=== PATIENT | female | born 1950 | race Caucasian/White ===

== ENCOUNTER 2017-07-22 12:37 | Emergency (ER) | payer MEDICARE, SELFPAY ==
[2017-07-22 13:42] VITALS: BP 160/74; PULSE 88; RESP 18; TEMP 36.9; O2SAT 97; BMI 21.6
[2017-07-22 13:57] LABS: Apearance,Urine Clear (Clear); Bilirubin,Urine Negative (Negative); Blood, Urine Negative (Negative); Color,Urine Yellow (Yellow); Glucose,Urine (UA) Negative (Negative); Ketones,Urine Negative (Negative); PH,Urine 7.5 (5.0-8.5); Protein,Urine Negative (Negative); Specific Gravity, Urine 1.015 (1.005-1.030); Urobilinogen,Urine 1 EU/dl (0.2)
[2017-07-22 13:58] LABS: UTC Leukocyte Esterase,Urine Negative (Negative); UTC Nitrate,Urine Negative (Negative)
--- NOTE | 2017-07-22 14:21 | HMH.EDUTC ---
[facility] [place] Disposition Clinical Impression: Burning with urination Disposition: Home, Self-Care Condition on Discharge: Good Instructions: Urine Culture Additional Instructions: Drink plenty of fluids FOllow up with family doctor for Urine Culture results Return if needed Referrals: Khai Cates MD [Primary Care Provider] - Time of Disposition: 14:46 Medical Decision Making Vital Signs: 07/22/17 13:42 Temperature 98.5 F Temperature Source Temporal Artery Scan Pulse Rate [Right] 88 Respiratory Rate 18 Blood Pressure [Right Arm] 160/74 Blood Pressure Mean [Right Arm] 102 Blood Pressure Source [Right Arm] Automatic Cuff Blood Pressure Position [Right Arm] Sitting 02 Sat by Pulse Oximetry 97 Oxygen Delivery Method Room Air - Lab Data Lab Results 07/22/17 13:56: Urine Color Yellow, Urine Appearance Clear, Urine pH 7.5, Ur Specific [place] 1.015, Urine Protein Negative, Urine Glucose (UA) Negative, Urine Ketones Negative, Urine Blood Negative, Urine Nitrate Negative, Urine Bilirubin Negative, Urine Urobilinogen 1, Ur Leukocyte Esterase Negative - Arya Inquiry Pt receiving controlled substance: No Arya was queried for this patient: No [facility] [place] HPI - General Stated complaint: POSS UTI Mode of Arrival: Ambulatory Source of Information: Patient Limitations: No Limitations Description of Symptoms (Recalled from Triage Doc. by RN): DYSURIA HEENT Symptoms (Recalled from RN notes): No Resp Symptoms (Recalled from RN notes): No Skin Symptoms (Recalled from RN notes): No MS Symptoms (Recalled from RN notes): No Functional Status (Recalled from RN notes): N - History of Present Illness Provider Complaint: Patient state that she has been having burning with urination, and she has been taken AZO and still having some burning with urination Severity scale (1-10): 3 Quality: burning Consistency: intermittent Relieving factors: none Exacerbating factors: none Treatments prior to arrival: none - Related Data Allergies Allergy/AdvReac Type Severity Reaction Status Date / Time No Known Drug Allergies Allergy Unknown Unverified 07/07/17 14:55 [NKDA] - Worker's Comp Is this a Worker's Comp case?: No [facility] History - *Social History Alcohol Intake: never - Psychiatric History Expresses thoughts of harming self/others: None Suicide Plan Description: No Plan - Genitourinary Reports painful urination Physical Exam - General General appearance: alert, in no apparent distress - ENT ENT exam: Present: normal exam, normal oropharynx, mucous membranes moist, TM's normal bilaterally, normal external ear exam - Respiratory Respiratory exam: Present: normal lung sounds bilaterally. Absent: respiratory distress - Cardiovascular Cardiovascular exam: Present: regular rate, normal rhythm. Absent: JVD - Abdominal Exam Abdominal exam: Present: soft, normal bowel sounds. Absent: distention, tenderness, guarding Comment: Patient still complaining of burning with urination even though she had taken AZO last week - Neurological Exam Neurological exam: Present: alert, oriented X3 - Psychiatric Psychiatric exam: Present: agitated - Other Other exam information: Patient highly agitated upon given her the results of her UA test advised patient that her urine was going to be sent for culture and she could follow up with family doctor for results and patient became more upset and left Dr MADDY office called and informed of finding and testing results and that urine was sent for culture
--- NOTE | 2017-07-22 14:28 | ED_ITS ---
[facility] [place] Disposition Clinical Impression: Burning with urination Disposition: Home, Self-Care Condition on Discharge: Good Instructions: Urine Culture Additional Instructions: Drink plenty of fluids FOllow up with family doctor for Urine Culture results Return if needed Referrals: Khai Cates MD [Primary Care Provider] - Time of Disposition: 14:46 Medical Decision Making Vital Signs: 07/22/17 13:42 Temperature 98.5 F Temperature Source Temporal Artery Scan Pulse Rate [Right] 88 Respiratory Rate 18 Blood Pressure [Right Arm] 160/74 Blood Pressure Mean [Right Arm] 102 Blood Pressure Source [Right Arm] Automatic Cuff Blood Pressure Position [Right Arm] Sitting 02 Sat by Pulse Oximetry 97 Oxygen Delivery Method Room Air - Lab Data Lab Results 07/22/17 13:56: Urine Color Yellow, Urine Appearance Clear, Urine pH 7.5, Ur Specific [place] 1.015, Urine Protein Negative, Urine Glucose (UA) Negative, Urine Ketones Negative, Urine Blood Negative, Urine Nitrate Negative, Urine Bilirubin Negative, Urine Urobilinogen 1, Ur Leukocyte Esterase Negative - Arya Inquiry Pt receiving controlled substance: No Arya was queried for this patient: No [facility] [place] HPI - General Stated complaint: POSS UTI Mode of Arrival: Ambulatory Source of Information: Patient Limitations: No Limitations Description of Symptoms (Recalled from Triage Doc. by RN): DYSURIA HEENT Symptoms (Recalled from RN notes): No Resp Symptoms (Recalled from RN notes): No Skin Symptoms (Recalled from RN notes): No MS Symptoms (Recalled from RN notes): No Functional Status (Recalled from RN notes): N - History of Present Illness Provider Complaint: Patient state that she has been having burning with urination, and she has been taken AZO and still having some burning with urination Severity scale (1-10): 3 Quality: burning Consistency: intermittent Relieving factors: none Exacerbating factors: none Treatments prior to arrival: none - Related Data Allergies Allergy/AdvReac Type Severity Reaction Status Date / Time No Known Drug Allergies Allergy Unknown Unverified 07/07/17 14:55 [NKDA] - Worker's Comp Is this a Worker's Comp case?: No [facility] History - *Social History Alcohol Intake: never - Psychiatric History Expresses thoughts of harming self/others: None Suicide Plan Description: No Plan - Genitourinary Reports painful urination Physical Exam - General General appearance: alert, in no apparent distress - ENT ENT exam: Present: normal exam, normal oropharynx, mucous membranes moist, TM's normal bilaterally, normal external ear exam - Respiratory Respiratory exam: Present: normal lung sounds bilaterally. Absent: respiratory distress - Cardiovascular Cardiovascular exam: Present: regular rate, normal rhythm. Absent: JVD - Abdominal Exam Abdominal exam: Present: soft, normal bowel sounds. Absent: distention, tenderness, guarding Comment: Patient still complaining of burning with urination even though she had taken AZO last week - Neurological Exam Neurological exam: Present: alert, oriented X3 - Psychiatric Psychiatric exam: Present: agitated - Other Other exam information: Patient highly agitated upon given her the results of her UA test advised pat
== END 2017-07-22 14:50 | disposition home or self-care (01) ==
LOC: UTC 12:44
PROVIDERS: Emergency Provider Nurse Practitioner; PCP Family Medicine
DX: R31.9 Hematuria, unspecified (principal)
CPT/HCPCS: 81003; 99202

== ENCOUNTER → 2018-01-29 09:59 | Outpatient (CLI) | payer MEDICARE, SELFPAY ==
--- NOTE | 2018-01-29 | MM_ITS ---
MM Dig screening mamm BI w/CAD CAD Screening COMPARISON: Digital mammograms with CAD 12/09/2016 and additional prominence on views left breast 12/19/2016 INDICATION: There is a history of breast cancer in patient's mother diagnosed in her 60s and maternal great-grandmother. TECHNIQUE: Standard CC and MLO images were obtained. R2 CAD reviewed. FINDINGS: Mild to moderate fibroglandular densities are seen in the subareolar regions of both breasts. There is a faint asymmetric density inner quadrant left breast and this was noted to press out on the spot compression additional views 12/19/2016 there are couple benign-appearing calcifications left breast. There is no suspicious lesion and no suspicious microcalcifications. IMPRESSION: Fibrofatty parenchyma with no suspicious lesion seen BI-RADS Category: 2 Benign Finding(s) RECOMMENDED FOLLOW-UP: 1YR - 1 YEAR FOLLOW-UP (A letter has been sent to the patient regarding results of the study.)
== END ==
PROVIDERS: PCP Family Medicine; Visit Provider Family Medicine
DX: Z12.31 Encounter for screening mammogram for malignant neoplasm of breast (principal)
CPT/HCPCS: 77067

== ENCOUNTER 2018-05-04 16:09 | Inpatient (IN) ==
[2018-05-04 16:28] LABS: Basophils % 0.4 % (0.1-2.0); Eosinophils # 0.3 K/mm3 (0.0-0.4); Eosinophils % 2.5 % (0.1-12.0); Hematocrit 44.4 % (37.0-47.0); Hemoglobin 14.8 g/dL (12.2-16.2); Lymphocytes # 4.2 K/mm3 (0.7-4.5); Lymphocytes % 35.8 K/mm3 (10-50); Mean Corpuscular HGB Conc 33.4 g/dL (31.8-35.4); Mean Corpuscular Volume 95.7 fl (81-99); Mean Platelet Volume 7.3 fl (7.4-10.4); Monocytes # 0.6 K/mm3 (0.1-1.0); Monocytes % 4.9 % (1.7-9.3); Neutrophils # 6.6 K/mm3 (1.8-7.8); Neutrophils % 56.5 % (37.0-80.0); Platelet Count 269 K/mm3 (142-424); Red Blood Count 4.65 M/mm3 (4.20-5.40); Red Cell Distribution Width 13.5 % (11.5-17.5); White Blood Count 11.6 K/mm3 (4.8-10.8)
--- NOTE | 2018-05-04 16:28 | Emergency Department Note ---
ED Disposition Clinical Impression: STEMI (ST elevation myocardial infarction) Disposition: Still a Patient Condition on Discharge: Fair - Critical Care Critical Care Time: No Attestation: On , the high probability of a clinically significant, sudden or life threatening deterioration of the following system(s) required my full and direct attention, intervention and personal management. The time I documented below is in addition to time spent performing reported procedures but includes the following listed in this critical care notation. Medical Decision Making - Arya Inquiry Pt receiving controlled substance: No Arya was queried for this patient: No Vital Signs: 05/04/18 16:10 Temperature 98.1 F Temperature Source Oral Pulse Rate [Right Radial] 74 Respiratory Rate 18 Blood Pressure [Right Arm] 97/58 L Blood Pressure Mean [Right Arm] 71 Blood Pressure Source [Right Arm] Automatic Cuff Blood Pressure Position [Right Arm] Supine 02 Sat by Pulse Oximetry 96 Oxygen Delivery Method Room Air Orders (Tests/Meds): ED MEDICATIONS Generic Name Dose Route Start Last Admin Trade Name Freq PRN Reason Stop Dose Admin Sodium Chloride 1,000 mls @ 999 mls/hr 05/04/18 16:30 Sod Chlor 0.9% 1000ml Bag IV 05/04/18 17:30 .Q1H1M DEMETRIS Ticagrelor 180 mg 05/04/18 16:24 Brilinta 90mg Tablet PO 05/04/18 16:25 ONCE ONE Discontinued Medications Generic Name Dose Route Start Last Admin Trade Name Freq PRN Reason Stop Dose Admin Heparin Sodium (Porcine) 6,100 unit 05/04/18 16:23 Heparin Sodium 5,000 Units/Ml Vial 100 unit/kg (6100 unit) 05/04/18 16:24 IV ONCE ONE - ECG Data Tracing #1 Normal sinus rhythm 66/min first-degree AV block with ST elevation MS and inferior leads and reciprocal changes in the anterior leads. ECG initial impression date: 05/04/18 ECG initial impression time: 16:15 Medical Decision Narrative: As described in the HPI I contacted Dr. Robins who recommended heparin bolus , berlnta and transport to lab[facility]. Chest Pain HPI - General Chief Complaint: Chest Pain Stated Complaint: Chest pain Time Seen by Provider: 05/04/18 16:10 Mode of Arrival: Wheelchair Limitations: No Limitations Description of Symptoms (Recalled from ER Triage Doc. 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 On arrival to the ED obtain 12-lead EKG that showed ST elevation MS in inferior leads with reciprocal changes in anterior leads. I contacted Dr. Robins economic analyst and activated the Clutch Mechanic. He recommended heparin 6000 units, Brilinta on 180 mg p.o. and transport to the Clutch Mechanic. MD complaint: chest pain indicative of cardiac Onset (ago): minute(s) (45 minutes prior to arrival) Time: 15:45 Duration: constant Activity at onset: during rest Pain location: substernal Severity: severe Pain radiation: none Relieving factors: nothing Exacerbating factors: nothing Associated symptoms: nausea, vomiting Treatments prior to or on arrival for Cardiac Chest Pain: none - Related Data Allergies Allergy/AdvReac Type Severity Reaction Status Date / Time No Known Drug Allergies Allergy Unknown Verified 05/04/18 16:18 [NKDA] [facility] History I have reviewed the patient's past medical history: Yes - Social History Educational Level: Completed High School Smoking Status: Current every day smoker Tobacco Type: cigarettes Alcohol Intake: never - Psychiatric History Expresses thoughts of harming self/others: None Suicide Plan Description: No Plan ROS Obtained: Yes All systems reviewed & no additional complaints Physical Exam - General General appearance: alert, in no apparent distress - Head Head exam: atraumatic, normocephalic, normal inspection - Eye Eye exam: Present: normal appearance, PERRL, EOMI. Absent: scleral icterus, nystagmus - ENT ENT exam: Present: normal exam, normal oropharynx, mucous membranes moist, TM's normal bilaterally, normal external ear exam - Neck Neck exam: Present: normal inspection, full ROM, trachea midline. Absent: tenderness, meningismus, lymphadenopathy - Chest Chest inspection: Present: normal inspection, symmetric chest wall rise. Absent: tenderness - Respiratory Respiratory exam: Present: normal lung sounds bilaterally. Absent: respiratory distress - Cardiovascular Cardiovascular exam: Present: regular rate, normal rhythm, normal heart sounds. Absent: JVD - Abdominal Exam Abdominal exam: Present: soft, normal bowel sounds. Absent: distention, tenderness, guarding - Extremities Exam Extremities exam: Present: normal inspection, full ROM, normal capillary refill. Absent: tenderness, calf tenderness - Back Exam Back exam: Present: normal inspection. Absent: tenderness, CVA tenderness (R), CVA tenderness (L) - Neurological Exam Neurological exam: Present: alert, oriented X3, CN II-XII intact, motor sensory deficit - Psychiatric Psychiatric exam: Present: normal affect, normal mood - Skin Skin exam: Present: warm, dry, intact, normal color - Lymphatic Lymphatic Findings: no adenopathy
[2018-05-04 16:37] LABS: Activated Partial Thrombo Time 24.5 seconds (23.6-34.0); INR 1.06 (0.9-1.1); Prothrombin Time 10.9 seconds (9.4-11.8)
[2018-05-04 16:53] LABS: Anion Gap 12.4 mEq/L (5-15); Potassium 3.4 mmoL/L (3.5-5.1)
--- NOTE | 2018-05-04 18:24 | History & Physical Report ---
*Admission Date: 05/04/18 <Milagro Alexander - 05/04/18 18:27> *Chief complaint: chest pain; STEMI <Milagro Alexander - 05/04/18 18:27> *History of present illness: Ms. gonzalez is a 67-year-old female with a history of hypertension anxiety depression, and some alcohol abuse and tobacco abuse who presented to [facility] emergency room with severe sharp left anterior chest pain associated with nausea and vomiting. Patient was seen in the office of [facility] early in the afternoon and was felt to have a bronchitis. At that time she denied any chest pain and shortness of breath. She noted that she had not felt well for the past 3 weeks; she had a flu shot 2 weeks ago and felt that she was worse after this. She had a nonproductive dry cough; was short of breath with exertion; she had some wheezing, chest congestion, headache, body aches, and dizziness. She did have some chest discomfort with deep inspiration. After leaving the office of [facility] which time she did some grocery shopping and obtained her medicine. While waiting for her medicine she became nauseated. When traveling home her had to stop at which time she vomited. She is did start to have some chest pain at some point in time. It became excruciating by the time she got to the emergency room at [facility] Patient was evaluated in the emergency room with noted EKG changes. Dr. Robins was notified and she was transferred to the cardiac [facility] for immediate cardiac cath. Troponin I was initially mildly elevated. Cardiac cath impression and plan are as follows: IMPRESSION: 1. Acute myocardial infarction involving a proximal massively large dominant right coronary artery which functions as both the dominant right coronary artery and the nondominant circumflex artery 2. Successful thrombectomy followed by drug-eluting stenting to the proximal mid and distal dominant right coronary artery 3. Mastic ejection fraction with mild regional wall motion abnormality 4. Mildly elevated LVEDP although probably normal for the circumstances 5. Moderate disease in the mid LAD PLAN: 1. Brilinta and aspirin for one year 2. Absolute tobacco cessation and avoidance 3. LDL less than 55 4. Supportive care for the next 48 hours 5. Carvedilol plus lisinopril once patient is stable with plans to uptitrate At the time of this exam patient is sitting up in bed eating a sandwich. She still has some left anterior chest pain but nothing like it was prior to the cath. Has shortness of breath and nausea. <Milagro Alexander 05/04/18 18:41> [facility] History Medical History: Reports:: Anxiety, Atherosclerotic Heart Disease, Chronic Obstructive Pulmonary Disease (COPD), Coronary Artery Disease, Depression, Gastroesophageal Reflux Disease(GERD), Hyperlipidemia Denies:: Diabetes Mellitus Type 1, Diabetes Mellitus Type 2 <AlexanderMilagro Yovani 05/04/18 18:41> Laterality Cases: Bilateral: Cataract <BenjaminMilagro Yovani 05/04/18 18:41> Other Surgeries: Yes: Appendectomy <Milagro Alexander Yovani 05/04/18 18:27> - *Social History Educational Level: Completed High School <Alexander,Milagro Yovani 05/04/18 18:27> Smoking Status: Current every day smoker <Alexander,Milagro Yovani 05/04/18 18:27> Tobacco Type: cigarettes <Milagro Alexander 05/04/18 18:27> # Packs/Day (cigarettes): 15 <Milagro Alexander 05/04/18 18:27> Alcohol Intake: never <Milagro Alexander Yovani 05/04/18 18:27> Occupational Status: retired <BenjaminMilagro Yovani 05/04/18 18:27> Household Members: spouse <Milagro Alexander 05/04/18 18:27> - Psychiatric History Expresses thoughts of harming self/others: None <Milagro Alexander 05/04/18 18:27> Suicide Plan Description: No Plan <Alexander,Milagro - 05/04/18 18:27> *Family Hx:: Cancer, Coronary Artery Disease, Diabetes, Heart Attack, Hyperlipidemia, Hypertension, Kidney Disease, Stroke, Thyroid Disorder <Milagro Alexander 05/04/18 18:27> Review of Systems - Constitutional Reports body ache(s), Reports headache(s), Reports weakness <Milagro Alexander 05/04/18 18:41> - ENT Denies ear pain, Denies sore throat <Milagro Alexander 05/04/18 18:41> - *Cardiovascular Reports chest pain, Reports shortness of breath with activity, Denies irregular heart rhythm, Denies leg swelling <Milagro Alexander - 05/04/18 18:41> - *Respiratory Reports cough (Dry) <Milagro Alexander - 05/04/18 18:41> - *Gastrointestinal Reports nausea, Reports vomiting, Denies abdominal pain <Milagro Alexander - 05/04/18 18:41> - *Genitourinary Denies difficulty urinating <Milagro Alexander - 05/04/18 18:41> - *Musculoskeletal Reports body aches <Milagro Alexander - 05/04/18 18:41> - *Neurologic Reports headache(s) <Milagro Alexander 05/04/18 18:41> Meds Allergies Allergy/AdvReac Type Severity Reaction Status Date / Time No Known Drug Allergies Allergy Unknown Verified 05/04/18 16:18 [NKDA] <Larry Baez - 05/05/18 08:56> Exam Vital signs and Labs for Last 24 Hours: Temp Pulse Resp BP Pulse Ox 97.6 F 77 16 138/75 100 05/05/18 00:00 05/05/18 06:45 05/05/18 06:45 05/05/18 06:45 05/05/18 06:45 Laboratory Results - last 24 hr 05/04/18 16:26: WBC 11.6 H, RBC 4.65, Hgb 14.8, Hct 44.4, MCV 95.7, MCH 32.0 H, MCHC 33.4, RDW 13.5, Plt Count 269, MPV 7.3 L, Neut % (Auto) 56.5, Lymph % (Auto) 35.8, [place] % (Auto) 4.9, Eos % (Auto) 2.5, Baso % (Auto) 0.4, Neut # (Auto) 6.6, Lymph # (Auto) 4.2, [place] # (Auto) 0.6, Eos # (Auto) 0.3, Baso # (A uto) 0.0 05/04/18 16:26: Sodium 139, Potassium 3.4 L, Chloride 102, Carbon Dioxide 28, Anion Gap 12.4, BUN 11, Creatinine 0.91, Estimated Creat Clear 51, Estimated GFR 61, Est GFR ( Amer) 74, Glucose 175 H, Calcium 9.0, Total Creatine Kinase 44, CK-MB (CK-2) 1.0, CK-MB (CK-2) Rel Index 2.3, Troponin I 0.08 H 05/04/18 16:26: PT 10.9, INR 1.06, APTT 24.5 05/04/18 16:34: Activated Clotting Time 267 H* 05/04/18 16:53: Activated Clotting Time 323 H* D 05/05/18 05:28: WBC 11.3 H, RBC 4.24, Hgb 13.5, Hct 39.9, MCV 94.0, MCH 31.9 H, MCHC 33.9, RDW 13.6, Plt Count 244, MPV 8.0, Neut % (Auto) 81.4 H, Lymph % (Auto) 14.3, [place] % (Auto) 4.1, Eos % (Auto) 0.1, Baso % (Auto) 0.1, Neut # (Auto) 9.2 H, Lymph # (Auto) 1.6, [place] # (Auto) 0.5, Eos # (Auto) 0.0, Baso # (Auto) 0.0 05/05/18 05:28: Sodium 131 L, Potassium 3.1 L, Chloride 98, Carbon Dioxide 28, Anion Gap 8.1, BUN 12, Creatinine 0.75, Estimated Creat Clear 54, Estimated GFR 77, Est GFR ( Amer) 93 D, Glucose 174 H, Calcium 8.8 <Larry Baez - 05/05/18 08:56> Temp Pulse Resp BP Pulse Ox 98.2 F 72 20 115/64 95 05/04/18 16:51 05/04/18 17:18 05/04/18 17:18 05/04/18 17:18 05/04/18 17:18 Laboratory Results - last 24 hr 05/04/18 16:26: WBC 11.6 H, RBC 4.65, Hgb 14.8, Hct 44.4, MCV 95.7, MCH 32.0 H, MCHC 33.4, RDW 13.5, Plt Count 269, MPV 7.3 L, Neut % (Auto) 56.5, Lymph % (Auto) 35.8, [place] % (Auto) 4.9, Eos % (Auto) 2.5, Baso % (Auto) 0.4, Neut # (Auto) 6.6, Lymph # (Auto) 4.2, [place] # (Auto) 0.6, Eos # (Auto) 0.3, Baso # (Auto) 0.0 05/04/18 16:26: Sodium 139, Potassium 3.4 L, Chloride 102, Carbon Dioxide 28, Anion Gap 12.4, BUN 11, Creatinine 0.91, Estimated Creat Clear 51, Estimated GFR 61, Est GFR ( Amer) 74, Glucose 175 H, Calcium 9.0, Total Creatine Kinase 44, CK-MB (CK-2) 1.0, CK-MB (CK-2) Rel Index 2.3, Troponin I 0.08 H 05/04/18 16:26: PT 10.9, INR 1.06, APTT 24.5 05/04/18 16:34: Activated Clotting Time 267 H* 05/04/18 16:53: Activated Clotting Time 323 H* D <Milagro Alexander - 05/04/18 18:27> I & O for Last 24 hours: Intake & Output 05/02/18 05/03/18 05/04/18 05/05/18 11:59 11:59 11:59 11:59 Intake Total 600 / 600 Balance 600 / 600 Weight 142 lb 9 oz <Larry Baez - 05/05/18 08:56> Intake & Output 05/02/18 05/03/18 05/04/18 05/05/18 11:59 11:59 11:59 11:59 Weight 135 lb <Milagro Alexander - 05/04/18 18:27> - Constitutional no acute distress <Milagro Alexander - 05/04/18 18:41> - *Routine HEENT Exam Head: Present: normocephalic, atraumatic <Milagro Alexander - 05/04/18 18:41> Eye: Present: PERRL. Absent: conjunctival icterus, scleral injection <Milagro Alexander - 05/04/18 18:41> ENT: Present: mucous membranes moist, oropharynx clear <Milagro Alexander - 05/04/18 18:41> - *Routine Respiratory Exam Present: wheezes <Milagro Alexander - 05/04/18 18:41> - *Routine Cardiovascular Exam Present: RRR <Milagro Alexander - 05/04/18 18:41> Comments: Monitor showing sinus rhythm with ST elevation <Milagro Alexander - 05/04/18 18:41> - *Routine Abdominal Exam Present: soft, normoactive bowel sounds. Absent: tenderness <Milagro Alexander - 05/04/18 18:41> - *Routine Extremities Exam Absent: edema, tenderness <Milagro Alexander - 05/04/18 18:41> - *Routine Neurological Exam Present: alert, oriented X3 <Milagro Alexander - 05/04/18 18:41> Assessment and Plan (1) STEMI (ST elevation myocardial infarction) Current visit: Yes Status: Acute Category: Medical Code(s): I21.3 - ST elevation (STEMI) myocardial infarction of unspecified site (2) HTN (hypertension) Current visit: Yes Status: Chronic Category: Medical Code(s): I10 - Essential (primary) hypertension (3) URI (upper respiratory infection) Current visit: Yes Status: Acute Category: Medical Code(s): J06.9 - Acute upper respiratory infection, unspecified (4) Anxiety Current visit: Yes Status: Chronic Category: Medical Code(s): F41.9 - Anxiety disorder, unspecified (5) Nausea Current visit: Yes Status: Acute Category: Medical Code(s): R11.0 - Nausea (6) GERD (gastroesophageal reflux disease) Current visit: Yes Status: Acute Category: Medical Code(s): K21.9 - Gastro-esophageal reflux disease without esophagitis (7) Hypokalemia Current visit: Yes Status: Acute Category: Medical Code(s): E87.6 - Hypokalemia <Larry Baez - 05/05/18 08:56> (1) STEMI (ST elevation myocardial infarction) Current visit: Yes Status: Acute Category: Medical Code(s): I21.3 - ST elevation (STEMI) myocardial infarction of unspecified site (2) HTN (hypertension) Current visit: Yes Status: Acute Category: Medical Code(s): I10 - Essential (primary) hypertension (3) URI (upper respiratory infection) Current visit: Yes Status: Acute Category: Medical Code(s): J06.9 - Acute upper respiratory infection, unspecified (4) Anxiety Current visit: Yes Status: Acute Category: Medical Code(s): F41.9 - Anxiety disorder, unspecified (5) Nausea (6) GERD (gastroesophageal reflux disease) (7) Hypokalemia <Milagro Alexander - 05/04/18 18:28> - Assessment and plan all Dx Assessment and Plan for all problems:: Patient seen and examined. Concur with above assesment and plan. She is comfortable at present. <Larry Baez - 05/05/18 08:56> continue care and meds as per cardiology; will reassess need for meds for bronchitis in AM <Milagro Alexander - 05/04/18 18:41>
[2018-05-05 06:23] LABS: Anion Gap 8.1 mEq/L (5-15); Calcium 8.8 mg/dL (8.5-10.1); Potassium 3.1 mmoL/L (3.5-5.1)
[2018-05-05 07:58] LABS: Basophils % 0.1 % (0.1-2.0); Eosinophils % 0.1 % (0.1-12.0); Hematocrit 39.9 % (37.0-47.0); Hemoglobin 13.5 g/dL (12.2-16.2); Lymphocytes # 1.6 K/mm3 (0.7-4.5); Lymphocytes % 14.3 K/mm3 (10-50); Mean Corpuscular HGB Conc 33.9 g/dL (31.8-35.4); Mean Corpuscular Hemoglobin 31.9 pg (27.0-31.2); Monocytes # 0.5 K/mm3 (0.1-1.0); Monocytes % 4.1 % (1.7-9.3); Neutrophils # 9.2 K/mm3 (1.8-7.8); Neutrophils % 81.4 % (37.0-80.0); Platelet Count 244 K/mm3 (142-424); Red Blood Count 4.24 M/mm3 (4.20-5.40); Red Cell Distribution Width 13.6 % (11.5-17.5); White Blood Count 11.3 K/mm3 (4.8-10.8)
--- NOTE | 2018-05-05 08:27 | Progress Note ---
<Milagro Alexander - Last Filed: 05/05/18 09:43> Internal Medicine - PN: Subj Interval history: Patient's slept very little last night. She had some midsternalepigastric discomfort. Mylanta really did not help much. She is somewhat nauseated this morning and does not feel like eating breakfast. Monitor is showing sinus rhythm with ST depression and frequent ectopy. Reviewed nurse's notes. Due to anesthetia DNR not discussed last night with patient. I did discuss with patient this morning and explained to her what this meant specifically. She does not have a living will and would like to initiate this process. We will consult care management for this. At this time she does not want to be a DNR. Patient is alert and oriented x3 this a.m. Exam Vital signs and Labs for Last 24 Hours: Temp Pulse Resp BP Pulse Ox 97.6 F 77 16 138/75 100 05/05/18 00:00 05/05/18 06:45 05/05/18 06:45 05/05/18 06:45 05/05/18 06:45 Laboratory Results - last 24 hr 05/04/18 16:26: WBC 11.6 H, RBC 4.65, Hgb 14.8, Hct 44.4, MCV 95.7, MCH 32.0 H, MCHC 33.4, RDW 13.5, Plt Count 269, MPV 7.3 L, Neut % (Auto) 56.5, Lymph % (Auto) 35.8, Fergus % (Auto) 4.9, Eos % (Auto) 2.5, Baso % (Auto) 0.4, Neut # (Auto) 6.6, Lymph # (Auto) 4.2, Fergus # (Auto) 0.6, Eos # (Auto) 0.3, Baso # (Auto) 0.0 05/04/18 16:26: Sodium 139, Potassium 3.4 L, Chloride 102, Carbon Dioxide 28, Anion Gap 12.4, BUN 11, Creatinine 0.91, Estimated Creat Clear 51, Estimated GFR 61, Est GFR ( Amer) 74, Glucose 175 H, Calcium 9.0, Total Creatine Kinase 44, CK-MB (CK-2) 1.0, CK-MB (CK-2) Rel Index 2.3, Troponin I 0.08 H 05/04/18 16:26: PT 10.9, INR 1.06, APTT 24.5 05/04/18 16:34: Activated Clotting Time 267 H* 05/04/18 16:53: Activated Clotting Time 323 H* D 05/05/18 05:28: WBC 11.3 H, RBC 4.24, Hgb 13.5, Hct 39.9, MCV 94.0, MCH 31.9 H, MCHC 33.9, RDW 13.6, Plt Count 244, MPV 8.0, Neut % (Auto) 81.4 H, Lymph % (Auto) 14.3, Fergus % (Auto) 4.1, Eos % (Auto) 0.1, Baso % (Auto) 0.1, Neut # (Auto) 9.2 H, Lymph # (Auto) 1.6, Fergus # (Auto) 0.5, Eos # (Auto) 0.0, Baso # (Auto) 0.0 05/05/18 05:28: Sodium 131 L, Potassium 3.1 L, Chloride 98, Carbon Dioxide 28, Anion Gap 8.1, BUN 12, Creatinine 0.75, Estimated Creat Clear 54, Estimated GFR 77, Est GFR ( Amer) 93 D, Glucose 174 H, Calcium 8.8 I & O for Last 24 hours: Intake & Output 05/02/18 05/03/18 05/04/18 05/05/18 11:59 11:59 11:59 11:59 Intake Total 480 / 480 Balance 480 / 480 Weight 142 lb 9 oz - Constitutional no acute distress Comments: Sitting up in the bed. - *Routine Respiratory Exam Comments: Scattered wheezing bilaterally with coarse rhonchi - *Routine Cardiovascular Exam Present: RRR (Monitor showing sinus rhythm with ST elevation and frequent ectopy) - *Routine Abdominal Exam Present: soft, normoactive bowel sounds. Absent: tenderness - *Routine Extremities Exam Absent: edema, calf tenderness - *Routine Neurological Exam Present: alert, oriented X3 Assessment and Plan (1) STEMI (ST elevation myocardial infarction) Current visit: Yes Status: Acute Category: Medical Code(s): I21.3 - ST elevation (STEMI) myocardial infarction of unspecified site (2) HTN (hypertension) Current visit: Yes Status: Chronic Category: Medical Code(s): I10 - Essential (primary) hypertension (3) URI (upper respiratory infection) Current visit: Yes Status: Acute Category: Medical Code(s): J06.9 - Acute upper respiratory infection, unspecified (4) Anxiety Current visit: Yes Status: Chronic Category: Medical Code(s): F41.9 - Anxiety disorder, unspecified (5) Nausea Current visit: Yes Status: Acute Category: Medical Code(s): R11.0 - Nausea (6) GERD (gastroesophageal reflux disease) Current visit: Yes Status: Acute Category: Medical Code(s): K21.9 - Gastro-esophageal reflux disease without esophagitis (7) Hypokalemia Current visit: Yes Status: Acute Category: Medical Code(s): E87.6 - Hypokalemia - Assessment and plan all Dx Assessment and Plan for all problems:: Patient will be started on albuterol inhaler for her wheezing, Protonix for her GERD and epigastric pain, potassium for her hypokalemia, Zofran for her nausea, and we will do the chest x-ray portable. Discussed with [facility]. Cardiac meds jessica managed by cardiology. <Larry Baez - Last Filed: 05/05/18 10:03> Exam Vital signs and Labs for Last 24 Hours: Temp Pulse Resp BP Pulse Ox 97.6 F 77 16 138/75 100 05/05/18 00:00 05/05/18 06:45 05/05/18 06:45 05/05/18 06:45 05/05/18 06:45 Laboratory Results - last 24 hr 05/04/18 16:26: WBC 11.6 H, RBC 4.65, Hgb 14.8, Hct 44.4, MCV 95.7, MCH 32.0 H, MCHC 33.4, RDW 13.5, Plt Count 269, MPV 7.3 L, Neut % (Auto) 56.5, Lymph % (Auto) 35.8, Fergus % (Auto) 4.9, Eos % (Auto) 2.5, Baso % (Auto) 0.4, Neut # (Auto) 6.6, Lymph # (Auto) 4.2, Fergus # (Auto) 0.6, Eos # (Auto) 0.3, Baso # (Auto) 0.0 05/04/18 16:26: Sodium 139, Potassium 3.4 L, Chloride 102, Carbon Dioxide 28, Anion Gap 12.4, BUN 11, Creatinine 0.91, Estimated Creat Clear 51, Estimated GFR 61, Est GFR ( Amer) 74, Glucose 175 H, Calcium 9.0, Total Creatine Kinase 44, CK-MB (CK-2) 1.0, CK-MB (CK-2) Rel Index 2.3, Troponin I 0.08 H 05/04/18 16:26: PT 10.9, INR 1.06, APTT 24.5 05/04/18 16:34: Activated Clotting Time 267 H* 05/04/18 16:53: Activated Clotting Time 323 H* D 05/05/18 05:28: WBC 11.3 H, RBC 4.24, Hgb 13.5, Hct 39.9, MCV 94.0, MCH 31.9 H, MCHC 33.9, RDW 13.6, Plt Count 244, MPV 8.0, Neut % (Auto) 81.4 H, Lymph % (Auto) 14.3, Fergus % (Auto) 4.1, Eos % (Auto) 0.1, Baso % (Auto) 0.1, Neut # (Auto) 9.2 H, Lymph # (Auto) 1.6, Fergus # (Auto) 0.5, Eos # (Auto) 0.0, Baso # (Auto) 0.0 05/05/18 05:28: Sodium 131 L, Potassium 3.1 L, Chloride 98, Carbon Dioxide 28, Anion Gap 8.1, BUN 12, Creatinine 0.75, Estimated Creat Clear 54, Estimated GFR 77, Est GFR ( Amer) 93 D, Glucose 174 H, Calcium 8.8 I & O for Last 24 hours: Intake & Output 05/02/18 05/03/18 05/04/18 05/05/18 11:59 11:59 11:59 11:59 Intake Total 600 / 600 Balance 600 / 600 Weight 142 lb 9 oz Assessment and Plan (1) STEMI (ST elevation myocardial infarction) Current visit: Yes Status: Acute Category: Medical Code(s): I21.3 - ST elevation (STEMI) myocardial infarction of unspecified site (2) HTN (hypertension) Current visit: Yes Status: Chronic Category: Medical Code(s): I10 - Essential (primary) hypertension (3) URI (upper respiratory infection) Current visit: Yes Status: Acute Category: Medical Code(s): J06.9 - Acute upper respiratory infection, unspecified (4) Anxiety Current visit: Yes Status: Chronic Category: Medical Code(s): F41.9 - Anxiety disorder, unspecified (5) Nausea Current visit: Yes Status: Acute Category: Medical Code(s): R11.0 - Nausea (6) GERD (gastroesophageal reflux disease) Current visit: Yes Status: Acute Category: Medical Code(s): K21.9 - Gastro-esophageal reflux disease without esophagitis (7) Hypokalemia Current visit: Yes Status: Acute Category: Medical Code(s): E87.6 - Hypokalemia - Assessment and plan all Dx Assessment and Plan for all problems:: Patient seen and examined. Nursing notes reviewed from last night and, to clarify, I did not refuse to sign the DNR but simply did not feel it was a legitimate document as Ms. Pickard signed it while under influence of sedative medications administered during her recent heart cath. Indeed, this morning, s he is more clear about her wishes and has rescinded the form she signed last night and this has been removed from her chart. SHe will provided additional information about advanced directives.
--- NOTE | 2018-05-05 08:40 | Pharmacy Consult Notes ---
[facility] Pharmacy VTE Monitoring - Patient Demographics Admission date: 05/04/18 Report Date: 05/05/18 Time: 08:40 Allergies/Adverse Reactions: Patient Allergies No Known Drug Allergies [NKDA] Allergy (Unknown, Verified 05/04/18 16:18) Height: 1.65 m Weight: 64.665 kg Patient Problems: Current Active Problems STEMI (ST elevation myocardial infarction) (Acute) HTN (hypertension) (Chronic) URI (upper respiratory infection) (Acute) Anxiety (Chronic) Nausea (Acute) GERD (gastroesophageal reflux disease) (Acute) Hypokalemia (Acute) - VTE Risk Labs: VTE Related Lab Results Hgb 13.5 g/dL (12.2-16.2) 05/05/18 05:28 Hct 39.9 % (37.0-47.0) 05/05/18 05:28 Plt Count 244 K/mm3 (142-424) 05/05/18 05:28 PT 10.9 seconds (9.4-11.8) 05/04/18 16:26 INR 1.06 (0.9-1.1) 05/04/18 16:26 APTT 24.5 seconds (23.6-34.0) 05/04/18 16:26 BUN 12 mg/dL (7-18) 05/05/18 05:28 Creatinine 0.75 mg/dL (0.55-1.02) 05/05/18 05:28 Estimated Creat Clear 54 mL/min (0-300) 05/05/18 05:28 Was VTE Risk Assessment Performed: Yes VTE Score: 2 VTE Risk Level: Low Risk - Prophylaxis VTE Prophylaxis Ordered?: Yes Types of VTE Prophylaxis: TEDS Knee High Location of Applied Device: Bilateral Lower Extremeties
--- NOTE | 2018-05-05 09:04 | Consult Report ---
History of Present Illness Consult date: 05/05/18 Consult reason: chest pain Chief complaint: Chest pain Additional Medical History:: 1. Tobacco use 2. History of ETOH use 3. HTN 4. Anxiety/Depression 5. CAD A. Inferior STEMI, 05/04/2018 B. VICTORINO to Dominant RCA, 05/04/2018 6. Hyperlipidemia History of present illness: Ms. gonzalez is a 67-year-old female with a history of hypertension, anxiety/depression, and some alcohol abuse and tobacco abuse who presented to [facility] emergency room with severe sharp left anterior chest pain associated with nausea and vomiting. Patient was seen in the office of [facility] early in the afternoon and was felt to have a bronchitis. At that time she denied any chest pain and shortness of breath. She noted that she had not felt well for the past 3 weeks; she had a flu shot 2 weeks ago and felt that she was worse after this. She had a nonproductive dry cough; was short of breath with exertion; she had some wheezing, chest congestion, headache, body aches, and dizziness. She did have some chest discomfort with deep inspiration. After leaving the office of [facility] patient states [facility] at which time she did some grocery shopping and obtained her medicine. While waiting for her medicine she became nauseated. When traveling home her had to stop at which time she vomited. She did start to have some chest pain at some point in time. It became excruciating by the time she got to the emergency room at [facility] Patient was evaluated in the emergency room with noted EKG changes. Dr. Robins was notified and she was transferred to the cardiac [facility]ment for immediate cardiac cath. Troponin I was initially mildly elevated. The above per Milagro Alexander APRN. Pt denies any previous cardiac problems but states her family is riddled with that and cancer. EKG in ER showed inferior STEMI. [facility] History Medical History: Reports:: Anxiety, Atherosclerotic Heart Disease, Chronic Obstructive Pulmonary Disease (COPD), Coronary Artery Disease, Depression, Gastroesophageal Reflux Disease(GERD), Hyperlipidemia Denies:: Diabetes Mellitus Type 1, Diabetes Mellitus Type 2 Laterality Cases: Bilateral: Cataract Other Surgeries: Yes: Appendectomy - *Social History Educational Level: Completed High School Smoking Status: Current every day smoker Tobacco Type: cigarettes # Packs/Day (cigarettes): 15 Alcohol Intake: never Occupational Status: retired Household Members: spouse - Psychiatric History Expresses thoughts of harming self/others: None Suicide Plan Description: No Plan Pschychiatric History:: Reports:: Anxiety, Depression *Family Hx:: Cancer, Coronary Artery Disease, Diabetes, Heart Attack, Hyperlipidemia, Hypertension, Kidney Disease, Stroke, Thyroid Disorder Meds Home Medications Medication Instructions Recorded Confirmed Type Alendronate Sodium 70 mg PO WEEKLY 05/04/18 05/05/18 History Atorvastatin Calcium [Atorvastatin 40 mg PO HS 05/04/18 05/04/18 History 40mg Tab] Losartan/Hydrochlorothiazide 1 tab PO DAILY 05/04/18 05/04/18 History [Losartan-Hctz 100-25 mg Tab] Omeprazole [Omeprazole 40mg 40 mg PO DAILY 05/04/18 05/04/18 History Capsule] Potassium Chloride [Klor-Con 10mEq 10 meq PO DAILY 05/04/18 05/04/18 History tab] Allergies Allergy/AdvReac Type Severity Reaction Status Date / Time No Known Drug Allergies Allergy Unknown Verified 05/04/18 16:18 [NKDA] Review of Systems - *Cardiovascular Reports chest pain, Reports shortness of breath with activity - *Respiratory Reports shortness of breath - *Gastrointestinal Reports abdominal pain, Reports nausea, Reports vomiting - *Genitourinary Denies blood in urine - *Neurologic Reports headache(s), Reports weakness Exam Vital signs and Labs for Last 24 Hours: Temp Pulse Resp BP Pulse Ox 97.6 F 77 16 138/75 100 05/05/18 00:00 05/05/18 06:45 05/05/18 06:45 05/05/18 06:45 05/05/18 06:45 Laboratory Results - last 24 hr 05/04/18 16:26: WBC 11.6 H, RBC 4.65, Hgb 14.8, Hct 44.4, MCV 95.7, MCH 32.0 H, MCHC 33.4, RDW 13.5, Plt Count 269, MPV 7.3 L, Neut % (Auto) 56.5, Lymph % (Auto) 35.8, [place] % (Auto) 4.9, Eos % (Auto) 2.5, Baso % (Auto) 0.4, Neut # (Auto) 6.6, Lymph # (Auto) 4.2, [place] # (Auto) 0.6, Eos # (Auto) 0.3, Baso # (Auto) 0.0 05/04/18 16:26: Sodium 139, Potassium 3.4 L, Chloride 102, Carbon Dioxide 28, Anion Gap 12.4, BUN 11, Creatinine 0.91, Estimated Creat Clear 51, Estimated GFR 61, Est GFR ( Amer) 74, Glucose 175 H, Calcium 9.0, Total Creatine Kinase 44, CK-MB (CK-2) 1.0, CK-MB (CK-2) Rel Index 2.3, Troponin I 0.08 H 05/04/18 16:26: PT 10.9, INR 1.06, APTT 24.5 05/04/18 16:34: Activated Clotting Time 267 H* 05/04/18 16:53: Activated Clotting Time 323 H* D 05/05/18 05:28: WBC 11.3 H, RBC 4.24, Hgb 13.5, Hct 39.9, MCV 94.0, MCH 31.9 H, MCHC 33.9, RDW 13.6, Plt Count 244, MPV 8.0, Neut % (Auto) 81.4 H, Lymph % (Auto) 14.3, [place] % (Auto) 4.1, Eos % (Auto) 0.1, Baso % (Auto) 0.1, Neut # (Auto) 9.2 H, Lymph # (Auto) 1.6, [place] # (Auto) 0.5, Eos # (Auto) 0.0, Baso # (Auto) 0.0 05/05/18 05:28: Sodium 131 L, Potassium 3.1 L, Chloride 98, Carbon Dioxide 28, Anion Gap 8.1, BUN 12, Creatinine 0.75, Estimated Creat Clear 54, Estimated GFR 77, Est GFR ( Amer) 93 D, Glucose 174 H, Calcium 8.8 I & O for Last 24 hours: Intake & Output 05/02/18 05/03/18 05/04/18 05/05/18 11:59 11:59 11:59 11:59 Intake Total 600 / 600 Balance 600 / 600 Weight 142 lb 9 oz - *Routine HEENT Exam Head: Present: normocephalic Eye: Present: EOMI, PERRL ENT: Present: mucous membranes moist - *Routine Neck Exam Present: supple. Absent: JVD, carotid bruit - *Routine Respiratory Exam Present: rhonchi, wheezes. Absent: accessory muscle use, rales - *Routine Cardiovascular Exam Present: RRR. Absent: murmur, gallop, rubs - *Routine Abdominal Exam Present: soft. Absent: tenderness, distended, guarding - *Routine Extremities Exam Absent: edema, calf tenderness - *Routine Neurological Exam Present: alert, oriented X3, moving all extremities Assessment and Plan (1) STEMI (ST elevation myocardial infarction) Current visit: Yes Status: Acute Category: Medical Code(s): I21.3 - ST elevation (STEMI) myocardial infarction of unspecified site (2) HTN (hypertension) Current visit: Yes Status: Chronic Category: Medical Code(s): I10 - Essential (primary) hypertension (3) URI (upper respiratory infection) Current visit: Yes Status: Acute Category: Medical Code(s): J06.9 - Acute upper respiratory infection, unspecified (4) Anxiety Current visit: Yes Status: Chronic Category: Medical Code(s): F41.9 - Anxiety disorder, unspecified (5) Nausea Current visit: Yes Status: Acute Category: Medical Code(s): R11.0 - Nausea (6) GERD (gastroesophageal reflux disease) Current visit: Yes Status: Acute Category: Medical Code(s): K21.9 - Gastro-esophageal reflux disease without esophagitis (7) Hypokalemia Current visit: Yes Status: Acute Category: Medical Code(s): E87.6 - Hypokalemia - Assessment and plan all Dx Assessment and Plan for all problems:: 1. Continue DAPT with ASA and brilinta 2. Will start low dose beta tesha and ABEL or ARB due to STEMI. 3. Check Echo due to STEMI 4. Encouraged smoking cessation. 5. Continue to monitor for at least 48 hrs after cath/stenting.
[2018-05-06 07:45] LABS: Chol/HDL Ratio 6.4 (1-3.5)
--- NOTE | 2018-05-06 08:14 | Progress Note ---
<Ama Recinos - Last Filed: 05/06/18 08:12> Internal Medicine - PN: Subj *Date: 05/06/18 *Time: 08:12 Interval history: Patient is feeling much better today. She states she had some pain in the back of her neck when she first woke up but this is resolved. She denies any other pain today. She states she slept well, ate some this morning, and was able to bathe herself. Exam Vital signs and Labs for Last 24 Hours: Temp Pulse Resp BP Pulse Ox 97.9 F 78 16 117/64 95 05/06/18 06:00 05/06/18 06:00 05/06/18 06:00 05/06/18 06:00 05/06/18 06:30 Laboratory Results - last 24 hr 05/06/18 05:15: Triglycerides 238 H, Cholesterol 205 H, LDL Cholesterol 125, VLDL Cholesterol 48 H, HDL Cholesterol 32, Cholesterol/HDL Ratio 6.4 H I & O for Last 24 hours: Intake & Output 05/03/18 05/04/18 05/05/18 05/06/18 11:59 11:59 11:59 11:59 Intake Total 840 / 840 840 / 840 Output Total 350 / 350 2100 / 2100 Balance 490 / 490 -1260 / -1260 Weight 142 lb 9 oz 140 lb 5 oz - Constitutional no acute distress - *Routine Respiratory Exam Present: CTA bilaterally - *Routine Cardiovascular Exam Present: RRR - *Routine Abdominal Exam Present: soft, normoactive bowel sounds. Absent: tenderness - *Routine Extremities Exam Absent: cyanosis, clubbing, edema Assessment and Plan (1) STEMI (ST elevation myocardial infarction) Current visit: Yes Status: Acute Category: Medical Code(s): I21.3 - ST elevation (STEMI) myocardial infarction of unspecified site (2) HTN (hypertension) Current visit: Yes Status: Chronic Category: Medical Code(s): I10 - Essential (primary) hypertension (3) URI (upper respiratory infection) Current visit: Yes Status: Acute Category: Medical Code(s): J06.9 - Acute upper respiratory infection, unspecified (4) Anxiety Current visit: Yes Status: Chronic Category: Medical Code(s): F41.9 - Anxiety disorder, unspecified (5) Nausea Current visit: Yes Status: Acute Category: Medical Code(s): R11.0 - Nausea (6) GERD (gastroesophageal reflux disease) Current visit: Yes Status: Acute Category: Medical Code(s): K21.9 - Gastro-esophageal reflux disease without esophagitis (7) Hypokalemia Current visit: Yes Status: Acute Category: Medical Code(s): E87.6 - Hypokalemia - Assessment and plan all Dx Assessment and Plan for all problems:: Chest x-ray from yesterday shows nothing acute. Cardiology has seen the patient today and would like to keep her overnight and possibly discharge tomorrow morning. We are still waiting on the echo report. <SashaLarry Alvarenga - Last Filed: 05/06/18 17:12> Exam Vital signs and Labs for Last 24 Hours: Temp Pulse Resp BP Pulse Ox 97.9 F 80 18 103/70 L 96 05/06/18 06:00 05/06/18 16:00 05/06/18 10:00 05/06/18 10:00 05/06/18 10:00 Laboratory Results - last 24 hr 05/06/18 05:15: Triglycerides 238 H, Cholesterol 205 H, LDL Cholesterol 125, VLDL Cholesterol 48 H, HDL Cholesterol 32, Cholesterol/HDL Ratio 6.4 H I & O for Last 24 hours: Intake & Output 05/04/18 05/05/18 05/06/18 05/07/18 11:59 11:59 11:59 11:59 Intake Total 840 / 840 1320 / 1320 Output Total 350 / 350 2100 / 2100 Balance 490 / 490 -780 / -780 Weight 142 lb 9 oz 140 lb 5 oz Assessment and Plan (1) STEMI (ST elevation myocardial infarction) Current visit: Yes Status: Acute Category: Medical Code(s): I21.3 - ST elevation (STEMI) myocardial infarction of unspecified site (2) HTN (hypertension) Current visit: Yes Status: Chronic Category: Medical Code(s): I10 - Essential (primary) hypertension (3) URI (upper respiratory infection) Current visit: Yes Status: Acute Category: Medical Code(s): J06.9 - Acute upper respiratory infection, unspecified (4) Anxiety Current visit: Yes Status: Chronic Category: Medical Code(s): F41.9 - Anxiety disorder, unspecified (5) Nausea Current visit: Yes Status: Acute Category: Medical Code(s): R11.0 - Nausea (6) GERD (gastroesophageal reflux disease) Current visit: Yes Status: Acute Category: Medical Code(s): K21.9 - Gastro-esophageal reflux disease without esophagitis (7) Hypokalemia Current visit: Yes Status: Acute Category: Medical Code(s): E87.6 - Hypokalemia - Assessment and plan all Dx Assessment and Plan for all problems:: Patient seen and examined this AM. Doing well. Awaiting further recommendations from cardiology regarding need for LifeVest.
--- NOTE | 2018-05-06 09:03 | Progress Note ---
Subjective Date: 05/06/18 Time: 09:00 Principal diagnosis: STEMI Interval history: 67 yo WF in bed in NAD. Breathing and feeling better today. Telemetry shows sinus with improved frequency of PVC's. CXR showed no acute changes. Echo pending. Exam Vital signs and Labs for Last 24 Hours: Temp Pulse Resp BP Pulse Ox 97.9 F 78 16 117/64 95 05/06/18 06:00 05/06/18 06:00 05/06/18 06:00 05/06/18 06:00 05/06/18 06:30 Laboratory Results - last 24 hr 05/06/18 05:15: Triglycerides 238 H, Cholesterol 205 H, LDL Cholesterol 125, VLDL Cholesterol 48 H, HDL Cholesterol 32, Cholesterol/HDL Ratio 6.4 H I & O for Last 24 hours: Intake & Output 05/03/18 05/04/18 05/05/18 05/06/18 11:59 11:59 11:59 11:59 Intake Total 840 / 840 1320 / 1320 Output Total 350 / 350 2100 / 2100 Balance 490 / 490 -780 / -780 Weight 142 lb 9 oz 140 lb 5 oz - *Routine Respiratory Exam Present: CTA bilaterally. Absent: accessory muscle use, rales, rhonchi, wheezes - *Routine Cardiovascular Exam Present: RRR. Absent: murmur, gallop, rubs - *Routine Extremities Exam Absent: edema, calf tenderness - *Routine Neurological Exam Present: alert, oriented X3, moving all extremities Progress Note: A&P (1) STEMI (ST elevation myocardial infarction) Status: Acute Current Visit: Yes (2) HTN (hypertension) Status: Chronic Current Visit: Yes (3) URI (upper respiratory infection) Status: Acute Current Visit: Yes (4) Anxiety Status: Chronic Current Visit: Yes (5) Nausea Status: Acute Current Visit: Yes (6) GERD (gastroesophageal reflux disease) Status: Acute Current Visit: Yes (7) Hypokalemia Status: Acute Current Visit: Yes Assessment and Plan for All Diagnoses:: Continue current treatment including ABEL and beta tesha for cardiomyopathy. Inferior STEMI s/p VICTORINO to RCA, on DAPT. Continue to monitor on telemetry. Await echo to decide if LifeVest needed.
--- NOTE | 2018-05-06 11:22 | Cardiology Report ---
PROCEDURE: 2-D M-mode and color Doppler study INDICATIONS FOR THE TEST: Chest pain+ COPD+ Heart Murmur Tobacco Smoking+ Palpitations Fatigue Syncope Edema Hypertension+Diabetes Mellitus Rheumatic Fever SOB+DENNISON Obesity Hyperlipidemia+ Family History HD Additional History + ALCOHOL USE, STENTS 05/04/18 PATIENT INFORMATION HEIGHT:65 WEIGHT:143 GENDER: Female B/P:138/75 2-D/M-MODE INTERPRETATION: 2-D MEASUREMENTS OBSERVED VALUES IN CMS Right Ventricular Dimension (RVDd) 1.8 Interventricular Septum (Thickness)(IVsd) 1.7 Left Ventricular Internal Dimensions(LVIDd) 3.9 Left Ventricular Posterior Wall (Thickness)(LVPWd) 1.0 Aortic Root 3.3 Aortic Cusp Separation 2.0 Left Atrial Dimensions (LAD) 4.4 2D 1. Left atrium is mildly enlarged, left ventricle is normal size, mild concentric left ventricular hypertrophy, reduced left ventricular systolic function, visually estimated ejection fraction 30%, there is marked hypokinesis involving the inferior, posterobasal and inferobasal wall. 2. The right atrium and right ventricle are normal size and contractility. 3. The aortic valve is minimally thickened and fibrosed. 4. The mitral and tricuspid valve leaflets are minimally thickened. 5. The pulmonic valve is poorly visualized. 6. No significant pericardial effusion noted. DOPPLER INTERROGATION: Doppler interrogation of the aortic, mitral and tricuspid valvular presence of mild mitral and tricuspid regurgitation, tricuspid regurgitation jet velocity is inadequate for calculation of the right ventricular systolic pressure, diastolic parameters are inconclusive. CONCLUSION: 1. Mildly enlarged left atrium, normal left ventricular size, mild concentric left ventricular hypertrophy, reduced left ventricular systolic function, visually estimated ejection fraction 30% with multiple segmental wall motion abnormality described above, diastolic parameters are inconclusive. 2. Mild mitral and tricuspid regurgitation 3. No significant pericardial effusion noted.
--- NOTE | 2018-05-07 08:06 | Progress Note ---
<Ama Recinos - Last Filed: 05/07/18 08:03> Internal Medicine - PN: Subj *Date: 05/07/18 *Time: 08:04 Interval history: The patient states she feels great this morning. Has been up and moving around the room. Denies any pain or shortness of breath. Slept well last night and ate well this morning. Anxious to go home today. Exam Vital signs and Labs for Last 24 Hours: Temp Pulse Resp BP Pulse Ox 98.0 F 72 20 98/56 L 96 05/07/18 07:42 05/07/18 06:00 05/07/18 06:00 05/07/18 06:00 05/07/18 06:50 I & O for Last 24 hours: Intake & Output 05/04/18 05/05/18 05/06/18 05/07/18 11:59 11:59 11:59 11:59 Intake Total 840 / 840 1320 / 1320 745 / 745 Output Total 350 / 350 2100 / 2100 1450 / 1450 Balance 490 / 490 -780 / -780 -705 / -705 Weight 142 lb 9 oz 140 lb 5 oz 140 lb 2 oz Radiology Reports for the Last 24 Hours: Echo 1. Mildly enlarged left atrium, normal left ventricular size, mild concentric left ventricular hypertrophy, reduced left ventricular systolic function, visually estimated ejection fraction 30% with multiple segmental wall motion abnormality described above, diastolic parameters are inconclusive. 2. Mild mitral and tricuspid regurgitation 3. No significant pericardial effusion noted. - Constitutional no acute distress - *Routine Respiratory Exam Present: CTA bilaterally - *Routine Cardiovascular Exam Present: RRR - *Routine Abdominal Exam Present: soft, normoactive bowel sounds. Absent: tenderness - *Routine Extremities Exam Absent: cyanosis, clubbing, edema Assessment and Plan (1) STEMI (ST elevation myocardial infarction) Status: Acute Category: Medical Code(s): I21.3 - ST elevation (STEMI) myocardial infarction of unspecified site (2) HTN (hypertension) Status: Chronic Category: Medical Code(s): I10 - Essential (primary) hypertension (3) URI (upper respiratory infection) Status: Acute Category: Medical Code(s): J06.9 - Acute upper respiratory infection, unspecified (4) Anxiety Status: Chronic Category: Medical Code(s): F41.9 - Anxiety disorder, unspecified (5) Nausea Status: Acute Category: Medical Code(s): R11.0 - Nausea (6) GERD (gastroesophageal reflux disease) Status: Acute Category: Medical Code(s): K21.9 - Gastro-esophageal reflux disease without esophagitis (7) Hypokalemia Status: Acute Category: Medical Code(s): E87.6 - Hypokalemia - Assessment and plan all Dx Assessment and Plan for all problems:: Cardiology to see patient today. Discharge as per cardiology. <Larry Baez - Last Filed: 05/10/18 08:28> Exam Vital signs and Labs for Last 24 Hours: Temp Pulse Resp BP Pulse Ox 98.0 F 77 15 97/51 L 94 L 05/07/18 07:42 05/07/18 08:00 05/07/18 08:00 05/07/18 08:00 05/07/18 08:00 I & O for Last 24 hours: Intake & Output 05/07/18 05/08/18 05/09/18 05/10/18 11:59 11:59 11:59 11:59 Intake Total 745 / 745 Output Total 1450 / 1450 Balance -705 / -705 Weight 140 lb 2 oz Assessment and Plan (1) STEMI (ST elevation myocardial infarction) Status: Acute Category: Medical Code(s): I21.3 - ST elevation (STEMI) myocardial infarction of unspecified site (2) HTN (hypertension) Status: Chronic Category: Medical Code(s): I10 - Essential (primary) hypertension (3) URI (upper respiratory infection) Status: Acute Category: Medical Code(s): J06.9 - Acute upper respiratory infection, unspecified (4) Anxiety Status: Chronic Category: Medical Code(s): F41.9 - Anxiety disorder, unspecified (5) Nausea Status: Acute Category: Medical Code(s): R11.0 - Nausea (6) GERD (gastroesophageal reflux disease) Status: Acute Category: Medical Code(s): K21.9 - Gastro-esophageal reflux disease without esophagitis (7) Hypokalemia Status: Acute Category: Medical Code(s): E87.6 - Hypokalemia - Assessment and plan all Dx Assessment and Plan for all problems:: Patient seen and examined. SHe is ready for discharge pending repeat Echo per cardiology to determine need for LifeVest. She will f/u with Dr. Cates and Dr. Robins as outpt.
--- NOTE | 2018-05-07 09:40 | Progress Note ---
Subjective Date: 05/07/18 Time: 09:37 Principal diagnosis: STEMI Interval history: 67-year-old white female in bed in no acute distress. Denies any chest pain. States she is feeling much better and wants to go home. Telemetry reveals occasional PVCs continuing but it is steadily improving. Discussed limited echo today to reassess left ventricular ejection fraction and possible need for LifeVest therapy. Exam Vital signs and Labs for Last 24 Hours: Temp Pulse Resp BP Pulse Ox 98.0 F 77 15 97/51 L 94 L 05/07/18 07:42 05/07/18 08:00 05/07/18 08:00 05/07/18 08:00 05/07/18 08:00 I & O for Last 24 hours: Intake & Output 05/04/18 05/05/18 05/06/18 05/07/18 11:59 11:59 11:59 11:59 Intake Total 840 / 840 1320 / 1320 745 / 745 Output Total 350 / 350 2100 / 2100 1450 / 1450 Balance 490 / 490 -780 / -780 -705 / -705 Weight 142 lb 9 oz 140 lb 5 oz 140 lb 2 oz - *Routine Respiratory Exam Present: CTA bilaterally. Absent: accessory muscle use, rales, rhonchi, wheezes - *Routine Cardiovascular Exam Present: RRR. Absent: murmur, gallop, rubs Progress Note: A&P (1) STEMI (ST elevation myocardial infarction) Status: Acute Current Visit: Yes (2) HTN (hypertension) Status: Chronic Current Visit: Yes (3) URI (upper respiratory infection) Status: Acute Current Visit: Yes (4) Anxiety Status: Chronic Current Visit: Yes (5) Nausea Status: Acute Current Visit: Yes (6) GERD (gastroesophageal reflux disease) Status: Acute Current Visit: Yes (7) Hypokalemia Status: Acute Current Visit: Yes Assessment and Plan for All Diagnoses:: Limited echo this a.m. to reassess left ventricular ejection fraction. Recommendation for a life vest pending echo results today. If ejection fraction greater than 35-40% then okay for discharge from cardiology standpoint without need for LifeVest. Inferior ST elevation [place] status post coronary artery stenting and cardioversion of ventricular fibrillation during procedure. Continue dual antiplatelet therapy in the form of aspirin and Brilinta. Cardiomyopathy, continue metoprolol 12.5 mg twice daily and either lisinopril 2.5 mg BID or equivalent losartan dose of 25 or 50 mg daily as blood pressure tolerates. Hyperlipidemia, continue statin therapy. Follow-up with cardiology in 1 week.
--- NOTE | 2018-05-07 13:10 | Cardiology Report ---
PROCEDURE: INDICATIONS FOR THE TEST: Chest pain COPD Heart Murmur Tobacco Smoking Palpitations Fatigue Syncope Edema Hypertension Diabetes Mellitus Rheumatic Fever SOB DENNISON Obesity Hyperlipidemia Family History HD Additional History RE CHECK EF LIMITED EXAM PATIENT INFORMATION HEIGHT: 65 WEIGHT:140 GENDER: Female B/P: 2-D/M-MODE INTERPRETATION: 2-D MEASUREMENTS OBSERVED VALUES IN CMS Right Ventricular Dimension (RVDd) Interventricular Septum (Thickness)(IVsd) Left Ventricular Internal Dimensions(LVIDd) Left Ventricular Posterior Wall (Thickness)(LVPWd) Aortic Root Aortic Cusp Separation Left Atrial Dimensions (LAD) 2D 1. Left atrium is mildly enlarged, left ventricle is normal size, mild concentric left ventricular hypertrophy, visually estimated ejection fraction approximately 25-30%, there is marked hypo to akinesis involving the inferior, inferobasal, posterobasal and inferolateral wall. 2. The right atrium and right ventricle are relatively normal size and function. 3. The aortic valve is minimally thickened and fibrosed. 4. The mitral and tricuspid valve are minimally thickened. There is mild mitral calcification. 5. The pulmonic valve is poorly visualized. 6. No significant pericardial effusion noted. DOPPLER INTERROGATION: Doppler interrogation of the aortic, mitral and tricuspid valvular presence of mild mitral and tricuspid regurgitation, calculated right ventricular systolic pressure is 36 mmHg consistent with the mild pulmonary hypertension, grade 1 diastolic dysfunction seen with tissue Doppler evidence of raised left atrial pressure. CONCLUSION: 1. Mildly enlarged left atrium, normal left ventricular size, visually estimated ejection fraction approximately 25-30% with segmental wall motion abnormality described above, grade 1 diastolic dysfunction seen with tissue Doppler evidence of raised left atrial pressure. 2. Mild mitral and tricuspid regurgitation, calculated right ventricular systolic pressure is 36 mmHg consistent with mild pulmonary hypertension. 3. No significant pericardial effusion noted.
--- NOTE | 2018-05-07 14:52 | Discharge Summary ---
General - General Admission date:: 05/04/18 <Larry Baez - 05/10/18 08:18> 05/04/18 <Ama Recinos - 05/07/18 14:52> Discharge date: 05/07/18 <Ama Recinos - 05/07/18 14:52> HPI HPI: Ms. Pickard is a 67-year-old female with a history of hypertension anxiety depression, and some alcohol abuse and tobacco abuse who presented to [facility] emergency room with severe sharp left anterior chest pain associated with nausea and vomiting. Patient was seen in the office of [facility] early in the afternoon and was felt to have a bronchitis. At at time she denied any chest pain and shortness of breath. She noted that she had not felt well for the past 3 weeks; she had a flu shot 2 weeks ago and felt that she was worse after this. She had a nonproductive dry cough; was short of breath with exertion; she had some wheezing, chest congestion, headache, body aches, and dizziness. She did have some chest discomfort with deep inspiration. After leaving the office of [facility] patient states she went to [facility] at which time she did some grocery shopping and obtained her medicine. While waiting for her medicine she became nauseated. When traveling home her had to stop at which time she vomited. She is did start to have some chest pain at some point in time. It became excruciating by the time she got to the emergency room at [facility]. Patient was evaluated in the emergency room with noted EKG changes. Dr. Robins was notified and she was transferred to the cardiac Customer Service [facility] for immediate cardiac cath. Troponin I was initially mildly elevated. Cardiac cath impression and plan are as follows: IMPRESSION: 1. Acute myocardial infarction involving a proximal massively large dominant right coronary artery which functions as both the dominant right coronary artery and the nondominant circumflex artery 2. Successful thrombectomy followed by drug-eluting stenting to the proximal mid and distal dominant right coronary artery 3. [place] ejection fraction with mild regional wall motion abnormality 4. Mildly elevated LVEDP although probably normal for the circumstances 5. Moderate disease in the mid LAD PLAN: 1. Brilinta and aspirin for one year 2. Absolute tobacco cessation and avoidance 3. LDL less than 55 4. Supportive care for the next 48 hours 5. Carvedilol plus lisinopril once patient is stable with plans to uptitrate At the time of this exam patient is sitting up in bed eating a sandwich. She still has some left anterior chest pain but nothing like it was prior to the cath. Has shortness of breath and nausea. <Ama Recinos - 05/07/18 14:52> Hospital Course Hospital Course: The patient had an inferior ST elevation [place] and coronary artery stenting as well as cardioversion of ventricular fibrillation during the procedure. The patient did have some midsternalepigastric discomfort after the procedure. Mylanta really did not help and she became nauseated. She had some wheezing and was started on an albuterol inhaler for her wheezing, Protonix for her GERD and epigastric pain, potassium for hypokalemia, Zofran for nausea, and a CXR was ordered. It showed nothing acute. The patient was started on DAPT with ASA and brilinta, a low dose beta tesha and an ABEL by cardiology due to the STEMI. An echo was ordered and smoking cessation was encouraged. The patient's echo showed an EF of 30%. She was kept for monitoring for 48 hrs after cath/stenting. Her telemetry showed sinus rhythm with improved frequency of PVC's. A limited echo was ordered on the day of discharge to reassess left ventricular ejection fraction and the possible need for LifeVest therapy. It also showed an EF of 30%. She was stable to discharged home on metoprolol 12.5 mg twice daily and lisinopril 2.5 mg BID. She will need to continue statin therapy. She will f/u with cardiology in 1 week and they will contact her about possible lifevest placement. <Ama Recinos - 05/07/18 14:52> Objective Vital signs: Temp Pulse Resp BP Pulse Ox 98.0 F 77 15 97/51 L 94 L 05/07/18 07:42 05/07/18 08:00 05/07/18 08:00 05/07/18 08:00 05/07/18 08:00 <Larry Baez - 05/10/18 08:18> Temp Pulse Resp BP Pulse Ox 98.0 F 77 15 97/51 L 94 L 05/07/18 07:42 05/07/18 08:00 05/07/18 08:00 05/07/18 08:00 05/07/18 08:00 <Ama Recinos - 05/07/18 14:52> Narrative: - Constitutional no acute distress - *Routine HEENT Exam Head: Present: normocephalic, atraumatic Eye: Present: PERRL. Absent: conjunctival icterus, scleral injection ENT: Present: mucous membranes moist, oropharynx clear - *Routine Respiratory Exam Present: wheezes - *Routine Cardiovascular Exam Present: RRR Comments: Monitor showing sinus rhythm with ST elevation - *Routine Abdominal Exam Present: soft, normoactive bowel sounds. Absent: tenderness - *Routine Extremities Exam Absent: edema, tenderness - *Routine Neurological Exam Present: alert, oriented X3 <Ama Recinos - 05/07/18 14:52> DS: Diagnosis - Discharge Diagnosis (1) STEMI (ST elevation myocardial infarction) Status: Acute (2) HTN (hypertension) Status: Chronic (3) URI (upper respiratory infection) Status: Acute (4) Anxiety Status: Chronic (5) Nausea Status: Acute (6) GERD (gastroesophageal reflux disease) Status: Acute (7) Hypokalemia Status: Acute <Ama Recinos - 05/07/18 14:38> (1) STEMI (ST elevation myocardial infarction) Status: Acute (2) HTN (hypertension) Status: Chronic (3) URI (upper respiratory infection) Status: Acute (4) Anxiety Status: Chronic (5) Nausea Status: Acute (6) GERD (gastroesophageal reflux disease) Status: Acute (7) Hypokalemia Status: Acute <Larry Baez - 05/10/18 08:18> Discharge Plan - Patient Discharge Instructions ACTIVITY: Limited activity <Ama Recinos - 05/07/18 14:52> DIET: low fat, low cholesterol <Ama Recinos - 05/07/18 14:52> Patient Instructions: Heart-Healthy Diet, DI for Cardiac Catheterization, DI for Surgical Site Infection <Larry Baez - 05/10/18 08:18> Forms: <Larry Baez - 05/10/18 08:18> - Follow up Plan Follow up with: Stephon Cates MD [Primary Care Provider] - 1 week Estuardo Robins MD [Staff Physician] - 05/13/18 <Larry Baez Lyle - 05/10/18 08:18> Disposition: Home, Self-Care <SashaLarry mendoza - 05/10/18 08:18> Home Medications: Home Medications Medication Instructions Recorded Confirmed Type RX: Alendronate Sodium 70 mg PO WEEKLY 05/04/18 05/05/18 History RX: Atorvastatin Calcium 40 mg PO HS 05/04/18 05/04/18 History [Atorvastatin 40mg Tab] RX: Omeprazole [Omeprazole 40mg 40 mg PO DAILY 05/04/18 05/04/18 History Capsule] RX: Potassium Chloride [Klor-Con 10 meq PO DAILY 05/04/18 05/04/18 History 10mEq tab] <SashaLarry mendoza - 05/10/18 08:18> Prescriptions/Medication Reconciliation: New RX: Atorvastatin Calcium [Lipitor 40mg Tablet] 40 mg PO HS tablet RX: Lisinopril [Zestril 2.5mg Tablet] 2.5 mg PO BID #60 tab RX: Metoprolol Tartrate [Lopressor 25mg tablet] 12.5 mg PO BID #60 tab RX: Nitroglycerin [Nitrostat 0.4mg SL Tablet] 0.4 mg SL Q5MINP PRN #25 tab.subl PRN Reason: Chest Pain RX: Ticagrelor [Brilinta 90mg Tablet] 90 mg PO BID #60 tab RX: Aspirin [Aspirin 81mg EC Tab] 81 mg PO DAILY tablet.dr Drummond RX: Potassium Chloride [Klor-Con 10mEq tab] 10 meq PO DAILY RX: Atorvastatin Calcium [Atorvastatin 40mg Tab] 40 mg PO HS RX: Alendronate Sodium 70 mg PO WEEKLY RX: Omeprazole [Omeprazole 40mg Capsule] 40 mg PO DAILY Discontinued Losartan/Hydrochlorothiazide [Losartan-Hctz 100-25 mg Tab] 1 tab PO DAILY <Larry Baez - 05/10/18 08:18> - Additional Information Additional Information: Concur with above assessment and plan for discharge <Larry Baez - 05/10/18 08:18>
== END 2018-05-07 11:40 | disposition home or self-care (01) ==
LOC: ER 16:09 → CATHLAB 16:33 → 2ND 17:43
PROVIDERS: ADMIT Family Medicine; ATTEND Family Medicine

== ENCOUNTER 2018-05-17 12:53 | Outpatient (RCR) | payer MEDICARE, SELFPAY | END 2018-07-29 16:40 | disposition home or self-care (01) | LOC: PT 12:53 | PROVIDERS: Visit Provider Internal Medicine | DX: Z95.5 Presence of coronary angioplasty implant and graft (principal) | CPT/HCPCS: 93798 ==

== ENCOUNTER → 2018-05-25 10:26 | Outpatient (CLI) | payer MEDICARE, SELFPAY ==
--- NOTE | 2018-05-25 10:29 | CA_ITS ---
PROCEDURE: Limited echocardiogram INDICATIONS FOR THE TEST: Chest pain COPD+ Heart Murmur Tobacco Smoking+ Palpitations Fatigue Syncope Edema Hypertension+Diabetes Mellitus Rheumatic Fever SOB DENNISON+Obesity Hyperlipidemia Family History HD Additional History cad, cm, recheck ef, ef 25-30% on 05/04/18 PATIENT INFORMATION HEIGHT: 65 WEIGHT:143 GENDER: Female B/P:138/75 2-D/M-MODE INTERPRETATION: 2-D MEASUREMENTS OBSERVED VALUES IN CMS Right Ventricular Dimension (RVDd) 1.3 Interventricular Septum (Thickness)(IVsd) 0.9 Left Ventricular Internal Dimensions(LVIDd) 6.5 Left Ventricular Posterior Wall (Thickness)(LVPWd) 0.8 Aortic Root Aortic Cusp Separation Left Atrial Dimensions (LAD) 2D 1. Left atrium is mildly enlarged, left ventricle is normal size, mild concentric left ventricular hypertrophy, visually estimated ejection fraction 40%, there is moderate hypokinesis involving the inferior inferobasal and posterobasal wall. 2. The right atrium and right ventricle are normal size and contractility. 3. The aortic valve is minimally thickened and fibrosed. 4. The mitral and tricuspid valve leaflets are minimally thickened 5. The pulmonic valve is poorly visualized. 6. No significant pericardial effusion noted. DOPPLER INTERROGATION: No Doppler performed CONCLUSION: 1. Limited study 2. Mildly enlarged left atrium, normal left ventricular size, visually estimated ejection would percent with segmental wall motion abnormality described above. 3. No significant pericardial effusion.
== END ==
PROVIDERS: PCP Family Medicine; Visit Provider Internal Medicine
DX: F41.9 Anxiety disorder, unspecified (principal); I10 Essential (primary) hypertension; I21.3 ST elevation (STEMI) myocardial infarction of unspecified site; I25.10 Atherosclerotic heart disease of native coronary artery without angina pectoris; I25.5 Ischemic cardiomyopathy; K21.9 Gastro-esophageal reflux disease without esophagitis; R11.0 Nausea
CPT/HCPCS: 93308

== ENCOUNTER → 2018-06-29 13:20 | Outpatient (CLI) | payer MEDICARE, SELFPAY ==
[2018-06-29 14:42] LABS: Blood Urea Nitrogen 10 mg/dL (7-18); Calcium 9.4 mg/dL (8.5-10.1); Carbon Dioxide 29 mmol/L (21.0-32.0); Chloride 103 mmol/L (98-107); Creatinine,Serum 0.83 mg/dL (0.55-1.02); Estimated Glomerular Filt Rate 68 ml/min (>60); GFR (African American) 82 ML/MIN (>60); Glucose 105 mg/dL (74-106); Magnesium 1.8 mg/dL (1.4-2.2); Sodium 141 mmol/L (136-145)
== END ==
PROVIDERS: Visit Provider Physician Assistant
DX: F17.200 Nicotine dependence, unspecified, uncomplicated (principal); F41.9 Anxiety disorder, unspecified; I10 Essential (primary) hypertension; I21.3 ST elevation (STEMI) myocardial infarction of unspecified site; I25.10 Atherosclerotic heart disease of native coronary artery without angina pectoris; I25.5 Ischemic cardiomyopathy; K21.9 Gastro-esophageal reflux disease without esophagitis; R06.09 Other forms of dyspnea
CPT/HCPCS: 36415; 80048; 83735

== ENCOUNTER → 2018-12-17 13:57 | Outpatient (CLI) | payer MEDICARE, SELFPAY ==
--- NOTE | 2018-12-17 14:02 | XR_ITS ---
XR DEXA axial skeleton HISTORY: ITS.REASON: OSTEOPOROSIS ORDERING PHYSICIAN: Stephon Cates MD PATIENT AGE: 68 years COMPARISON: 12/09/2016 FINDINGS: The BMD measured at the Total Left femoral neck is 0.571 g/cm squared with a T score of -3.5. This is considered Osteoporotic according to the World Health Organization criteria. Fracture risk is High. Treatment is advised. The density has decreased by 2.5%. L1 L4 density has a T score of -2.5 is not significant change. IMPRESSION: Osteoporosis with high fracture risk. Treatment is advised. Suggest follow-up exam December 2019
== END ==
PROVIDERS: PCP Family Medicine; Visit Provider Family Medicine
DX: M81.0 Age-related osteoporosis without current pathological fracture (principal); Z87.891 Personal history of nicotine dependence
CPT/HCPCS: 77080

== ENCOUNTER → 2018-12-23 08:11 | Outpatient (CLI) | payer MEDICARE, SELFPAY ==
--- NOTE | 2018-12-23 08:12 | CT_ITS ---
CT lung screening EXAM: CT LUNG LOW DOSE WO CONTRAST HISTORY: 40 pack-year smoking history, asymptomatic for lung cancer ITS.REASON: HX TOBACCO USE ORDERING PHYSICIAN: Stephon Cates MD PATIENT AGE: 68 years COMPARISON: 12/12/2016 TECHNIQUE: The exam was performed on a GE Light Speed [address] scanner using 2.90 mGy CTDI. A low dose helical CT CHEST was performed on a multi-detector scanner. All CT scans at the facility use one or more dose reduction, viz: automated exposure control, ma/kV adjustment per patient size (including targeted exams where dose is matched to indication, i.e. head), or iterative reconstruction technique. The LDCT was performed in a facility that meets the criteria for the screening program. Data regarding this exam was submitted to ACR which is an approved registry. The order for this exam indicates that it came as a result of a lung cancer screening counseling shard decision-making visit that included all the elements required of such a visit including smoking cessation. The radiologist interpreting this exam meets the CMS criteria for the LDCT lung cancer screening program. The exam is reported using the Lung-RADS classification scale and reported to the ACR registry. NOTE: This study was performed for the specific purposes of lung cancer screening and is not an alternative to diagnostic chest CT. RADIATION DOSE: CTDI vol(CT dose Index-volume) = 2.90mG DLP (Dose Length Product) = 97.68 mGcm FINDINGS: COPD with centrilobular emphysema. Coronary artery calcifications. Scattered small nodes in the mediastinum which are stable. There are scattered parenchymal opacities in the apices which are felt to be stable considering slight difference in positioning. No suspicious pulmonary nodules. Left adrenal adenoma once again noted at 2 cm IMPRESSION: 1. Lung RADS Category: 2, benign 2. Other findings: COPD/intralobular emphysema with coronary artery calcifications RECOMMENDATIONS: 12 month LDCT follow-up
== END ==
PROVIDERS: PCP Family Medicine; Visit Provider Family Medicine
DX: Z12.2 Encounter for screening for malignant neoplasm of respiratory organs (principal); Z87.891 Personal history of nicotine dependence

== ENCOUNTER → 2020-01-11 12:42 | Outpatient (CLI) | payer MEDICARE, SELFPAY ==
--- NOTE | 2020-01-11 12:45 | MM_ITS ---
PROCEDURE: MM DIG SCREENING MAMM BI W/CAD Digital Breast Tomosynthesis Included CLINICAL INDICATION: SCREENING There is a history of breast cancer patient's mother and maternal great grandmother. COMPARISON: DMSB DIG MAMM-SCREEN DOMINIK W/CAD from 12/09/2016 [id number] DIG MAMM-DX UNI A/VWS-LT W/CAD from 12/19/2016 [facility] MM Dig screening mamm BI w/CAD from 01/29/2018 TECHNIQUE: Standard CC and MLO images and 3D Tomosynthesis was obtained. R2 CAD reviewed. FINDINGS: Scattered fibroglandular densities are seen throughout both breasts. There are couple of benign-appearing microcalcifications left breast. There is a mole marker near the axillary tail left breast. There is a stable small oval nodular density outer quadrant right breast near the nipple. There is no suspicious lesion in either breast and no suspicious microcalcifications. IMPRESSION: Fibrofatty parenchyma with no suspicious lesions seen BI-RAD Category: 2 Benign Finding(s) FOLLOW-UP: 1YR 1 Year Follow-up (A letter has been sent to the patient regarding results of the study.) Dictated by: Dr. Ld Burch MD 01/13/2020 11:[address] Ld Burch MD in [place] 01/13/2020 11:16
--- NOTE | 2020-01-11 12:58 | XR_ITS ---
PROCEDURE: XR LUMBAR SPINE MIN 4V CLINICAL INDICATION: LOW BACK PAIN COMPARISON: LS5 LUMBAR SPINE 5 VIEWS from 11/26/2015 FINDINGS: Lumbar scoliosis concave to the right is noted. There is no spondylolysis or spondylolisthesis, fracture or dislocation. Joint spaces are intact. There are dense vascular calcifications. SI joints are intact IMPRESSION: No acute findings. Mild lumbar scoliosis, no change 11/26/2015 Dictated by: Sage Zaragoza 01/11/2020 13:28 Electronically signed by Sage Zaragoza in [place] 01/11/2020 13:28
== END ==
PROVIDERS: PCP Family Medicine; Visit Provider Family Medicine
DX: Z12.31 Encounter for screening mammogram for malignant neoplasm of breast (principal); N60.19 Diffuse cystic mastopathy of unspecified breast; M54.5 Low back pain
CPT/HCPCS: 72110; 77063; 77067

== ENCOUNTER → 2020-10-12 14:02 | Outpatient (CLI) | payer MEDICARE, SELFPAY ==
--- NOTE | 2020-10-12 14:07 | CT_ITS ---
PROCEDURE: CT LUNG SCREENING CLINICAL INDICATION: HX OF TOBACCO USE Current smoker Smoking 2-3 cigarettes per day 40 pack year smoking history COMPARISON: CT LDCTLCAS LDCT FOR LUNG CA SCREEN from 12/12/[address] lung screening from 12/23/2018 TECHNIQUE: The exam was performed on a [employer] Speed [address] scanner using 2.90 mGy CTDI. A low dose helical CT CHEST was performed on a multi-detector scanner. All CT scans at the facility use one or more dose reduction, viz: automated exposure control, ma/kV adjustment per patient size (including targeted exams where dose is matched to indication, i.e. head), or iterative reconstruction technique. The LDCT was performed in a facility that meets the criteria for the screening program. Data regarding this exam was submitted to ACR which is an approved registry. The order for this exam indicates that it came as a result of a lung cancer screening counseling shard decision-making visit that included all the elements required of such a visit including smoking cessation. The radiologist interpreting this exam meets the CMS criteria for the LDCT lung cancer screening program. The exam is reported using the Lung-RADS classification scale and reported to the ACR registry. NOTE: This study was performed for the specific purposes of lung cancer screening and is not an alternative to diagnostic chest CT. RADIATION DOSE: CTDI vol(CT dose Index-volume) = 2.90mG DLP (Dose Length Product) = 101.34 mGcm FINDINGS: COPD changes with scattered areas of scarring. Fibronodular changes are present in the right apex not significantly changed. Stable parenchymal nodular opacity in the right lower lobe laterally. Nodular opacity noted in the azygo esophageal recess in the right lower lobe measuring 9 mm possibly due to an area of parenchymal scarring but has developed in the interval. OTHER FINDINGS: Coronary artery calcification noted. 2.5 cm left adrenal nodule measuring near water density similar to the previous exam consistent with an adenoma IMPRESSION: Lung-RADS Category 4A Suspicious New nodular opacity in the right lower lobe. Possibly due to an area of scarring. Follow-up: [address] Chest without and with contrast. Dictated by: Evin Cole MD 10/14/2020 16:23 Evin Cole MD in [place] 10/14/2020 16:23
--- NOTE | 2020-10-12 14:08 | XR_ITS ---
PROCEDURE: XR DEXA AXIAL SKELETON CLINICAL HISTORY: OSTEOPOROSIS COMPARISON: CR BONE3 BONE DENSITOMETRY(HIP:LT SPINE from 12/09/2016 FINDINGS: The right hip BMD is 0.486 with a T-score of -3.3. The left hip BMD is 0.569 with a T-score of -3.1. The lumbar spine BMD is 0.747 with a T-score of -2.7. Previously the lowest bone density was in the left femoral neck with a T-score -3.4 IMPRESSION: This patient is considered osteoporotic according to the World Health Organization criteria. Fracture risk is high. Treatment is advised. Based on these results a follow-up exam is recommended in 1 year. Dictated by: Evin Cole MD 10/13/2020 03:45 Evin Cole MD in [place] 10/13/2020 03:45
== END ==
PROVIDERS: PCP Family Medicine; Visit Provider Family Medicine
DX: Z87.891 Personal history of nicotine dependence (principal); Z12.2 Encounter for screening for malignant neoplasm of respiratory organs; M81.0 Age-related osteoporosis without current pathological fracture
CPT/HCPCS: 71271; 77080

== ENCOUNTER → 2021-01-14 12:39 | Outpatient (CLI) | payer MEDICARE, SELFPAY ==
--- NOTE | 2021-01-14 | CA_ITS ---
APPROVED REPORT Taxicab Coordinator: TEE Laterality: Bilateral Study Quality: Excellent Risk Factors Hypertension: Hyperlipidemia CAD, Smoking Cardiac Arrythmia noted Doppler Spectral Velocity Analysis ECA (R) 131.90/13.70 cm/s ECA (L) 105.50/10.50 cm/s dICA (R) 96.00/26.60 cm/s dICA (L) 107.00/32.90 cm/s Kishan (R) 93.40/26.60 cm/s Kishan (L) 103.30/28.40 cm/s pICA (R) 105.40/28.30 cm/s pICA (L) 90.50/32.90 cm/s dCCA (R) 69.60/16.50 cm/s dCCA (L) 62.30/16.10 cm/s pCCA (R) 90.50/17.20 cm/s pCCA (L) 75.60/17.20 cm/s Vert (R) 64.30/17.10 cm/s Vert (L) 79.30/18.00 cm/s ICA/CCA 1.50 ICA/CCA 1.70 Findings Duplex evaluation demonstrates stenosis of the right proximal internal carotid artery <20%. Duplex evaluation demonstrates stenosis of the left proximal internal carotid artery <20%. Duplex evaluation demonstrates antegrade flow of the bilateral Vertebral Arteries. Conclusion Duplex evaluation demonstrates stenosis of the right proximal internal carotid artery <20%. Duplex evaluation demonstrates stenosis of the left proximal internal carotid artery <20%. Duplex evaluation demonstrates antegrade flow of the bilateral Vertebral Arteries. Electronically signed by : Evin Cole MD 01/14/2021 17:09:41
--- NOTE | 2021-01-14 12:43 | MM_ITS ---
PROCEDURE INFORMATION: Exam: MG Screening 3D Mammography Exam date and time: 01/14/2021 12:43 PM Age: 70 years old Clinical indication: Encounter for screening mammogram for malignant neoplasm of breast TECHNIQUE: Imaging protocol: Screening tomosynthesis and 2D mammography including computer-aided detection (CAD) when performed. COMPARISON: 1. MG MM DIG SCREENING MAMM BI W/CAD 01/11/2020 1:07 PM 2. MG SCBI MM Dig screening mamm BI w/CAD 01/29/2018 10:39 AM FINDINGS: MAMMOGRAPHY: Breast composition: The breast tissue is composed of scattered areas of fibroglandular density. Mass: None. Architectural distortion: None. Calcifications: No suspicious calcifications. Asymmetric density: None. Skin thickening: None. Axillary adenopathy: None. IMPRESSION: No mammographic evidence of malignancy. Annual screening is recommended unless otherwise clinically indicated. ASSESSMENT: BI-RADS Category 1: Negative
== END ==
PROVIDERS: PCP Family Medicine; Visit Provider Family Medicine
DX: Z12.31 Encounter for screening mammogram for malignant neoplasm of breast (principal); I65.23 Occlusion and stenosis of bilateral carotid arteries
CPT/HCPCS: 77063; 77067; 93880

== ENCOUNTER 2022-04-09 07:44 | Outpatient (CLI) | payer MEDICARE, SELFPAY ==
[2022-04-09 08:19] LABS: Blood Urea Nitrogen 12 mg/dl (7-17); Estimated Glomerular Filt Rate 54 ml/min (>60); GFR (African American) 66 ML/MIN (>60)
--- NOTE | 2022-04-09 08:30 | CT_ITS ---
FINAL REPORT CLINICAL HISTORY: ABN CT CHEST, F/U COMPARISON: October 12, 2020 FINDINGS: Before and after the administration of intravenous contrast, axial images through the chest were performed by computed tomography. This study was performed with techniques to keep radiation doses as low as reasonably achievable, (ALARA). Individualized dose reduction techniques using automated exposure control or adjustment of mA and/or kV according to the patient's size were employed. There is no axillary adenopathy. There is no hilar or mediastinal adenopathy. There is dense calcification in the aortic arch and coronary arteries. The heart size is normal. There is no pericardial or pleural effusion. Limited images of the upper abdomen demonstrate a stable 2.2 cm nodule in the left adrenal gland that demonstrates 5 Hounsfield units consistent with an adenoma. There is mild biapical pleural and parenchymal scarring. The previous density in the azyagoesophageal recess has resolved. However there is a new density or superior to this in the azyagoesophageal recess measuring 9 mm as seen on image 75 of series 4. This is favored to be inflammatory. There is a small, 7 mm, irregular noncalcified density in the periphery of the right lower lobe that is also stable. IMPRESSION: Stable left adrenal adenoma. Stable density in the right lung base. Interval resolution of previous azyagoesophageal nodule. New density in the azyagoesophageal more superiorly is favored to be inflammatory. Per Fleischner criteria recommend follow-up in 3 months. Reviewed, Interpreted and Dictated by Jace Menezes MD Transcribed by Norris Clemente Authenticated and [facility]
[2022-04-09 10:15] VITALS: BP 158/68; PULSE 55; RESP 18; TEMP 36.1; O2SAT 98
== END 2022-04-09 10:15 | disposition home or self-care (01) ==
LOC: INF 07:46
PROVIDERS: PCP Family Medicine; Visit Provider Family Medicine
DX: R93.89 Abnormal findings on diagnostic imaging of other specified body structures (principal); J43.2 Centrilobular emphysema
CPT/HCPCS: 36415; 71270; 82565; 84520; 96372; J0897; Q9967

== ENCOUNTER → 2022-04-15 08:53 | Outpatient (CLI) | payer MEDICARE, SELFPAY ==
--- NOTE | 2022-04-15 09:02 | XR_ITS ---
FINAL REPORT TECHNIQUE: Bone densitometry calculations of the lumbar spine and left hip were obtained. CLINICAL HISTORY: post menopausal COMPARISON: October 12, 2020 FINDINGS: DEXA BONE DENSITY AXIAL SKELETON Using L1-4, the bone mineral density of the spine is 0.748 g/cm2, corresponding to T-score of -2.7. Previously measured 0.747 g/cm2, corresponding to T-score of -2.7. Using the right hip, the bone mineral density of the femoral neck is 0.485 g/cm2, corresponding to a T-score of -3.3. Previously measured 0.486 g/cm2, corresponding to T-score of -3.3. NOTE: T-score: Standard deviation compared with peak bone mass of young adult mean. *Following the recommendations of the International Society of Bone Densitometry, classification of hip BMD is based on the lower of two T-scores; total hip or femoral neck. IMPRESSION: Osteoporosis: Lowest T-score is at or below -2.5. This patient's T-score meets the World Health Organization criteria for osteoporosis. Reviewed, Interpreted and Dictated by Stephon Allen MD Transcribed by Suki Ragland Authenticated and [facility]
== END ==
PROVIDERS: PCP Family Medicine; Visit Provider Family Medicine
DX: Z78.0 Asymptomatic menopausal state (principal); M81.0 Age-related osteoporosis without current pathological fracture
CPT/HCPCS: 77080

== ENCOUNTER → 2022-09-23 12:38 | Outpatient (CLI) | payer MEDICARE, SELFPAY ==
--- NOTE | 2022-09-23 12:44 | CT_ITS ---
FINAL REPORT TECHNIQUE: Axial images through the chest were performed by computed tomography before and after the administration of IV contrast. This study was performed with techniques to keep radiation doses as low as reasonably achievable, (ALARA). Individualized dose reduction techniques using automated exposure control or adjustment of mA and/or kV according to the patient's size were employed. CLINICAL HISTORY: CENTRILOBULAR EMPHYSEMA COMPARISON: 04/09/2022 FINDINGS: CT CHEST W & W/O CONTRAST There are multiple borderline mediastinal and hilar lymph nodes, stable. There is no axillary adenopathy. The heart size is normal. There is no pericardial or pleural effusion. Limited images of the upper abdomen demonstrates a left adrenal mass measuring 35 mm which is stable, favor an adenoma. On the lung window images there are mild changes of emphysema with mild pulmonary scarring. There has been partial improvement of the small opacity in the azyagoesophageal recess, favor inflammatory. Several other small nodular opacities are stable. No new mass or nodule is identified. IMPRESSION: Partial improvement of the small opacity in the azyagoesophageal esophageal recess. Several other small nodular opacities, stable. Stable left adrenal mass, favor an adenoma. Reviewed, Interpreted and Dictated by Rinku Munoz III, MD Transcribed by Suki Ragland Authenticated and [facility]
== END ==
PROVIDERS: PCP Family Medicine; Visit Provider Family Medicine
DX: J43.2 Centrilobular emphysema (principal)
CPT/HCPCS: 71270; Q9967

== ENCOUNTER 2022-10-08 09:41 | Outpatient (CLI) | payer MEDICARE, SELFPAY ==
[2022-10-08 09:55] VITALS: BP 155/74; PULSE 61; RESP 16; O2SAT 100
== END 2022-10-08 10:10 | disposition home or self-care (01) ==
LOC: INF 09:41
PROVIDERS: PCP Family Medicine; Visit Provider Family Medicine
DX: J43.2 Centrilobular emphysema (principal)
CPT/HCPCS: 96372; J0897

== ENCOUNTER 2023-04-29 10:06 | Outpatient (CLI) | payer MEDICARE, SELFPAY ==
[2023-04-29 10:17] VITALS: BP 150/60; PULSE 57; RESP 18; O2SAT 97
== END 2023-04-29 10:28 | disposition home or self-care (01) ==
LOC: INF 10:07
PROVIDERS: PCP Family Medicine; Visit Provider Family Medicine
DX: J43.2 Centrilobular emphysema (principal); M81.0 Age-related osteoporosis without current pathological fracture
CPT/HCPCS: 96372; J0897

== ENCOUNTER → 2023-05-18 13:30 | Outpatient (CLI) | payer MEDICARE, SELFPAY ==
--- NOTE | 2023-05-18 13:50 | ECG_ITS ---
APPROVED REPORT Exam: Resting ECG HR:70 bpm ECG Measurements Heart Rate 70 AXES [place] 243 P 84 QRSd 83 QRS 56 QT 403 T 75 QTc 423 Conclusion SINUS RHYTHM WITH FIRST DEGREE AV BLOCK NONSPECIFIC T-WAVE ABNORMALITY ABNORMAL ECG UNCONFIRMED REPORT Electronically signed by : Gonzalo Laughlin MD 05/18/2023 20:17:53
--- NOTE | 2023-05-18 13:53 | XR_ITS ---
FINAL REPORT CLINICAL HISTORY: Precordial chest pain COMPARISON: 05/05/2018 FINDINGS: Two views of the chest were obtained. The heart size and pulmonary vascularity are within normal limits. The mediastinum is normal. The lungs are hyperinflated consistent with COPD. No acute pulmonary abnormality is identified. There is no pneumothorax. The bony thorax is intact. IMPRESSION: No active cardiopulmonary disease. Reviewed, Interpreted and Dictated by Rinku Munoz III, MD Transcribed by Annemarie Ocampo Authenticated and [facility]
== END ==
PROVIDERS: PCP Family Medicine; Visit Provider Nurse Practitioner Family
DX: R07.9 Chest pain, unspecified (principal); Z87.891 Personal history of nicotine dependence
CPT/HCPCS: 71046; 93005

== ENCOUNTER → 2023-06-03 10:53 | Outpatient (CLI) | payer MEDICARE, SELFPAY ==
--- NOTE | 2023-06-03 10:58 | XR_ITS ---
FINAL REPORT CLINICAL HISTORY: SWELLING in left 2nd digit COMPARISON: None FINDINGS: 3 views of the left second digit were obtained. There is no acute fracture or dislocation. The joint spaces are intact. The soft tissues are unremarkable. IMPRESSION: No acute process. Reviewed, Interpreted and Dictated by Jace Menezes MD Transcribed by Annemarie Ocampo Authenticated and [facility]
== END ==
LOC: RAD 10:54
PROVIDERS: PCP Physician Assistant; Visit Provider Physician Assistant
DX: M25.442 Effusion, left hand (principal); M79.645 Pain in left finger(s)
CPT/HCPCS: 73140

== ENCOUNTER 2023-08-10 10:12 | Emergency (ER) | payer MEDICARE, SELFPAY ==
[2023-08-10 10:20] VITALS: BP 161/74; PULSE 66; RESP 18; TEMP 36.6; O2SAT 95; BMI 20.9
--- NOTE | 2023-08-10 10:39 | ED_ITS ---
Discharge Plan Disposition Patient Disposition: Home, Self-Care Condition: Good Prescriptions Prescriptions: New phenazopyridine [Pyridium] 200 mg tablet 200 mg PO Q8H 2 Days Qty: 6 0RF ondansetron 4 mg Tablet,Disintegrating 4 mg PO Q8H PRN (Reason: Nausea) Qty: 12 0RF nitrofurantoin monohyd/m-cryst [Macrobid] 100 mg Capsule 100 mg PO BID Qty: 10 0RF Rx Instructions: must administer with a meal/food No Action vitamin A 8,000 unit capsule 8,000 unit PO DAILY cholecalciferol (vitamin D3) 1,000 unit capsule 1,000 unit PO DAILY furosemide [Lasix] 20 mg tablet 20 mg PO DAILY rosuvastatin [Crestor] 40 mg tablet 40 mg PO DAILY coenzyme Q10 [Co Q-10] 200 mg capsule 200 mg PO DAILY potassium chloride 10 MEQ tablet extended release 10 meq PO DAILY nitroglycerin 0.4 MG tablet, sublingual 0.4 mg sublingual Q5MINP PRN (Reason: Chest Pain) Qty: 25 0RF omeprazole 40 mg capsule,delayed release(DR/EC) 20 mg PO DAILY losartan 50 MG tablet 50 mg PO DAILY aspirin 81 MG tablet,delayed release (DR/EC) 81 mg PO DAILY metoprolol tartrate 25 MG tablet 25 mg PO BID albuterol sulfate 90 mcg/actuation HFA aerosol inhaler See Rx Instructions .ROUTE .COMPLEX Patient Comments: INHALE 2 PUFFS BY MOUTH 4 TIMES DAILY Rx Instructions: INHALE 2 PUFFS BY MOUTH 4 TIMES DAILY Referrals Follow up/Referrals: Gonzalo Laughlin MD [Primary Care Provider] - See instructions Activity Restrictions/Add. Instructions Additional Instructions/Restrictions: Drink plenty of fluids. Take tylenol or ibuprofen for pain or fever. Take the medications as directed. Follow up with your regular doctor. GO TO THE ER FOR ANY WORSENING SYMPTOMS The pyridium will make your urine turn orange, this is an expected side effect. It will stain your clothes if it comes into contact with them. We will culture the urine. That will tell what bacteria is causing your infection and which antibiotics will treat it best. Sometimes the first antib iotic we prescribe turns out to not work against different bacteria. So, make sure you follow up within 3 days if you are not getting better. Clinical Impressions Clinical Impression: UTI (urinary tract infection) Instructions Patient Instructions: Urinary Tract Infection, Urine Culture, DI for Urinary Tract Infection (UTI), Phenazopyridine Discharge ED Provider: [place] [facility] General Stated complaint: poss uti Mode of Arrival: Ambulatory Source of Information: Patient Limitations: No Limitations Time Seen by Provider: 08/10/23 10:39 Description of Symptoms (Recalled from Triage Doc. by RN): Pts symptoms are burning, pressure, and flank pain. HEENT Symptoms (Recalled from RN notes): No Resp Symptoms (Recalled from RN notes): No Skin Symptoms (Recalled from RN notes): No MS Symptoms (Recalled from RN notes): No Functional Status (Recalled from RN notes): N/A History of Present Illness Provider Complaint: She states that for the past 4 days she has had dysuria, low back pain, and urinary frequency. Related Data Home Medications Medication Instructions Recorded Confirmed potassium chloride 10 mEq 10 meq PO DAILY Supplement 05/04/18 08/10/23 tablet,extended release cholecalciferol (vitamin D3) 25 1,000 unit PO DAILY Supplement 05/18/18 08/10/23 mcg (1,000 unit) capsule vitamin A 2,400 mcg capsule 8,000 unit PO DAILY Supplement 05/18/18 08/10/23 coenzyme Q10 200 mg capsule (Co 200 mg PO DAILY Supplement 02/01/19 08/10/23 Q-10) rosuvastatin 40 mg tablet (Crestor) 40 mg PO DAILY cholestrol 02/01/19 08/10/23 furosemide 20 mg tablet (Lasix) 20 mg PO DAILY Edema 04/13/19 08/10/23 omeprazole 40 mg capsule,delayed 20 mg PO DAILY GERD 04/13/19 08/10/23 release aspirin 81 mg tablet,delayed 81 mg PO DAILY heart health 05/19/19 08/10/23 release losartan 50 mg tablet 50 mg PO DAILY blood pressure 05/19/19 08/10/23 metoprolol tartrate 25 mg tablet 25 mg PO BID blood pressure 05/19/19 08/10/23 albuterol sulfate 90 mcg/actuation See Rx Instructions .Route .COMPLEX 08/10/23 08/10/23 aerosol inhaler Previous Rx's Medication Instructions Recorded nitroglycerin 0.4 mg sublingual 0.4 mg sublingual Q5MINP PRN Chest 10/19/18 tablet Pain ##25 nitrofurantoin 100 mg PO BID #10 caps 08/10/23 monohydrate/macrocrystals 100 mg capsule (Macrobid) ondansetron 4 mg disintegrating 4 mg PO Q8H PRN Nausea #12 tabs 08/10/23 tablet phenazopyridine 200 mg tablet 200 mg PO Q8H 2 days #6 tabs 08/10/23 (Pyridium) Allergies Allergy/AdvReac Type Severity Reaction Status Date / Time No Known Drug Allergies Allergy Unknown Verified 08/10/23 10:38 [NKDA] Worker's Comp Is this a Worker's Comp case?: No [facility] Disclaimer: The information contained in this section may have been updated after the patient was seen, as this information can be updated by other users. Medical History Allergies CAD (coronary artery disease) Dizziness Family history of cancer Family history of hyperlipidemia Family history of hypertension Heart attack HLD (hyperlipidemia) Hypotension Pacemaker Surgical History History of appendectomy History of gastric bypass Stented coronary artery Family History Other Family history of cancer Family history of hyperlipidemia Family history of hypertension Social History Smoking Status: Current every day smoker tobacco type: cigarettes packs per day: 2 second hand exposure: No alcohol intake: never substance use type: denies use current occupational status: retired Travel in the last 8 weeks: None household members: spouse housing: house caffeine: Yes ROS Obtained: Yes All systems reviewed & no additional complaints except as documented Constitutional Constitutional: Reports system reviewed and no additional complaints, except as documented, Denies chills and Denies fever(s) Eyes Eyes: Denies eye discharge ENT Ears, Nose, Mouth, and Throat: Denies dysphagia, Denies sore throat and Denies throat swelling Cardiovascular Cardiovascular: Denies chest pain and Denies dyspnea Respiratory Respiratory: Denies chest congestion, Denies cough and Denies dyspnea Gastrointestinal Gastrointestingal: Denies abdominal pain, constipation, diarrhea, dysphagia, nausea or vomiting Genitourinary Female Genitourinary: Reports as per HPI, Reports dysuria, Reports urinary frequency, Denies urinary incontinence, Reports urinary hesitancy and Reports urinary urgency Musculoskeletal Musculoskeletal: Denies arthralgias and Reports back pain Integumentary/Breasts Skin/Breast: Denies rash Neurologic Neurologic: Denies paresthesias Allergic/Immunologic Allergic/Immunologic: Denies throat swelling Physical Exam General General appearance: alert and in no apparent distress Head Head exam: atraumatic and normocephalic Eye Eye exam: Present normal appearance, PERRL and EOMI ENT ENT exam: Present normal exam, mucous membranes moist, TM's normal bilaterally and normal external ear exam Neck Neck exam: Present normal inspection, full ROM and trachea midline; Absent tenderness, meningismus or lymphadenopathy Chest Chest inspection: Present normal inspection and symmetric chest wall rise; A bsent tenderness Respiratory Respiratory exam: Present normal lung sounds bilaterally; Absent respiratory distress, wheezes or stridor Cardiovascular Cardiovascular exam: Present regular rate, normal rhythm and normal heart sounds Abdominal Exam Abdominal exam: Present soft and normal bowel sounds; Absent distention, tenderness, guarding, rebound, rigidity, incision, psoas sign, obturator sign, heel tap sign, Jones's sign, Rovsing's sign or tenderness at McBurney's Point Extremities Exam Extremities exam: Present normal inspection, full ROM and normal capillary refill; Absent tenderness, edema, joint swelling, calf tenderness or cyanosis Back Exam Back exam: Present normal inspection and full ROM; Absent tenderness, CVA tenderness (R) or CVA tenderness (L) Neurological Exam Neurological exam: Present alert, oriented X3 and normal gait Psychiatric Psychiatric exam: Present normal affect and normal mood Skin Skin exam: Present warm, dry, intact and normal color Lymphatic Lymphatic Findings: no adenopathy Medical Decision Making Medical Records Medical records reviewed: No I reviewed the patient's medical records. Arya Inquiry Pt receiving controlled substance: No Vital Signs: 08/10/23 10:20 Temperature 97.9 F Temperature Source Oral Pulse Rate [Right Radial] 66 Respiratory Rate 18 Blood Pressure [Right Arm] 161/74 H Blood Pressure Mean [Right Arm] 103 Blood Pressure Source [Right Arm] Automatic Cuff Blood Pressure Position [Right Arm] Sitting 02 Sat by Pulse Oximetry 95 Oxygen Delivery Method Room Air Lab Data Lab results reviewed: Yes I reviewed the patient's lab results. Orders (Tests/Meds): ORDERS Category Date Time Status Urine Culture Stat Micro 08/10/23 10:20 Received
--- NOTE | 2023-08-10 10:45 | PC.NURSE ---
Pt stated that she is allergic to some abx she took for a bronchitis infection about 5 years ago and doesn't remember. I called her pharmacy they have no record of it either.
[2023-08-10 10:56] LABS: Apearance,Urine Clear (Clear); Color,Urine Yellow (Yellow); Glucose,Urine (UA) Negative (Negative); Protein,Urine 3+ (Negative)
[2023-08-10 10:57] LABS: Bilirubin,Urine Negative (Negative); Blood, Urine Negative (Negative); Ketones,Urine Negative (Negative); UTC Leukocyte Esterase,Urine Trace (Negative); UTC Nitrate,Urine Negative (Negative); Urobilinogen,Urine 0.2 EU/dl (0.2)
[2023-08-10 11:07] VITALS: BP 161/74; PULSE 66; RESP 18; TEMP 36.6; O2SAT 95
== END 2023-08-10 11:07 | disposition home or self-care (01) ==
PROVIDERS: Emergency Provider Nurse Practitioner Family; PCP Internal Medicine Adolescent Medicine
DX: N39.0 Urinary tract infection, site not specified (principal); M54.59 Other low back pain; F17.210 Nicotine dependence, cigarettes, uncomplicated; E78.5 Hyperlipidemia, unspecified; I11.9 Hypertensive heart disease without heart failure; I25.10 Atherosclerotic heart disease of native coronary artery without angina pectoris; Z95.0 Presence of cardiac pacemaker; Z95.5 Presence of coronary angioplasty implant and graft
CPT/HCPCS: 81003; 87086; 99204; 99212; G0463

== ENCOUNTER 2023-08-12 14:56 | Emergency (ER) | payer MEDICARE, SELFPAY ==
[2023-08-12 15:45] VITALS: BP 152/73; PULSE 79; RESP 18; TEMP 36.9; O2SAT 95; BMI 20.7
--- NOTE | 2023-08-12 16:05 | PC.NURSE ---
DR MILIAN AT BEDSIDE
[2023-08-12 16:07] LABS: Microscopic, Urine URINE MICROSCOPIC (MICROSCOPIC)
--- NOTE | 2023-08-12 16:08 | CT_ITS ---
PROCEDURE INFORMATION: Exam: CT Abdomen And Pelvis With Contrast Exam date and time: 08/12/2023 4:49 PM Age: 72 years old Clinical indication: Abdominal pain; Generalized; Additional info: B/l low abd pain, UTI TECHNIQUE: Imaging protocol: Computed tomography of the abdomen and pelvis with contrast. Radiation optimization: All CT scans at this facility use at least one of these dose optimization techniques: automated exposure control; mA and/or kV adjustment per patient size (includes targeted exams where dose is matched to clinical indication); or iterative reconstruction. Contrast material: ISOVUE; Contrast volume: 75 ml; Contrast route: IV; COMPARISON: 1. ABDPELW/WO CT ABD PELVIS W/WO CONTRAST 02/09/2017 9:[address] CHEST WO/W CON 09/23/2022 12:[address] CHEST WO/W CON 04/09/2022 9:23 AM FINDINGS: Lungs: Calcified granuloma at the peripheral right lung base. 4 mm nodule of the right lung base (image six series 2). For patients at low risk (minimal or absent history of smoking and of other known risk factors), no routine follow-up is indicated. For patients at high risk (history of smoking or of other known risk factors), consider optional CT Chest at 12 months. (Reference: Dorothy). Scattered areas of bronchial wall thickening which are likely chronic inflammatory. A few areas of subpleural reticulation are noted, nonspecific. Liver: There is a low-density lesion in the liver which statistically reflects either a cyst or hemangioma. Otherwise, unremarkable liver parenchyma. Gallbladder and bile ducts: Normal. Pancreas: Normal. Spleen: Single calcification in the spleen, likely a calcified granuloma. Adrenal glands: No change in the 2.4 cm left adrenal nodule which has been previously characterized as an adenoma. Kidneys and ureters: There are no soft tissue renal masses or hydronephrosis. Stomach and bowel: The stomach, small bowel, and colon are well-distended and show no evidence of wall thickening, masses, or obstruction. Appendix: No evidence of appendicitis. Intraperitoneal space: Unremarkable. Vasculature: There is atherosclerotic disease of the visualized aorta and its major branch vessels. Lymph nodes: No lymphadenopathy. Urinary bladder: Slight interval increase in size of a 2.5 cm fluid collection adjacent to the urethra (image 104 series 2). Reproductive: 1 cm right adnexal cyst. Bones/joints: There is diffuse degenerative disease of the visualized osseous structures. Soft tissues: Unremarkable. IMPRESSION: 1. 2.5 cm fluid collection adjacent to the urethra which could reflect a urethral diverticulum or a Blade's duct cyst. This was present on the 2017 comparison study when it measured 1.6 cm. 2. Calcified granuloma at the peripheral right lung base. 4 mm nodule of the right lung base (image six series 2). For patients at low risk (minimal or absent history of smoking and of other known risk factors), no routine follow-up is indicated. For patients at high risk (history of smoking or of other known risk factors), consider optional CT Chest at 12 months. (Reference: Dorothy). 3. Otherwise, incidental findings as above. REFERENCES: Dorothy Alcaraz, et al. Guidelines for Management of Incidental Pulmonary Nodules Detected on CT Images: From the Fleischner Society 2017. Radiology. 2017;284(1):228-243.
--- NOTE | 2023-08-12 16:10 | ED_ITS ---
Discharge Plan Disposition Patient Disposition: Home, Self-Care Condition: Good Prescriptions Prescriptions: No Action vitamin A 8,000 unit capsule 8,000 unit PO DAILY cholecalciferol (vitamin D3) 1,000 unit capsule 1,000 unit PO DAILY furosemide [Lasix] 20 mg tablet 20 mg PO DAILY rosuvastatin [Crestor] 40 mg tablet 40 mg PO DAILY coenzyme Q10 [Co Q-10] 200 mg capsule 200 mg PO DAILY potassium chloride 10 MEQ tablet extended release 10 meq PO DAILY nitroglycerin 0.4 MG tablet, sublingual 0.4 mg sublingual Q5MINP PRN (Reason: Chest Pain) Qty: 25 0RF omeprazole 40 mg capsule,delayed release(DR/EC) 20 mg PO DAILY losartan 50 MG tablet 50 mg PO DAILY aspirin 81 MG tablet,delayed release (DR/EC) 81 mg PO DAILY metoprolol tartrate 25 MG tablet 25 mg PO BID albuterol sulfate 90 mcg/actuation HFA aerosol inhaler See Rx Instructions .ROUTE .COMPLEX Patient Comments: INHALE 2 PUFFS BY MOUTH 4 TIMES DAILY Rx Instructions: INHALE 2 PUFFS BY MOUTH 4 TIMES DAILY phenazopyridine [Pyridium] 200 mg tablet 200 mg PO Q8H 2 Days Qty: 6 0RF ondansetron 4 mg Tablet,Disintegrating 4 mg PO Q8H PRN (Reason: Nausea) Qty: 12 0RF nitrofurantoin monohyd/m-cryst [Macrobid] 100 mg Capsule 100 mg PO BID Qty: 10 0RF Rx Instructions: must administer with a meal/food Referrals Follow up/Referrals: Stephon Cates MD [Primary Care Provider] - See instructions Activity Restrictions/Add. Instructions Additional Instructions/Restrictions: At this time it was felt you are safe to be discharged home. If new or worsening symptoms please do not hesitate to return the emergency department. There is a spot in your lung that is calcified that is likely benign, most people in [place] have these, however please follow-up with your family doctor for continued surveillance long-term. Please follow-up with Dr. Cates in the next week should your symptoms persist. Clinical Impressions Clinical Impression: Abdominal pain, Back pain, Blade duct, cyst, Lesion of lung Instructions Patient Instructions: DI for Acute Abdominal Pain Discharge ED Provider: Paris Man General Adult HPI General Chief complaint: Abdominal Pain Stated complaint: back pain abd pain Time Seen by Provider: 08/12/23 15:01 Mode of Arrival: Ambulatory Source of Information: Patient Limitations: No Limitations Description of Symptoms (Recalled from ER Triage Doc. by RN): PT C/O MID LOW BACK PAIN AND LOWER ABDOMINAL PAIN THAT STARTED OVER THE WEEKEND. SEEN [facility] ON THURSDAY. TREATED FOR UTI, HAS HAD NO IMPROVEMENT. NO N/V, DENIES FEVER. REPORTS SMALL BM THIS AM History of Present Illness HPI narrative: Patient is a 72-year-old female with past medical history of ACS status post stenting, hypertension, hyperlipidemia, recently diagnosed urinary tract infection who presents emergency department for evaluation of abdominal pain. Patient was reportedly seen on Thursday for similar symptoms and was diagnosed urinary tract infection and discharged home Macrobid. Due to continued symptoms she presents here for for continued evaluation. She also has associated bilateral lower quadrant abdominal pain that radiates around into her back. No rashes. No vomiting or diarrhea. Related Data Home Medications Medication Instructions Recorded Confirmed potassium chloride 10 mEq 10 meq PO DAILY Supplement 05/04/18 08/10/23 tablet,extended release cholecalciferol (vitamin D3) 25 1,000 unit PO DAILY Supplement 05/18/18 08/10/23 mcg (1,000 unit) capsule vitamin A 2,400 mcg capsule 8,000 unit PO DAILY Supplement 05/18/18 08/10/23 coenzyme Q10 200 mg capsule (Co 200 mg PO DAILY Supplement 02/01/19 08/10/23 Q-10) rosuvastatin 40 mg tablet (Crestor) 40 mg PO DAILY cholestrol 02/01/19 08/10/23 furosemide 20 mg tablet (Lasix) 20 mg PO DAILY Edema 04/13/19 08/10/23 omeprazole 40 mg capsule,delayed 20 mg PO DAILY GERD 04/13/19 08/10/23 release aspirin 81 mg tablet,delayed 81 mg PO DAILY heart health 05/19/19 08/10/23 release losartan 50 mg tablet 50 mg PO DAILY blood pressure 05/19/19 08/10/23 metoprolol tartrate 25 mg tablet 25 mg PO BID blood pressure 05/19/19 08/10/23 albuterol sulfate 90 mcg/actuation See Rx Instructions .Route .COMPLEX 08/10/23 08/10/23 aerosol inhaler Previous Rx's Medication Instructions Recorded nitroglycerin 0.4 mg sublingual 0.4 mg sublingual Q5MINP PRN Chest 05/07/18 tablet Pain ##25 nitrofurantoin 100 mg PO BID #10 caps 08/10/23 monohydrate/macrocrystals 100 mg capsule (Macrobid) ondansetron 4 mg disintegrating 4 mg PO Q8H PRN Nausea #12 tabs 08/10/23 tablet phenazopyridine 200 mg tablet 200 mg PO Q8H 2 days #6 tabs 08/10/23 (Pyridium) Allergies Allergy/AdvReac Type Severity Reaction Status Date / Time No Known Drug Allergies Allergy Unknown Verified 08/10/23 10:38 [NKDA] [facility] Disclaimer: The information contained in this section may have been updated after the patient was seen, as this information can be updated by other users. Medical History Allergies CAD (coronary artery disease) Dizziness Family history of cancer Family history of hyperlipidemia Family history of hypertension Heart attack HLD (hyperlipidemia) Hypotension Pacemaker Surgical History History of appendectomy History of gastric bypass Stented coronary artery Family History Other Family history of cancer Family history of hyperlipidemia Family history of hypertension Social History Smoking Status: Current every day smoker tobacco type: cigarettes packs per day: 2 second hand exposure: No alcohol intake: never substance use type: denies use current occupational status: retired Travel in the last 8 weeks: None household members: spouse housing: house caffeine: Yes ROS Obtained: Yes Systems reviewed as appropriate & no additional complaints ex cept as documented Physical Exam General General appearance: alert and in no apparent distress Head Head exam: atraumatic and normocephalic Eye Eye exam: Present PERRL and EOMI ENT ENT exam: Present mucous membranes moist Neck Neck exam: Present normal inspection Chest Chest inspection: Present normal inspection and symmetric chest wall rise Respiratory Respiratory exam: Present normal lung sounds bilaterally; Absent respiratory distress Cardiovascular Cardiovascular exam: Present regular rate and normal rhythm Abdominal Exam Abdominal exam: Present soft; Absent tenderness Extremities Exam Extremities exam: Present normal inspection Neurological Exam Neurological exam: Present alert Psychiatric Psychiatric exam: Present normal affect Skin Skin exam: Present warm and dry Medical Decision Making Arya Inquiry Pt receiving controlled substance: No Vital Signs: 08/12/23 15:45 08/12/23 18:29 Temperature 98.5 F 98.1 F Temperature Source Oral Oral Pulse Rate 67 Pulse Rate [Radial] 79 Respiratory Rate 18 18 Blood Pressure 182/67 H Blood Pressure [Left Arm] 152/73 H Blood Pressure Mean [Left Arm] 99 Blood Pressure Source Automatic Cuff Blood Pressure Source [Left Arm] Automatic Cuff Blood Pressure Position Sitting Blood Pressure Position [Left Arm] Sitting 02 Sat by Pulse Oximetry 95 Oxygen Delivery Method Room Air Room Air Lab Data Lab Results 08/12/23 15:45: Urine Color Yellow, Urine Appearance Clear, Urine pH 7.0, Ur Specific [place] 1.010, Urine Protein Trace, Urine Glucose (UA) Negative, Urine Ketones Negative, Urine Blood 1+, Urine Nitrate Negative, Urine Bilirubin Negative, Urine Urobilinogen 2.0, Ur Leukocyte Esterase Negative, Urine RBC Occasional, Urine WBC Occasional, Ur Squamous Epith Cells Occasional, Urine Bacteria None 08/12/23 15:50: WBC 10.6, RBC 4.67, Hgb 15.1, Hct 44.5, MCV 95.2, MCH 32.4 H, MCHC 34.0, RDW 13.6, Plt Count 247, MPV 8.4, Neut % (Auto) 75.5, Lymph % (Auto) 15.8, [place] % (Auto) 6.2, Eos % (Auto) 2.0, Baso % (Auto) 0.5, Neut # (Auto) 8.0 H, Lymph # (Auto) 1.7, [place] # (Auto) 0.7, Eos # (Auto) 0.2, Baso # (Auto) 0.1, Sodium 137, Potassium 3.7, Chloride 98, Carbon Dioxide 34 H, Anion Gap 8.7, BUN 18 H, Creatinine 1.00, Estimated Creat Clear 44, Estimated GFR 54 L, Est GFR ( Amer) 66, Glucose 141 H, Calcium 9.6, Total Bilirubin 0.6, AST 26, ALT 15, Alkaline Phosphatase 120, Total Protein 7.6, Albumin 4.3, Globulin 3.3 H, Albumin/Globulin Ratio 1.3, Lipase 118 08/12/23 15:50 08/12/23 15:50 Orders (Tests/Meds): ED MEDICATIONS Discontinued Medications Generic Name Dose Route Start Last Admin Trade Name Freq PRN Reason Stop Dose Admin Acetaminophen 1,000 mg 08/12/23 16:08 08/12/23 16:21 Acetaminophen 1,000mg/100ml Vial IV 08/12/23 16:09 1,000 mg ONCE ONE Administration Lactated Ringer's 1,000 mls @ 999 mls/hr 08/12/23 16:08 08/12/23 16:38 Lactated Ringer's 1000 Ml Bag IV 08/12/23 17:08 999 mls/hr .Q1H1M ONE Administration Iopamidol 75 ml 08/12/23 17:06 08/12/23 17:07 Iopamidol-370 (76%);100ml Bottle IV 08/12/23 17:07 75 ml ONCE ONE Administration Ketorolac Tromethamine 30 mg 08/12/23 16:08 08/12/23 16:21 Ketorolac 30mg/Ml Vial IV 08/12/23 16:09 30 mg ONCE ONE Administration Sodium Chloride 10 ml 08/12/23 17:06 08/12/23 17:07 Sodium Chloride 0.9% 10ml Syr (Rad Only) IV 09/11/23 17:05 10 ml NEEDED PRN Administration Maintain IV Site ORDERS Category Date Time Status CT abdomen pelvis w con Stat Cat Scan 08/12/23 16:08 Completed CBC w/Auto Diff [Complete Blood Count Auto Diff] Stat Lab 08/12/23 15:50 Completed CMP [Comprehensive Metabolic Panel] Stat Lab 08/12/23 15:50 Completed Lipase Stat Lab 08/12/23 15:50 Completed UA [Urinalysis and Microscopic] Stat Lab 08/12/23 15:45 Completed Medical Decision Narrative: In summary patient is a 72-year-old female with past medical history described above who presents emergency department for evaluation of abdominal pain. Patient is hemodynamically stable nontoxic-appearing upon arrival, afebrile. Differential diagnosis includes urinary tract infection, abscess, mass, among others. Workup will be conducted with hematologic labs, urinalysis, CT abdomen pelvis IV contrast, swab. Initial inventions include crystalloid bolus, IV Tylenol, IV Toradol. Workup reviewed by me, hematologic labs are nonactionable, no leukocytosis or ISIAH. Urinalysis interpreted by me and not consistent with infection or infection that is responding to antibiotics. 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 At this point is felt that patient is appropriate for outpatient management at this time and was given return precautions. Critical Care Critical Care Time Critical Care Time: No
[2023-08-12 16:17] LABS: Basophils # 0.1 K/mm3 (0-0.2); Basophils % 0.5 % (0.1-2.0); Chloride 98 mmol/L (98-107); Eosinophils # 0.2 K/mm3 (0.0-0.4); Hematocrit 44.5 % (37.0-47.0); Hemoglobin 15.1 g/dL (12.2-16.2); Lymphocytes # 1.7 K/mm3 (0.7-4.5); Lymphocytes % 15.8 % (10-50); Mean Corpuscular Hemoglobin 32.4 pg (27.0-31.2); Mean Corpuscular Volume 95.2 fl (81-99); Mean Platelet Volume 8.4 fl (7.4-10.4); Monocytes # 0.7 K/mm3 (0.1-1.0); Monocytes % 6.2 % (1.7-9.3); Neutrophils % 75.5 % (37.0-80.0); Platelet Count 247 K/mm3 (142-424); Red Blood Count 4.67 M/mm3 (4.20-5.40); Red Cell Distribution Width 13.6 % (11.5-17.5); White Blood Count 10.6 K/mm3 (4.8-10.8)
[2023-08-12 16:17] LABS: Appearance,Urine CLEAR (Clear); Bilirubin,Urine Negative (Negative); Blood, Urine 1+ (Negative); Color,Urine YELLOW (Yellow); Glucose,Urine (UA) Negative (Negative); Ketones,Urine Negative (Negative); Leukocyte Esterase,Urine Negative (Negative); Nitrate,Urine Negative (Negative); Protein,Urine TRACE (Negative)
[2023-08-12 16:18] LABS: Potassium 3.7 mmoL/L (3.5-5.1); Sodium 137 mmol/L (136-145)
[2023-08-12 16:20] LABS: Alanine Aminotransferase 15 U/L (12-78); Alkaline Phosphatase 120 U/L (38-126); Anion Gap 8.7 mEq/L (5-15); Aspartate Amino Transferase 26 U/L (14-36); Bilirubin,Total 0.6 mg/dl (0.2-1.3); Blood Urea Nitrogen 18 mg/dl (7-17); Carbon Dioxide 34 mmol/L (22.0-30.0); Creatinine Clearance Estimated 44 mL/min (50-200); Estimated Glomerular Filt Rate 54 ml/min (>60); GFR (African American) 66 ML/MIN (>60)
[2023-08-12 16:21] LABS: Albumin Level 4.3 g/dl (3.5-5.0); Albumin/Globulin Ratio 1.3 (1.1-1.8); Calcium 9.6 mg/dl (8.4-10.2); Globulin 3.3 g/dL (1.3-3.2); Glucose 141 mg/dl (74-100); Lipase 118 U/L (23-300); Total Protein,Serum 7.6 g/dl (6.3-8.2)
[2023-08-12] MEDS: KETOROLAC 30MG/ML VIAL 30 MG IV (16:21)
[2023-08-12] MEDS: ACETAMINOPHEN 1,000MG/100ML VIAL 1000 MG IV (16:21)
[2023-08-12] MEDS: LACTATED RINGERS 1000ML 1,000 ML 999 ML IV (16:38)
[2023-08-12 16:53] LABS: RBC,Urine Occasional #/hpf (0-3); Squamous Epithelial Cell,Urine Occasional #/hpf (0-5); WBC,Urine Occasional #/hpf (0-3)
[2023-08-12] MEDS: SODIUM CHLORIDE 0.9% 10ML SYR (RAD ONLY) 10 ML IV (17:07)
[2023-08-12] MEDS: IOPAMIDOL-370 (76%);100ML BOTTLE 75 ML IV (17:07)
--- NOTE | 2023-08-12 18:13 | PC.NURSE ---
Patient given water to PO challenge.
[2023-08-12 18:29] VITALS: BP 182/67; PULSE 67; RESP 18; TEMP 36.7; O2SAT 95
--- NOTE | 2023-08-12 18:30 | PC.NURSE ---
pt states she hasn't taken her bp meds today. er md aware of bp and stated pt is ok to go home and to take bp meds when she gets home. pt verbalized understanding.
== END 2023-08-12 18:30 | disposition home or self-care (01) ==
PROVIDERS: Emergency Medicine; Emergency Provider Emergency Medicine; PCP Family Medicine
DX: R10.31 Right lower quadrant pain (principal); R10.32 Left lower quadrant pain; M54.50 Low back pain, unspecified; J98.4 Other disorders of lung; Q52.4 Other congenital malformations of vagina; I10 Essential (primary) hypertension; E78.5 Hyperlipidemia, unspecified; I25.10 Atherosclerotic heart disease of native coronary artery without angina pectoris; I25.2 Old myocardial infarction; F17.210 Nicotine dependence, cigarettes, uncomplicated; Z95.0 Presence of cardiac pacemaker
CPT/HCPCS: 74177; 80053; 81001; 83690; 85025; 96361; 96374; 96375; 99285; J0131; Q9967

== ENCOUNTER 2024-01-20 14:43 | Outpatient (CLI) | payer MEDICARE, SELFPAY | END 2024-01-20 23:59 | disposition home or self-care (01) | LOC: RT 14:45 | PROVIDERS: PCP Family Medicine; Visit Provider Nurse Practitioner | DX: R00.2 Palpitations (principal) | CPT/HCPCS: 93225; 93227 ==

== ENCOUNTER 2024-01-25 09:13 | Outpatient (CLI) | payer MEDICARE, SELFPAY | END 2024-01-25 23:59 | disposition home or self-care (01) | LOC: RT 09:14 | PROVIDERS: PCP Family Medicine; Visit Provider Nurse Practitioner | DX: R00.2 Palpitations (principal) | CPT/HCPCS: 93270 ==

== ENCOUNTER 2024-01-28 07:30 | Outpatient (CLI) | payer MEDICARE, SELFPAY ==
--- NOTE | 2024-01-28 07:31 | NM_ITS ---
APPROVED REPORT Exam: Nuclear Stress Test Indication: cp Patient Location: Outpatient Stress Tech: Sadia Chapman [place] Tech:ENEIDA Unger RT(R)(N) Ht: 5 ft 5 in Wt: 150 lbs Bra Size: b HR: 54 bpm BP: 174/66 mmHg BSA: 1.75 m2 TID: 1.04 BMI: 24.9 History: cp Procedure: Patient received 0.4 mg of intravenous Lexiscan, resting heart rate 54 bpm, resting blood pressure 174/66 mmHg, with Lexiscan maximum heart rate achieved was 69 bpm which is 85 % of the maximum predicted heart rate and blood pressure was 168/74 mmHg. With Lexiscan, patient denied any complaint of chest pain. Cardiac Stress and Resting SPECT Images: Cardiac Stress and Resting SPECT images were obtained using technetium 99m Myoview 32.5 mCi stress and 10.98 mCi at rest. Resting and stress imaging in supine and prone positions demonstrate no evidence of fixed or reversible perfusion defects. Gated imaging demonstrates normal global and regional LV systolic function. LVEF is calculated at 57%. Conclusion: No evidence of fixed or reversible perfusion defects. Gated imaging demonstrates normal global and regional LV systolic function. LVEF is calculated at 57%. Electronically signed by : Rachel Russo MD 01/31/2024 12:21:31
[2024-01-28] MEDS: SODIUM CHLORIDE 0.9% 10ML SYR (RAD ONLY) 10 ML IV ×2 (09:36)
[2024-01-28] MEDS: ISOTOPE MYOVIEW (PER STUDY) 1 DOSE IV (09:36)
[2024-01-28] MEDS: REGADENOSON 0.4MG/5ML SYRINGE 0.4 MG IV (09:36)
== END 2024-01-28 23:59 | disposition home or self-care (01) ==
LOC: RAD 07:31
PROVIDERS: PCP Family Medicine; Visit Provider Nurse Practitioner
DX: R07.9 Chest pain, unspecified (principal)
CPT/HCPCS: 78452; 93017; 93018; A9502; J2785

== ENCOUNTER 2024-02-01 07:38 | Outpatient (CLI) | payer MEDICARE, SELFPAY ==
--- NOTE | 2024-02-01 07:39 | CA_ITS ---
FINAL REPORT CLINICAL HISTORY: Hypertension FINDINGS: Right kidney: 10.6 cm. No evidence of hydronephrosis or mass. Right intrarenal RI: 0.5-0.65 Right renal artery velocity: 152 cm/sec. Right RAR (Renal artery-Aortic Ratio): 3.0 Left Kidney: 9.3 cm. No evidence of hydronephrosis or mass. Left intrarenal RI: 0.44-0.68 Left renal artery velocity: 460 cm/sec. Left RAR (Renal Artery-Aortic Ratio): 7.7 IMPRESSION: Greater than 60% stenosis of the left renal artery. CT angiogram or postcontrast MR angiogram would be more sensitive for evaluation of possible renal artery stenosis. Reviewed, Interpreted and Dictated by Francisca Blood MD Transcribed by Vielka Rondon Authenticated and . [facility]
--- NOTE | 2024-02-01 07:39 | CA_ITS ---
APPROVED REPORT EXAM: Comprehensive 2D, Doppler, and color-flow Echocardiogram Credit Control Officer: Areli Schaeffer, RT(R) Ht: 5 ft 5 in Wt: 127lbs BSA: 1.63 BP: 164/64 mmHg Indications: HTN, SOB, pedal edema, CAD 2D Dimensions LVEF (Tracy's) 58.40 % F: 54 - 74 LV Volume 86.00 mL F: 46 - 106 LV Volume Index 52.8 mL/m2 F: 29 - 61 LA Volume 36.00 mL LA Volume Index 22.09 mL/m2 (M/F) 16-34 EF AP4 61.60 % EF AP2 54.0 % EF BP 58.4 % GL Strain -16.6 % M-Mode Dimensions RVDd 2.27 cm (0.9-2.6) LA Diam 2.78 cm (1.9-4.0) LVDd 5.22 cm (3.5-5.7) LVDs 3.78 cm (3.5-5.7) IVSd 0.83 cm (0.6-1.1) PWd 0.87 cm (0.6-1.1) EF (Teich) 53.20% FS 27.60% EDV (Teich) 130.70 mL ESV (Teich) 61.20 mL LV Diastology E Decel Time 207 (160-240 msec) E/A Ratio 0.9 Mitral Valve MV E Max Rivera. 86.0 (40-130 cm/s) MV A Velocity 97.0 (40-130 cm/s) E/A Ratio 0.88 MV PHT 61.0 ms Tricuspid Valve TR P. Velocity 211.00 cm/s RAP Estimate 10.00 mmHg RVSP 27.90 mmHg Left Ventricle The left ventricle is normal size. The left ventricular systolic function is normal. The left ventricular ejection fraction is within the normal range. There is normal left ventricular wall thickness. There is normal LV segmental wall motion. The left ventricular diastolic function is normal. LVEF is 55%. Right Ventricle Right ventricle is mildly dilated. The right ventricular systolic function is normal. Atria The left atrium size is normal. The right atrium size is normal. There is no Doppler evidence of interatrial shunt. Aortic Valve The aortic valve is mildly thickened. There is no aortic valvular stenosis. Trace aortic regurgitation. Mitral Valve The mitral valve is normal in structure. No evidence of mitral valve stenosis. Mild mitral regurgitation. Tricuspid Valve The tricuspid valve leaflets are thin and pliable. Mild tricuspid regurgitation. RVSP is 20-25 mmHg. Pulmonic Valve The pulmonary valve is normal in structure. Trace pulmonic regurgitation. Great Vessels The aortic root is normal in size. The ascending aorta is normal in size. IVC is normal in size and collapses >50% with inspiration. Pericardium There is no pericardial effusion. Other Information Study Quality: Fair Conclusion Normal biventricular systolic function. Mild RV dilation. Mild MR, mild TR. Electronically signed by : Rachel Russo MD 02/03/2024 03:27:52
--- NOTE | 2024-02-01 08:33 | US_ITS ---
FINAL REPORT CLINICAL HISTORY: I10 - Essential (primary) hypertension COMPARISON: None FINDINGS: RENAL ULTRASOUND Ultrasound images of the kidneys were obtained. Limited images of the liver parenchyma demonstrates normal echogenicity. The right kidney measures 11.8 cm in length. There is no hydronephrosis. There is a small cortical cyst in the lower pole of the right kidney. There is mild renal cortical thinning. The left kidney measures 8.7 cm in length. There is a small cortical cyst in the upper pole. There is no hydronephrosis. Mild left renal cortical thinning is noted. IMPRESSION: Bilateral renal cysts and mild bilateral renal cortical thinning. Reviewed, Interpreted and Dictated by Francisca Blood MD Transcribed by Annemarie Ocampo Authenticated and [facility]
== END 2024-02-01 23:59 | disposition home or self-care (01) ==
LOC: RT 07:39
PROVIDERS: PCP Family Medicine; Visit Provider Nurse Practitioner
DX: R06.02 Shortness of breath (principal); R60.0 Localized edema; I10 Essential (primary) hypertension
CPT/HCPCS: 76770; 93306; 93976

== ENCOUNTER 2024-05-04 07:36 | Outpatient (CLI) | payer MEDICARE, SELFPAY ==
--- NOTE | 2024-05-04 07:39 | CT_ITS ---
FINAL REPORT CLINICAL HISTORY: smoker, 1/2 ppd x 30 years COMPARISON: Chest CT dated 09/23/2022, low-dose chest CT dated 10/12/2020 FINDINGS: Axial images were obtained from the lung apex to the mid abdomen by computed tomography. Low-dose protocol was utilized. CTDl vol(mGy): 2.90 DLP (mGy-cm): 105.51 FINDINGS: There is no axillary adenopathy. There is no hilar or mediastinal adenopathy. The heart size is normal. There is no pericardial or pleural effusion. There is mild biapical pleural and parenchymal scarring. There is a minimal nodular density in the anterior right upper lobe seen on image 25 of series 3. This is stable and measures 4 mm in greatest dimension. A nodular density in the periphery of the right lower lobe measures 4 mm and is stable. This is best seen on image 55 of series 3. Limited images of the upper abdomen demonstrate a left adrenal nodule measuring 2.3 cm. This demonstrates a mean attenuation value of 1 Hounsfield unit consistent with an adenoma. IMPRESSION: Stable pulmonary nodules. Lung RADS category 2S. Recommend 12 month follow-up low-dose chest CT. S qualifier: Left adrenal adenoma. Reviewed, Interpreted and Dictated by Jace Menezes MD Transcribed by Char Torrez Authenticated and [facility]
--- NOTE | 2024-05-04 07:40 | MM_ITS ---
PROCEDURE INFORMATION: Exam: MG Bilateral Screening 3D Mammography Exam date and time: 05/04/2024 7:57 AM Age: 73 years old Clinical indication: Screening examination TECHNIQUE: Imaging protocol: Bilateral Screening tomosynthesis and 2D mammography including computer-aided detection (CAD) when performed. COMPARISON: 1. MG MM DIG SCREENING MAMM BI W/CAD 01/14/2021 1:00 PM 2. MG MM DIG SCREENING MAMM BI W/CAD 01/11/2020 1:07 PM FINDINGS: MAMMOGRAPHY: Breast composition: The breasts are heterogeneously dense, which may obscure small masses. Mass: No suspicious masses. Architectural distortion: None. Calcifications: No suspicious calcifications. Asymmetric density: None. Skin thickening: None. Axillary adenopathy: None. IMPRESSION: No mammographic evidence of malignancy. Annual screening is recommended unless otherwise clinically indicated. ASSESSMENT: BI-RADS Category 1: Negative.
== END 2024-05-04 23:59 | disposition home or self-care (01) ==
LOC: RAD 07:37
PROVIDERS: PCP Family Medicine; Visit Provider Physician Assistant
DX: Z87.891 Personal history of nicotine dependence (principal); Z12.31 Encounter for screening mammogram for malignant neoplasm of breast
CPT/HCPCS: 71271; 77063; 77067

== ENCOUNTER 2024-05-09 08:53 | Outpatient (CLI) | payer MEDICARE, SELFPAY ==
--- NOTE | 2024-05-09 08:56 | XR_ITS ---
FINAL REPORT CLINICAL HISTORY: SCREENING FINDINGS: Using L1-4, the bone mineral density of the spine is 0.747 g/cm2, corresponding to T-score of -2.7. Using the left hip, the bone mineral density of the femoral neck is 0.486 g/cm2, corresponding to a T-score of -3.3. IMPRESSION: Osteoporotic bone mineral density of the lumbar spine and left hip. NOTE: T-score: Standard deviation compared with peak bone mass of young adult mean. *Following the recommendations of the International Society of Bone densitometry, classification of hip BMD is based on the lower of two T-scores; total hip or femoral neck. Reviewed, Interpreted and Dictated by Jace Menezes MD Transcribed by Char Torrez Authenticated and [facility]
== END 2024-05-09 23:59 | disposition home or self-care (01) ==
LOC: RAD 08:54
PROVIDERS: PCP Family Medicine; Visit Provider Physician Assistant
DX: M81.0 Age-related osteoporosis without current pathological fracture (principal)
CPT/HCPCS: 77080

== ENCOUNTER 2024-06-09 09:01 | Observation (INO) | payer MEDICARE, SELFPAY ==
[2024-06-09] VITALS (11 sets, daily range): BP systolic 131–168; BP diastolic 62–77; PULSE 55–65; RESP 16–22; TEMP 36.4–36.6; O2SAT 92–96; BMI 19.6; BMI 19.5
--- NOTE | 2024-06-09 09:48 | HMH.EDGENADL ---
Discharge Plan Disposition Patient Disposition: Admitted Chief Complaint: Nausea/Vomiting/Diarrhea Prescriptions Prescriptions: No Action vitamin A 8,000 unit capsule 8,000 unit PO DAILY cholecalciferol (vitamin D3) 1,000 unit capsule 1,000 unit PO DAILY alendronate 70 mg tablet 70 mg PO WEEKLY Patient Comments: TAKE 1 TABLET BY MOUTH ONCE A WEEK. TAKE WITH PLAIN WATER 30 MINUTES BEFORE THE FIRST FOOD, BEVERAGE, OR MEDICINE FOF THE DAY furosemide [Lasix] 20 mg tablet 20 mg PO DAILY rosuvastatin [Crestor] 40 mg tablet 40 mg PO DAILY amlodipine 5 mg tablet 5 mg PO DAILY Qty: 90 3RF potassium chloride 10 MEQ tablet extended release 10 meq PO DAILY nitroglycerin 0.4 MG tablet, sublingual 0.4 mg sublingual Q5MINP PRN (Reason: Chest Pain) Qty: 25 0RF omeprazole 40 mg capsule,delayed release(DR/EC) 20 mg PO DAILY metoprolol tartrate 25 MG tablet 25 mg PO BID losartan 50 mg tablet 50 mg PO BID albuterol sulfate 90 mcg/actuation HFA aerosol inhaler See Rx Instructions .ROUTE .COMPLEX Patient Comments: INHALE 2 PUFFS BY MOUTH 4 TIMES DAILY Rx Instructions: INHALE 2 PUFFS BY MOUTH 4 TIMES DAILY Referrals Follow up/Referrals: Stephon Cates MD [Primary Care Provider] - See instructions Clinical Impressions Clinical Impression: Vomiting, Acute hyponatremia, Acute hypokalemia Instructions Patient Instructions: DI for Diarrhea and Traveler's Diarrhea -- Adult, DI for Diarrhea and Traveler's Diarrhea -- Child, DI for Nausea -- Adult, DI for Nausea -- Child Print Language Print Language: Panamanian Discharge ED Provider: León Sousa General Adult HPI General Chief complaint: Nausea/Vomiting/Diarrhea Stated complaint: vomiting, weakness Time Seen by Provider: 06/09/24 09:10 Mode of Arrival: Wheelchair Source of Information: Patient Limitations: No Limitations Description of Symptoms (Recalled from ER Triage Doc. by RN): Reports not being able to keep anything down for a couple of days. Denies abdomen pain or diarrhea. History of Present Illness HPI narrative: Patient is 73-year-old female with no pertinent past medical history who presents emergency department for evaluation of nausea and vomiting. Onset was acute, over the last 72 hours. No sick contacts at home. She does not have any abdominal pain or chest pain. Last bowel movement yesterday was normal. Vomiting is nonbloody. Due to persistent symptoms she presents here for continued evaluation. Related Data Home Medications ?Medication ?Instructions ?Recorded ?Confirmed potassium chloride 10 mEq 10 meq PO DAILY Supplement 05/04/18 02/03/24 tablet,extended release cholecalciferol (vitamin D3) 25 1,000 unit PO DAILY Supplement 05/18/18 02/03/24 mcg (1,000 unit) capsule vitamin A 2,400 mcg capsule 8,000 unit PO DAILY Supplement 05/18/18 02/03/24 rosuvastatin 40 mg tablet (Crestor) 40 mg PO DAILY cholestrol 02/01/19 02/03/24 furosemide 20 mg tablet (Lasix) 20 mg PO DAILY Edema 04/13/19 02/03/24 omeprazole 40 mg capsule,delayed 20 mg PO DAILY GERD 04/13/19 02/03/24 release metoprolol tartrate 25 mg tablet 25 mg PO BID blood pressure 05/19/19 02/03/24 albuterol sulfate 90 mcg/actuation See Rx Instructions .Route .COMPLEX 08/10/23 02/03/24 aerosol inhaler alendronate 70 mg tablet 70 mg PO WEEKLY 01/20/24 02/03/24 losartan 50 mg tablet 50 mg PO BID blood pressure 01/20/24 02/03/24 Previous Rx's ?Medication ?Instructions ?Recorded nitroglycerin 0.4 mg sublingual 0.4 mg sublingual Q5MINP PRN Chest 05/07/18 tablet Pain ##25 amlodipine 5 mg tablet 5 mg PO DAILY #90 tabs 02/03/24 Allergies Allergy/AdvReac Type Severity Reaction Status Date / Time No Known Drug Allergies Allergy Unknown Verified 02/03/24 09:39 (NKDA) [facility] Disclaimer: The information contained in this section may have been updated after the patient was seen, as this information can be updated by other users. Medical History Allergies Family history of cancer Family history of hyperlipidemia Family history of hypertension Heart attack Dizziness Hypotension HLD (hyperlipidemia) CAD (coronary artery disease) Surgical History History of gastric bypass History of appendectomy Stented coronary artery Family History Other Family history of cancer Family history of hyperlipidemia Family history of hypertension Social History (Updated 02/03/24 @ 10:04 by Elisha Arnold RN) Smoking Status: Unknown if ever smoked second hand exposure: No alcohol intake: never substance use type: denies use current occupational status: retired Travel in the last 8 weeks: None household members: spouse housing: house caffeine: Yes Other Medical History Have you received the Flu Vaccine for this season: Yes Have you received the Pneumonia Vaccine: Yes ROS Obtained: Yes Systems reviewed as appropriate & no additional complaints except as documented Physical Exam General General appearance: alert and in no apparent distress Head Head exam: atraumatic and normocephalic Eye Eye exam: Present PERRL ENT ENT exam: Present mucous membranes moist Neck Neck exam: Present normal inspection Chest Chest inspection: Present normal inspection and symmetric chest wall rise Respiratory Respiratory exam: Present normal lung sounds bilaterally; Absent respiratory distress Cardiovascular Cardiovascular exam: Present regular rate and normal rhythm Abdominal Exam Abdominal exam: Present soft; Absent tenderness or guarding Extremities Exam Extremities exam: Present normal inspection Neurological Exam Neurological exam: Present alert and CN II-XII intact; Absent motor sensory deficit Psychiatric Psychiatric exam: Present normal affect Skin Skin exam: Present warm and dry Medical Decision Making Medical Records Screening: Per USPSTF and CDC recommendations, given the prevalence of disease in our region, it is our hospital?s policy to screen for HIV and viral Hepatitis for all patients aged 18 and over and those with ongoing risk factors. Arya Inquiry Pt receiving controlled substance: No Vital Signs: 06/09/24 09:03 06/09/24 09:30 06/09/24 10:00 Temperature 97.9 F Temperature Source Oral Pulse Rate 59 L 57 L Pulse Rate [Radial] 61 Respiratory Rate 18 Blood Pressure 161/77 H 152/70 H Blood Pressure [Right Arm] 151/65 H Blood Pressure Mean 119 124 Blood Pressure Mean [Right Arm] 93 Blood Pressure Source [Right Arm] Automatic Cuff Blood Pressure Position [Right Arm] Sitting 02 Sat by Pulse Oximetry 95 95 96 Oxygen Delivery Method Room Air 06/09/24 10:30 06/09/24 11:08 06/09/24 11:31 Temperature Temperature Source Pulse Rate 55 L 59 L 56 L Pulse Rate [Radial] Respiratory Rate 22 22 Blood Pressure 137/62 151/64 H 167/69 H Blood Pressure [Right Arm] Blood Pressure Mean 109 101 Blood Pressure Mean [Right Arm] Blood Pressure Source [Right Arm] Blood Pressure Position [Right Arm] 02 Sat by Pulse Oximetry 96 95 96 Oxygen Delivery Method Room Air Lab Data Lab Results 06/09/24 09:25: WBC 6.2, RBC 4.74, Hgb 15.1, Hct 40.4, MCV 85.2, MCH 31.7 H, MCHC 37.3 H, RDW 13.2, Plt Count 228, MPV 7.8, Neut % (Auto) 85.3 H, Lymph % (Auto) 8.7 L, [place] % (Auto) 5.3, Eos % (Auto) 0.2, Baso % (Auto) 0.5, Neut # (Auto) 5.3, Lymph # (Auto) 0.5 L, [place] # (Auto) 0.3, Eos # (Auto) 0.0, Baso # (Auto) 0.0, Total Counted 100, Neutrophils % (Manual) 86 H, Lymphocytes % (Manual) 10, Monocytes % (Manual) 4, Platelet Estimate Normal, RBC Morphology Normal, Sodium 119 L, Potassium 2.7 L*, Chloride 83 L, Carbon Dioxide 27, Anion Gap 11.7, BUN 6 L, Creatinine 0.70, Estimated Creat Clear 41, Estimated GFR 82, Est GFR ( Amer) 99, Glucose 169 H, Calcium 8.9, Total Bilirubin 0.9, AST 33, ALT 18, Alkaline Phosphatase 193 H, Total Protein 7.2, Albumin 4.4, Globulin 2.8, Albumin/Globulin Ratio 1.6, Lipase 223 06/09/24 11:05: Urine Color Yellow, Urine Appearance Sl cloudy, Urine pH 8.0, Ur Specific [place] 1.015, Urine Protein Trace, Urine Glucose (UA) Trace, Urine Ketones Negative, Urine Blood Trace-i, Urine Nitrate Negative, Urine Bilirubin Negative, Urine Urobilinogen 1.0, Ur Leukocyte Esterase Negative, Urine RBC Occasional, Urine WBC None, Ur Squamous Epith Cells Occasional, Amorphous Sediment 2+, Urine Bacteria 2+ 06/09/24 09:25 06/09/24 09:25 Orders (Tests/Meds): ED MEDICATIONS Generic Name Dose Route Start Last Admin Trade Name Freq PRN Reason Stop Dose Admin Potassium Chloride/Water 100 mls @ 50 mls/hr 06/09/24 10:09 06/09/24 10:27 Potassium Chloride 20meq/100ml Ivpb IV 06/09/24 16:08 50 mls/hr Q2H DEMETRIS Administration Discontinued Medications Generic Name Dose Route Start Last Admin Trade Name Alber PRN Reason Stop Dose Admin Ondansetron HCl 4 mg 06/09/24 09:47 06/09/24 09:51 Ondansetron 4mg/2ml Vial IV 06/09/24 09:48 4 mg ONCE ONE Administration Sodium Chloride 500 ml 06/09/24 09:47 06/09/24 09:50 Sodium Chloride 0.9% 500ml Bag IV 06/09/24 09:48 500 ml ONCE ONE Administration ORDERS Category Date Time Status CBC w/Auto Diff [Complete Blood Count Auto Diff] Stat Lab 06/09/24 09:25 Completed CMP [Comprehensive Metabolic Panel] Stat Lab 06/09/24 09:25 Completed HIV (1&2) Antibody Rapid Stat Lab 06/09/24 09:25 Received Hep C Ab with Reflex to RNA Stat Lab 06/09/24 09:25 Received Lipase Stat Lab 06/09/24 09:25 Completed UA [Urinalysis and Microscopic] Stat Lab 06/09/24 11:05 Completed Urine Culture Stat Micro 06/09/24 11:05 Received EKG Request [ECG Request] Stat Y 06/09/24 11:49 Ordered ECG Data Tracing #1: Independently interpreted by me rate is 57, rhythm is regular, axis is normal, no ST elevation in anatomical contiguous leads, QTc 412. Medical Decision Narrative: In summary patient is 73-year-old female past medical history described above who presents emergency department for evaluation of nausea and vomiting. Patient is hemodynamically stable nontoxic-appearing upon arrival, afebrile. I suspect the patient has nonspecific viral syndrome. Differential includes urinary tract infection, pancreatitis, among others. Limited workup we conducted with hematologic labs, urinalysis. Initial inventions include small cluster of bolus that she has not been able to tolerate p.o., Zofran, p.o. challenge. Intra-abdominal imaging was considered however patient has no abdominal pain and nontender exam will be deferred at this time. Initial workup reviewed by me, no significant leukocytosis or acute anemia, severe hypokalemia 2.7 which will be repleted IV. She has hypochloremia and hyponatremia consistent with her vomiting. I suspect her hyponatremia and hypokalemia are all extrarenal GI losses given her history. Urinalysis interpreted by me and not consistent with infection. Patient will require admission for her electrolyte derangements. The case was discussed with Dr. Cates regarding management and he agrees. Patient be admitted to their service for continued evaluation at this time. Critical Care Critical Care Time Critical Care Time: Yes Attestation: On 06/09/24, the high probability of a clinically significant, sudden or life threatening deterioration of the following system(s) required my full and direct attention, intervention and personal management. The time I documented below is in addition to time spent performing reported procedures but includes the following listed in this critical care notation. Total Time Total Critical Care Time: 40
[2024-06-09] MEDS: SODIUM CHLORIDE 0.9% 500ML BAG 500 ML IV (09:50)
[2024-06-09] MEDS: ONDANSETRON 4MG/2ML VIAL 4 MG IV (09:51)
[2024-06-09 09:56] LABS: Basophils % 0.5 % (0.1-2.0); Eosinophils % 0.2 % (0.1-12.0); Hematocrit 40.4 % (37.0-47.0); Hemoglobin 15.1 g/dL (12.2-16.2); Lymphocytes # 0.5 K/mm3 (0.7-4.5); Lymphocytes % 8.7 % (10-50); Mean Corpuscular HGB Conc 37.3 g/dL (31.8-35.4); Mean Corpuscular Hemoglobin 31.7 pg (27.0-31.2); Mean Corpuscular Volume 85.2 fl (81-99); Mean Platelet Volume 7.8 fl (7.4-10.4); Monocytes # 0.3 K/mm3 (0.1-1.0); Monocytes % 5.3 % (1.7-9.3); Neutrophils # 5.3 K/mm3 (1.8-7.8); Neutrophils % 85.3 % (37.0-80.0); Platelet Count 228 K/mm3 (142-424); Red Blood Count 4.74 M/mm3 (4.20-5.40); Red Cell Distribution Width 13.2 % (11.5-17.5); White Blood Count 6.2 K/mm3 (4.8-10.8)
[2024-06-09 10:00] LABS: Albumin Level 4.4 g/dl (3.5-5.0); Chloride 83 mmol/L (98-107); Sodium 119 mmol/L (136-145)
[2024-06-09 10:03] LABS: Alanine Aminotransferase 18 U/L (12-78); Albumin/Globulin Ratio 1.6 (1.1-1.8); Alkaline Phosphatase 193 U/L (38-126); Anion Gap 11.7 mEq/L (5-15); Aspartate Amino Transferase 33 U/L (14-36); Bilirubin,Total 0.9 mg/dl (0.2-1.3); Blood Urea Nitrogen 6 mg/dl (7-17); Calcium 8.9 mg/dl (8.4-10.2); Carbon Dioxide 27 mmol/L (22.0-30.0); Creatinine Clearance Estimated 41 mL/min (50-200); Estimated Glomerular Filt Rate 82 ml/min (>60); GFR (African American) 99 ML/MIN (>60); Globulin 2.8 g/dL (1.3-3.2); Glucose 169 mg/dl (74-100); Lipase 223 U/L (23-300); Total Protein,Serum 7.2 g/dl (6.3-8.2)
[2024-06-09 10:04] LABS: MANUAL DIFFERENTIAL MANUAL DIFFERENTIAL (MANUAL DIFF)
[2024-06-09 10:05] LABS: Potassium 2.7 mmoL/L (3.5-5.1)
--- NOTE | 2024-06-09 10:25 | PC.NURSE ---
Dr. Sousa notified of K+2.7.
[2024-06-09] MEDS: KCl 20mEq/100ml 100 ML 50 MEQ IV ×3 (10:27→16:47)
[2024-06-09 11:00] LABS: Lymphocytes % 10 % (10-50); Monocytes % 4 % (2-9); Neutrophils % 86 % (42-76); Platelet Estimate Normal; RBC Morphology Normal; Total Cells Counted 100
[2024-06-09 11:10] LABS: Microscopic, Urine URINE MICROSCOPIC (MICROSCOPIC)
[2024-06-09 11:21] LABS: Appearance,Urine SL CLOUDY (Clear); Bilirubin,Urine Negative (Negative); Blood, Urine TRACE-I (Negative); Color,Urine YELLOW (Yellow); Glucose,Urine (UA) TRACE (Negative); Ketones,Urine Negative (Negative); Leukocyte Esterase,Urine Negative (Negative); Nitrate,Urine Negative (Negative); Protein,Urine TRACE (Negative); Specific Gravity, Urine 1.015 (1.005-1.030)
[2024-06-09 11:40] LABS: Bacteria,Urine 2+ /lpf; RBC,Urine Occasional #/hpf (0-3)
[2024-06-09 11:41] LABS: Amorphous Sediment,Urine 2+ /lpf; Squamous Epithelial Cell,Urine Occasional #/hpf (0-5)
--- NOTE | 2024-06-09 11:48 | PC.NURSE ---
ice water given to patient at this time.
--- NOTE | 2024-06-09 11:48 | PC.NURSE ---
rosa maria Cates
--- NOTE | 2024-06-09 11:49 | ECG_ITS ---
APPROVED REPORT Exam: Resting ECG HR:57 bpm ECG Measurements Heart Rate 57 AXES PA 283 P 77 QRSd 80 QRS 49 QT 417 T -50 QTc 412 Conclusion SINUS BRADYCARDIA WITH FIRST DEGREE AV BLOCK NONSPECIFIC ST & T-WAVE ABNORMALITY ABNORMAL ECG Electronically signed by : NAYA MILIAN, 06/09/2024 15:13:13
--- NOTE | 2024-06-09 12:10 | PC.NURSE ---
Report given to MICHELE Zimmer on Med Surg.
[2024-06-09 12:11] LABS: HIV (1&2) Antibody Rapid NONREACTIVE (NONREACTIVE)
[2024-06-09] MEDS: 0.9 % SODIUM CHLORIDE 1000ML 1,000 ML 80 ML IV (12:37)
--- NOTE | 2024-06-09 12:58 | EXP.HP ---
History of Present Illness *Admission Date: 06/09/24 *Reason for visit:: nausea, vomiting *History of present illness: Ms. Pickard is a 73yo female who began feeling poorly over the weekend. She states she was fatigued and had nausea and a cough. She began wheezing and continued to feel poorly. Her nausea worsened last night and then she began vomiting this am. She states she vomited 4 times and became very weak. She denies any diarrhea. She presented to the ER and was found to have hypokalemia. She was given potassium and started on IVF's and will be admitte. [facility] Disclaimer: The information contained in this section may have been updated after the patient was seen, as this information can be updated by other users. Medical History (Updated 06/09/24 @ 13:10 by SMILEY Evans) HTN (hypertension) GERD (gastroesophageal reflux disease) Anxiety Allergies Family history of cancer Family history of hyperlipidemia Family history of hypertension Heart attack Dizziness Hypotension HLD (hyperlipidemia) CAD (coronary artery disease) Surgical History (Updated 06/09/24 @ 13:04 by SMILEY Evans) History of cataract surgery History of gastric bypass History of appendectomy Stented coronary artery Family History Other Family history of cancer Family history of hyperlipidemia Family history of hypertension Social History (Updated 06/09/24 @ 12:52 by Serina Pastrana RN) Smoking Status: Current every day smoker tobacco type: cigarettes packs per day: 0 second hand exposure: No alcohol intake: never substance use type: denies use current occupational status: retired Travel in the last 8 weeks: None household members: spouse housing: house caffeine: Yes Other Medical History Have you received the Flu Vaccine for this season: No Have you received the Pneumonia Vaccine: Yes Review of Systems Constitutional Constitutional: Reports body ache(s), Reports fatigue, Denies fever(s), Reports headache(s), Reports poor appetite, Reports lethargy, Reports malaise and Reports weakness Eyes Eyes: Denies blurry vision and Denies diplopia ENT Ears, Nose, Mouth, and Throat: Reports dizziness, Reports headache(s), Reports nasal congestion and Reports sore throat *Cardiovascular Cardiovascular: Denies chest pain and Reports dyspnea *Respiratory Respiratory: Reports cough, Reports dyspnea and Reports wheezing *Gastrointestinal Gastrointestinal: Denies constipation, Denies loose stools, Reports nausea and Reports vomiting *Genitourinary Genitourinary: Denies difficulty voiding and Denies dysuria *Musculoskeletal Musculoskeletal: Denies arthralgias and Reports myalgias *Neurologic Neurologic: Reports dizziness, Reports headache(s) and Reports weakness Endocrine Endocrine: Reports fatigue Allergic/Immunologic Allergic/Immunologic: Reports wheezing Meds Home Medications and Allergies Home Medications ?Medication ?Instructions ?Recorded ?Confirmed ?Type potassium chloride 10 mEq 10 meq PO DAILY 05/04/18 06/09/24 History tablet,extended release nitroglycerin 0.4 mg sublingual 0.4 mg sublingual Q5MINP PRN Chest 05/07/18 06/09/24 Rx tablet Pain ##25 cholecalciferol (vitamin D3) 25 1,000 unit PO DAILY Supplement 05/18/18 06/09/24 History mcg (1,000 unit) capsule vitamin A 2,400 mcg capsule 8,000 unit PO DAILY Supplement 05/18/18 06/09/24 History rosuvastatin 40 mg tablet (Crestor) 40 mg PO HS 02/01/19 06/09/24 History furosemide 20 mg tablet (Lasix) 20 mg PO DAILY 04/13/19 06/09/24 History metoprolol tartrate 25 mg tablet 25 mg PO BID 05/19/19 06/09/24 History albuterol sulfate 90 mcg/actuation 2 puff inhalation QIDP PRN 08/10/23 06/09/24 History aerosol inhaler shortness of air alendronate 70 mg tablet 70 mg PO WEEKLY 01/20/24 06/09/24 History losartan 50 mg tablet 50 mg PO BID 01/20/24 06/09/24 History amlodipine 5 mg tablet 5 mg PO DAILY #90 tabs 02/03/24 06/09/24 Rx omeprazole 20 mg capsule,delayed 20 mg PO DAILYP PRN Acid Reflux 06/09/24 06/09/24 History release New Prescriptions to Start Prescriptions: Allergies Allergy/AdvReac Type Severity Reaction Status Date / Time No Known Drug Allergies Allergy Unknown Verified 02/03/24 09:39 (NKDA) Exam Data for Last 24 hours Vital signs and Labs for Last 24 Hours: Temp Pulse Resp BP Pulse Ox O2 Del Method 97.9 F 56 L 16 167/69 H 96 Room Air 06/09/24 12:11 06/09/24 12:11 06/09/24 12:11 06/09/24 12:11 06/09/24 11:31 06/09/24 12:11 Laboratory Results - last 24 hr 06/09/24 09:25: WBC 6.2, RBC 4.74, Hgb 15.1, Hct 40.4, MCV 85.2, MCH 31.7 H, MCHC 37.3 H, RDW 13.2, Plt Count 228, MPV 7.8, Neut % (Auto) 85.3 H, Lymph % (Auto) 8.7 L, [place] % (Auto) 5.3, Eos % (Auto) 0.2, Baso % (Auto) 0.5, Neut # (Auto) 5.3, Lymph # (Auto) 0.5 L, [place] # (Auto) 0.3, Eos # (Auto) 0.0, Baso # (Auto) 0.0, Total Counted 100, Neutrophils % (Manual) 86 H, Lymphocytes % (Manual) 10, Monocytes % (Manual) 4, Platelet Estimate Normal, RBC Morphology Normal, Sodium 119 L, Potassium 2.7 L*, Chloride 83 L, Carbon Dioxide 27, Anion Gap 11.7, BUN 6 L, Creatinine 0.70, Estimated Creat Clear 41, Estimated GFR 82, Est GFR ( Amer) 99, Glucose 169 H, Calcium 8.9, Total Bilirubin 0.9, AST 33, ALT 18, Alkaline Phosphatase 193 H, Total Protein 7.2, Albumin 4.4, Globulin 2.8, Albumin/Globulin Ratio 1.6, Lipase 223, HIV 1&2 Antibody Rapid Nonreactive 06/09/24 11:05: Urine Color Yellow, Urine Appearance Sl cloudy, Urine pH 8.0, Ur Specific [place] 1.015, Urine Protein Trace, Urine Glucose (UA) Trace, Urine Ketones Negative, Urine Blood Trace-i, Urine Nitrate Negative, Urine Bilirubin Negative, Urine Urobilinogen 1.0, Ur Leukocyte Esterase Negative, Urine RBC Occasional, Urine WBC None, Ur Squamous Epith Cells Occasional, Amorphous Sediment 2+, Urine Bacteria 2+ I & O for Last 24 hours: Intake & Output 06/07/24 06/08/24 06/09/24 06/10/24 11:59 11:59 11:59 11:59 Weight 118 lb Constitutional Constitutional: no acute distress *Routine HEENT Exam Head: Present normocephalic and atraumatic Eye: Present EOMI and PERRL ENT: Present mucous membranes dry *Routine Neck Exam Neck: Present supple and full ROM *Routine Respiratory Exam Respiratory: Present wheezes; Absent crackles *Routine Cardiovascular Exam Cardiovascular: Present RRR *Routine Abdominal Exam Abdominal: Present soft and normoactive bowel sounds; Absent tenderness *Routine Rectal Exam Rectal:: deferred *Routine Genitalia Exam Genitalia:: deferred *Routine Extremities Exam Extremities: Absent cyanosis, clubbing or edema *Routine Skin Exam Skin: Present intact; Absent erythema *Routine Neurological Exam Neurological: Present alert and oriented X3 Assessment and Plan *Assessment and plan (1) Vomiting: Status: Acute Category: Medical Code(s): R11.10 - Vomiting, unspecified (2) Acute hypokalemia: Status: Acute Category: Medical Code(s): E87.6 - Hypokalemia (3) Acute hyponatremia: Status: Acute Category: Medical Code(s): E87.1 - Hypo-osmolality and hyponatremia (4) Bronchitis: Status: Acute Category: Medical Code(s): J40 - Bronchitis, not specified as acute or chronic (5) HTN (hypertension): Status: Chronic Qualifiers: Hypertension type: essential hypertension Qualified Code(s): I10 - Essential (primary) hypertension Category: Medical Code(s): I10 - Essential (primary) hypertension (6) Anxiety: Status: Chronic Category: Medical Code(s): F41.9 - Anxiety disorder, unspecified (7) GERD (gastroesophageal reflux disease): Status: Acute Qualifiers: Esophagitis presence: esophagitis presence not specified Qualified Code(s): K21.9 - Gastro-esophageal reflux disease without esophagitis Category: Medical Code(s): K21.9 - Gastro-esophageal reflux disease without esophagitis (8) HLD (hyperlipidemia): Status: Chronic Qualifiers: Hyperlipidemia type: mixed hyperlipidemia Qualified Code(s): E78.2 - Mixed hyperlipidemia Category: Medical Code(s): E78.5 - Hyperlipidemia, unspecified (9) CAD (coronary artery disease): Status: Chronic Qualifiers: Associated angina: without angina Coronary Disease-Associated Artery/Lesion type: [place] artery [place] vs. transplanted heart: [place] heart Qualified Code(s): I25.10 - Atherosclerotic heart disease of [place] coronary artery without angina pectoris Category: Medical Code(s): I25.10 - Atherosclerotic heart disease of [place] coronary artery without angina pectoris Plan Her potassium is being replaced and she has been started on IVF's and zofran. Will get a CXR and a respiratory panel as well.
--- NOTE | 2024-06-09 13:11 | XR_ITS ---
FINAL REPORT TECHNIQUE: Chest PA & Lateral CLINICAL HISTORY: Wheezing COMPARISON: 05/18/2023 FINDINGS: 2 views of the chest were performed. The heart size is normal. The mediastinum is within normal limits. There is no acute cardiopulmonary process. There are no pleural effusions. There is no pneumothorax. The bony thorax appears intact. IMPRESSION: No acute cardiopulmonary process. Reviewed, Interpreted and Dictated by Jace Menezes MD Transcribed by Marjan Bird Authenticated and . [facility]
--- NOTE | 2024-06-09 13:26 | HMH.ITSTN ---
Pt is getting potassium, nurse to call when finished
[2024-06-09 14:48] LABS: Adenovirus,PCR Not Detected (NotDetected); Bordetella Pertussis Not Detected (NotDetected); Chlamydophila Pneumoniae, PCR Not Detected (NotDetected); Coronavirus 19, PCR Not Detected (NotDetected); Coronavirus 229E Not Detected (NotDetected); Coronavirus NL63 Not Detected (NotDetected); Coronavirus OC43 Not Detected (NotDetected); Coronovirus HKU1,PCR Not Detected (NotDetected); Human Metapneumovirus Not Detected (NotDetected); Influenza A, PCR Not Detected (NotDetected); Influenza AH1, 2009 Not Detected (NotDetected); Influenza AH1, PCR Not Detected (NotDetected); Influenza AH3,PCR Not Detected (NotDetected); Influenza B, PCR Not Detected (NotDetected); Mycoplasma Pneumoniae, PCR Not Detected (NotDetected); Parainfluenza 1, PCR Not Detected (NotDetected); Parainfluenza 2, PCR Not Detected (NotDetected); Parainfluenza 3, PCR Not Detected (NotDetected); Parainfluenza 4, PCR Not Detected (NotDetected); Respiratory Syncytial Virus Not Detected (NotDetected); Rhinovirus/Enterovirus Not Detected (NotDetected)
[2024-06-09 18:19] LABS: Chloride 88 mmol/L (98-107); Potassium 3.1 mmoL/L (3.5-5.1); Sodium 122 mmol/L (136-145)
[2024-06-09 18:22] LABS: Blood Urea Nitrogen 4 mg/dl (7-17); Creatinine Clearance Estimated 41 mL/min (50-200); Estimated Glomerular Filt Rate 97 ml/min (>60); GFR (African American) 118 ML/MIN (>60)
[2024-06-09 18:23] LABS: Anion Gap 10.1 mEq/L (5-15); Calcium 8.6 mg/dl (8.4-10.2); Carbon Dioxide 27 mmol/L (22.0-30.0); Glucose 150 mg/dl (74-100)
[2024-06-09 19:15] LABS: Hemoglobin A1C 6.9 % (4.0-6.0)
[2024-06-09] MEDS: METOPROLOL TARTRATE 25MG TABLET 25 MG PO (20:21)
[2024-06-09] MEDS: POTASSIUM CHLORIDE 20MEQ TAB 20 MEQ PO (20:21)
[2024-06-10] VITALS (12 sets, daily range): BP systolic 140–176; BP diastolic 63–106; PULSE 53–78; RESP 16–18; TEMP 36.2–37.1; O2SAT 91–97; BMI 19.8
[2024-06-10] MEDS: 0.9 % SODIUM CHLORIDE 1000ML 1,000 ML 80 ML IV (04:39)
--- NOTE | 2024-06-10 05:03 | PC.NURSE ---
73 yo female pt is A/O X 3. She has not had any N/V/D this shift. She has denied pain, SOA or any discomfort. Pt up to BR with standby assist. VS have been WNL for pt and she has slept on and off during the night. Pt does report some [employer] cough and noted to have expiratory wheezing throughout.
[2024-06-10 05:24] LABS: HCV Ab Non Reactive (Non Reactive)
[2024-06-10 08:05] LABS: Albumin Level 3.7 g/dl (3.5-5.0); Chloride 90 mmol/L (98-107); Sodium 122 mmol/L (136-145)
[2024-06-10 08:08] LABS: Alanine Aminotransferase 16 U/L (12-78); Albumin/Globulin Ratio 1.5 (1.1-1.8); Alkaline Phosphatase 156 U/L (38-126); Aspartate Amino Transferase 29 U/L (14-36); Bilirubin,Total 0.8 mg/dl (0.2-1.3); Blood Urea Nitrogen 3 mg/dl (7-17); Carbon Dioxide 26 mmol/L (22.0-30.0); Creatinine Clearance Estimated 41 mL/min (50-200); Estimated Glomerular Filt Rate 97 ml/min (>60); GFR (African American) 118 ML/MIN (>60); Globulin 2.4 g/dL (1.3-3.2); Total Protein,Serum 6.1 g/dl (6.3-8.2)
[2024-06-10 08:09] LABS: Calcium 8.5 mg/dl (8.4-10.2); Glucose 133 mg/dl (74-100)
--- NOTE | 2024-06-10 08:12 | P.PN_ITS ---
Subjective *Date: 06/10/24 *Time: 09:30 Interval history: Patient is feeling better this am. She was able to tolerate dinner and breakfast this am. She has not had any further vomiting and did have a normal BM this am. Medical Exam Vital signs and Labs for Last 24 Hours: Vital Signs Temp Pulse Pulse Resp BP BP Pulse Ox 06/10/24 06:57 06/10/24 05:00 06/10/24 04:00 55 L 06/10/24 04:00 98.3 F 60 18 144/63 H 91 L 06/10/24 03:00 06/10/24 01:00 06/10/24 00:00 97.7 F 59 L 16 142/69 H 93 L 06/10/24 00:00 53 L 06/09/24 23:00 06/09/24 21:00 06/09/24 20:00 92 L 06/09/24 20:00 62 06/09/24 19:45 97.6 F 65 18 131/62 92 L 06/09/24 18:37 06/09/24 17:00 06/09/24 16:00 98 F 60 20 149/72 H 96 06/09/24 16:00 60 06/09/24 15:00 06/09/24 14:00 97.8 F 60 19 168/76 H 96 06/09/24 13:00 06/09/24 12:11 97.9 F 56 L 16 167/69 H 06/09/24 11:31 56 L 22 167/69 H 96 06/09/24 11:08 59 L 22 151/64 H 95 06/09/24 10:30 55 L 137/62 96 06/09/24 10:00 57 L 152/70 H 96 06/09/24 09:30 59 L 161/77 H 95 06/09/24 09:03 97.9 F 61 18 151/65 H 95 O2 Del Method 06/10/24 06:57 Room Air 06/10/24 05:00 Room Air 06/10/24 04:00 06/10/24 04:00 Room Air 06/10/24 03:00 Room Air 06/10/24 01:00 Room Air 06/10/24 00:00 Room Air 06/10/24 00:00 06/09/24 23:00 Room Air 06/09/24 21:00 Room Air 06/09/24 20:00 Room Air 06/09/24 20:00 06/09/24 19:45 Room Air 06/09/24 18:37 Room Air 06/09/24 17:00 Room Air 06/09/24 16:00 Room Air 06/09/24 16:00 06/09/24 15:00 Room Air 06/09/24 14:00 Room Air 06/09/24 13:00 Room Air 06/09/24 12:11 Room Air 06/09/24 11:31 Room Air 06/09/24 11:08 06/09/24 10:30 06/09/24 10:00 06/09/24 09:30 06/09/24 09:03 Room Air Intake and Output 06/09/24 06/10/24 06/10/24 19:59 03:59 11:59 Intake Total 540 / 1040 500 / 1040 Output Total 0 / 0 0 / 0 Balance 540 / 1040 500 / 1040 Intake: Intake, Oral Amount 540 / 540 Intake, Total IV Amount 500 / 500 0.9 % Sodium Chloride 1000ML 1, 400 / 400 000 ml @ 80 mls/hr IV .[id number] [facility] Rx#:[id number] KCl 20mEq/100ml 100 ml @ 50 mls 100 / 100 /hr IV Q2H [facility] Rx#:[id number] Output: Output, Urine Amount 0 / 0 0 / 0 Other: Number of Voids 1 Number of Unmeasured Voids 1 1 Weight 117 lb 6 oz 118 lb 14.4 oz Patient Weight 06/10/24 11:59 Weight 118 lb 14.4 oz Laboratory Results - last 24 hr 06/09/24 09:25: WBC 6.2, RBC 4.74, Hgb 15.1, Hct 40.4, MCV 85.2, MCH 31.7 H, MCHC 37.3 H, RDW 13.2, Plt Count 228, MPV 7.8, Neut % (Auto) 85.3 H, Lymph % (Auto) 8.7 L, [place] % (Auto) 5.3, Eos % (Auto) 0.2, Baso % (Auto) 0.5, Neut # (Auto) 5.3, Lymph # (Auto) 0.5 L, [place] # (Auto) 0.3, Eos # (Auto) 0.0, Baso # (Auto) 0.0, Total Counted 100, Neutrophils % (Manual) 86 H, Lymphocytes % (Manual) 10, Monocytes % (Manual) 4, Platelet Estimate Normal, RBC Morphology Normal, Sodium 119 L, Potassium 2.7 L*, Chloride 83 L, Carbon Dioxide 27, Anion Gap 11.7, BUN 6 L, Creatinine 0.70, Estimated Creat Clear 41, Estimated GFR 82, Est GFR ( Amer) 99, Glucose 169 H, Calcium 8.9, Total Bilirubin 0.9, AST 33, ALT 18, Alkaline Phosphatase 193 H, Total Protein 7.2, Albumin 4.4, Globulin 2.8, Albumin/Globulin Ratio 1.6, Lipase 223, Hepatitis C Antibody Non reactive, HIV 1&2 Antibody Rapid Nonreactive 06/09/24 11:05: Urine Color Yellow, Urine Appearance Sl cloudy, Urine pH 8.0, Ur Specific [place] 1.015, Urine Protein Trace, Urine Glucose (UA) Trace, Urine Ketones Negative, Urine Blood Trace-i, Urine Nitrate Negative, Urine Bilirubin Negative, Urine Urobilinogen 1.0, Ur Leukocyte Esterase Negative, Urine RBC Occasional, Urine WBC None, Ur Squamous Epith Cells Occasional, Amorphous Sediment 2+, Urine Bacteria 2+ 06/09/24 14:48: Chlamy pneumoniae PCR Not detected, Adenovirus (PCR) Not detected, B. pertussis DNA (PCR) Not detected, Coronavirus OC43 (PCR) Not detected, Coronavirus HKU1 (PCR) Not detected, Coronavirus 229E (PCR) Not detected, SARS-CoV-2 (PCR) Not detected, Coronavirus NL63 (PCR) Not detected, Human Metapneumovir PCR Not detected, Influenza A (H1) PCR Not detected, Influ A (H1N1/09) PCR Not detected, Influenza A (H3) PCR Not detected, Influenza Type A (PCR) Not detected, Influenza Type B (PCR) Not detected, M. pneumoniae (PCR) Not detected, Parainfluenza 1 (PCR) Not detected, Parainfluenza 2 (PCR) Not detected, Parainfluenza 3 (PCR) Not detected, Parainfluenza 4 (PCR) Not detected, RSV (PCR) Not detected, Entero/Rhino (PCR) Not detected 06/09/24 17:49: Sodium 122 L, Potassium 3.1 L, Chloride 88 L, Carbon Dioxide 27, Anion Gap 10.1, BUN 4 L D, Creatinine 0.60, Estimated Creat Clear 41, Estimated GFR 97, Est GFR ( Amer) 118, Glucose 150 H, Hemoglobin A1c 6.9 H, Calcium 8.6 06/10/24 07:45: Chloride 90 L I & O for Labs for Last 24 Hours: Intake & Output 06/07/24 06/08/24 06/09/24 06/10/24 11:59 11:59 11:59 11:59 Intake Total 1040 / 1040 Output Total 0 / 0 Balance 1040 / 1040 Weight 118 lb 118 lb 14.4 oz Constitutional: Present no acute distress Respiratory: Present CTA bilaterally Cardiac: Present Reg Rate and Rhythm GI: Present soft; Absent distention or tenderness Extremities: Absent edema Skin: Present intact Neuro: Present alert, awake and oriented x 3 Assessment and Plan *Assessment and plan (1) Vomiting: Status: Acute Category: Medical Code(s): R11.10 - Vomiting, unspecified (2) Acute hypokalemia: Status: Acute Category: Medical Code(s): E87.6 - Hypokalemia (3) Acute hyponatremia: Status: Acute Category: Medical Code(s): E87.1 - Hypo-osmolality and hyponatremia (4) Bronchitis: Status: Acute Category: Medical Code(s): J40 - Bronchitis, not specified as acute or chronic (5) HTN (hypertension): Status: Chronic Qualifiers: Hypertension type: essential hypertension Qualified Code(s): I10 - Essential (primary) hypertension Category: Medical Code(s): I10 - Essential (primary) hypertension (6) Anxiety: Status: Chronic Category: Medical Code(s): F41.9 - Anxiety disorder, unspecified (7) GERD (gastroesophageal reflux disease): Status: Acute Qualifiers: Esophagitis presence: esophagitis presence not specified Qualified Code(s): K21.9 - Gastro-esophageal reflux disease without esophagitis Category: Medical Code(s): K21.9 - Gastro-esophageal reflux disease without esophagitis (8) HLD (hyperlipidemia): Status: Chronic Qualifiers: Hyperlipidemia type: mixed hyperlipidemia Qualified Code(s): E78.2 - Mixed hyperlipidemia Category: Medical Code(s): E78.5 - Hyperlipidemia, unspecified (9) CAD (coronary artery disease): Status: Chronic Qualifiers: Associated angina: without angina Coronary Disease-Associated Artery/Lesion type: [place] artery [place] vs. transplanted heart: [place] heart Qualified Code(s): I25.10 - Atherosclerotic heart disease of [place] coronary artery without angina pectoris Category: Medical Code(s): I25.10 - Atherosclerotic heart disease of [place] coronary artery without angina pectoris Plan Still awaiting labs this am. She may be able to discharge today. She is wheezing so will give a neb today. Her CXR was normal. If nebs help, she may need them at home.
[2024-06-10] MEDS: ALBUTEROL 0.083% 2.5 MG/3 ML NEB IH (09:09)
[2024-06-10] MEDS: METOPROLOL TARTRATE 25 MG PO ×2 (09:13→20:12)
[2024-06-10] MEDS: LOSARTAN 50 MG 1 EACH PO ×2 (09:13→23:52)
[2024-06-10] MEDS: AMLODIPINE 5 MG PO (09:13)
[2024-06-10] MEDS: POTASSIUM CHLORIDE 20MEQ TAB 20 MEQ PO ×3 (09:18→20:12)
[2024-06-10] MEDS: KCl 20mEq/100ml 100 ML 50 MEQ IV (09:54)
[2024-06-10] MEDS: METFORMIN 500MG TABLET 500 MG PO (10:18)
[2024-06-10] MEDS: IPRATROPIUM/ALBUTEROL 3 ML NEB IH ×2 (13:58→19:11)
--- NOTE | 2024-06-10 16:35 | PC.NURSE ---
PT IS RESTING IN BED. ALERT AND ORIENTED X4. NO N/V THIS SHIFT. AMBULATES TO THE BATHROOM STANDBY ASSIST. NO COMPLAINTS OF DISCOMFORT OR SOA. WILL CONTINUE TO MONITOR.
[2024-06-10 17:58] LABS: Chloride 90 mmol/L (98-107)
[2024-06-10 17:59] LABS: Potassium 3.4 mmoL/L (3.5-5.1); Sodium 122 mmol/L (136-145)
[2024-06-10 18:01] LABS: Blood Urea Nitrogen 3 mg/dl (7-17); Creatinine Clearance Estimated 41 mL/min (50-200); Estimated Glomerular Filt Rate 97 ml/min (>60); GFR (African American) 118 ML/MIN (>60)
[2024-06-10 18:02] LABS: Anion Gap 11.4 mEq/L (5-15); Calcium 8.9 mg/dl (8.4-10.2); Carbon Dioxide 24 mmol/L (22.0-30.0); Glucose 126 mg/dl (74-100)
[2024-06-11] VITALS: PULSE 62
[2024-06-11 04:00] VITALS: BP 138/90; PULSE 60; PULSE 63; RESP 17; TEMP 36.8; O2SAT 95; BMI 21.2
[2024-06-11] MEDS: ONDANSETRON 4MG ODT 4 MG SL (05:39)
[2024-06-11] MEDS: 0.9 % SODIUM CHLORIDE 1000ML 1,000 ML 80 ML IV (05:58)
[2024-06-11 06:03] VITALS: PULSE 62; PULSE 63; O2SAT 96
[2024-06-11] MEDS: IPRATROPIUM/ALBUTEROL 3 ML NEB IH ×2 (06:03→10:02)
--- NOTE | 2024-06-11 06:27 | PC.NURSE ---
Pt A&OX4 and has tolerated room air. She did complain of nausea once this shift and was given Zofran. Pt states feeling much better after taking med. She has ambulated to the bathroom with standby assist. No complaints at this time, call light within reach.
[2024-06-11] MEDS: METFORMIN 500MG TABLET 500 MG PO (06:51)
[2024-06-11 06:52] LABS: Alanine Aminotransferase 19 U/L (12-78); Albumin Level 3.9 g/dl (3.5-5.0); Albumin/Globulin Ratio 1.5 (1.1-1.8); Alkaline Phosphatase 188 U/L (38-126); Anion Gap 11.4 mEq/L (5-15); Aspartate Amino Transferase 36 U/L (14-36); Bilirubin,Total 0.8 mg/dl (0.2-1.3); Calcium 8.8 mg/dl (8.4-10.2); Carbon Dioxide 23 mmol/L (22.0-30.0); Chloride 93 mmol/L (98-107); Creatinine Clearance Estimated 44 mL/min (50-200); Estimated Glomerular Filt Rate 120 ml/min (>60); GFR (African American) 146 ML/MIN (>60); Globulin 2.6 g/dL (1.3-3.2); Glucose 93 mg/dl (74-100); Potassium 3.4 mmoL/L (3.5-5.1); Sodium 124 mmol/L (136-145); Total Protein,Serum 6.5 g/dl (6.3-8.2)
[2024-06-11 06:59] LABS: Blood Urea Nitrogen < 2 mg/dl (7-17)
[2024-06-11 08:00] VITALS: BP 138/56; PULSE 66; PULSE 70; RESP 17; TEMP 36.8; O2SAT 96
[2024-06-11] MEDS: AMLODIPINE 5 MG PO (08:11)
[2024-06-11] MEDS: METOPROLOL TARTRATE 25 MG PO (08:11)
[2024-06-11] MEDS: POTASSIUM CHLORIDE 20MEQ TAB 20 MEQ PO (08:11)
[2024-06-11] MEDS: LOSARTAN 50 MG 1 EACH PO (08:13)
--- NOTE | 2024-06-11 09:52 | EXP.ACUTE.PN ---
Subjective *Date: 06/11/24 *Time: 09:52 Interval history: She feels good this morning. Her clinical status is much improved. Her sodium is still low at 124. Her potassium is 3.4. The adrenal lesion is noted as a likely adrenal adenoma. Her breathing has improved with nebulizer treatments. We discussed home use of inhalers. I will add Neelima. Medical Exam Vital signs and Labs for Last 24 Hours: Vital Signs Temp Pulse Pulse Resp BP Pulse Ox O2 Del Method 06/11/24 08:00 98.2 F 66 17 138/56 L 96 Room Air 06/11/24 06:40 Room Air 06/11/24 06:03 62 06/11/24 06:03 63 06/11/24 06:03 96 Room Air 06/11/24 05:00 Room Air 06/11/24 04:00 60 06/11/24 04:00 98.2 F 63 17 138/90 95 Room Air 06/11/24 03:00 Room Air 06/11/24 01:00 Room Air 06/11/24 00:00 62 06/10/24 23:30 98.7 F 63 18 172/74 H 96 Room Air 06/10/24 23:00 Room Air 06/10/24 21:00 Room Air 06/10/24 20:00 Room Air 06/10/24 20:00 59 L 06/10/24 19:12 97.1 F L 63 17 147/70 H 97 Room Air 06/10/24 19:11 60 06/10/24 19:11 62 06/10/24 18:35 Room Air 06/10/24 16:29 Room Air 06/10/24 16:00 60 06/10/24 16:00 Room Air 06/10/24 16:00 97.8 F 60 16 140/64 95 Room Air 06/10/24 15:00 Room Air 06/10/24 13:58 78 06/10/24 13:58 77 06/10/24 13:00 Room Air 06/10/24 12:00 60 06/10/24 10:55 Room Air Intake and Output 06/10/24 06/11/24 06/11/24 19:59 03:59 11:59 Intake Total 2648 / 3528 500 / 3528 380 / 3528 Output Total 0 / 0 0 / 0 Balance 2648 / 3528 500 / 3528 380 / 3528 Intake: Intake, Oral Amount 590 / 970 380 / 970 Intake, Total IV Amount 2057 500 / 2558 0.9 % Sodium Chloride 1000ML 1, 2057 500 / 2557 000 ml @ 80 mls/hr IV .[id number] [facility] Rx#:[id number] Output: Output, Urine Amount 0 / 0 0 / 0 Other: Number of Unmeasured Voids 1 1 Number of Bowel Movements 1 Weight 127 lb 1.6 oz Patient Weight 06/11/24 11:59 Weight 127 lb 1.6 oz Laboratory Results - last 24 hr 06/10/24 17:45: Sodium 122 L, Potassium 3.4 L, Chloride 90 L, Carbon Dioxide 24, Anion Gap 11.4, BUN 3 L, Creatinine 0.60, Estimated Creat Clear 41, Estimated GFR 97, Est GFR ( Amer) 118, Glucose 126 H, Calcium 8.9 06/11/24 05:31: Sodium 124 L, Potassium 3.4 L, Chloride 93 L, Carbon Dioxide 23, Anion Gap 11.4, BUN < 2 L D, Creatinine 0.50 L, Estimated Creat Clear 44, Estimated GFR 120, Est GFR ( Amer) 146 D, Glucose 93 D, Calcium 8.8, Total Bilirubin 0.8, AST 36, ALT 19, Alkaline Phosphatase 188 H, Total Protein 6.5, Albumin 3.9, Globulin 2.6, Albumin/Globulin Ratio 1.5 I & O for Labs for Last 24 Hours: Intake & Output 06/08/24 06/09/24 06/10/24 06/11/24 11:59 11:59 11:59 11:59 Intake Total 1280 / 1280 3528 / 3528 Output Total 0 / 0 0 / 0 Balance 1280 / 1280 3528 / 3528 Weight 118 lb 118 lb 14.4 oz 127 lb 1.6 oz Microbiology Reports for the Last 24 Hours: Microbiology 06/09/24 11:05 Urine,Clean Catch Urine Culture - Final No growth. Head: Present normocephalic Neck: Present normal inspection Respiratory: Present decreased breath sounds and CTA bilaterally (Much improved minimal wheezing.) Cardiac: Present Reg Rate and Rhythm GI: Present soft; Absent tenderness Rectal (female): Present deferred (female): Present deferred Extremities: Present edema (Minimal) Skin: Present intact Neuro: Present alert and oriented x 3 Assessment and Plan *Assessment and plan (1) Acute hypokalemia: Status: Acute Category: Medical Code(s): E87.6 - Hypokalemia (2) Acute hyponatremia: Status: Acute Category: Medical Code(s): E87.1 - Hypo-osmolality and hyponatremia (3) Vomiting: Status: Acute Category: Medical Code(s): R11.10 - Vomiting, unspecified (4) Nausea: Status: Acute Category: Medical Code(s): R11.0 - Nausea (5) Bronchitis: Status: Acute Category: Medical Code(s): J40 - Bronchitis, not specified as acute or chronic (6) Type 2 diabetes mellitus: Status: Acute Category: Medical Code(s): E11.9 - Type 2 diabetes mellitus without complications (7) HTN (hypertension): Status: Chronic Qualifiers: Hypertension type: essential hypertension Qualified Code(s): I10 - Essential (primary) hypertension Category: Medical Code(s): I10 - Essential (primary) hypertension (8) HLD (hyperlipidemia): Status: Chronic Qualifiers: Hyperlipidemia type: mixed hyperlipidemia Qualified Code(s): E78.2 - Mixed hyperlipidemia Category: Medical Code(s): E78.5 - Hyperlipidemia, unspecified (9) CAD (coronary artery disease): Status: Chronic Qualifiers: Coronary Disease-Associated Artery/Lesion type: [place] artery [place] vs. transplanted heart: [place] heart Associated angina: without angina Qualified Code(s): I25.10 - Atherosclerotic heart disease of [place] coronary artery without angina pectoris Category: Medical Code(s): I25.10 - Atherosclerotic heart disease of [place] coronary artery without angina pectoris (10) Adrenal adenoma: Status: Acute Category: Medical Code(s): D35.00 - Benign neoplasm of unspecified adrenal gland Plan Discharged with follow-up in 2 days. Electrolytes will be rechecked at that point. She will be discharged on potassium 20 mEq twice a day. Losartan will be decreased to 25 mg twice a day. Furosemide will not be restarted at this point. Breztri will be added two inhlations twice a day. Metformin 500 mg will be added for her newly diagnosed type 2 diabetes
[2024-06-11 10:02] VITALS: PULSE 63; O2SAT 96
--- NOTE | 2024-06-17 08:42 | P.DS_ITS ---
General Admission date:: 06/09/24 Discharge date: 06/11/24 HPI HPI HPI: Ms. Pickard is a 73yo female who began feeling poorly over the weekend. She states she was fatigued and had nausea and a cough. She began wheezing and continued to feel poorly. Her nausea worsened last night and then she began vomiting this am. She states she vomited 4 times and became very weak. She denies any diarrhea. She presented to the ER and was found to have hypokalemia. She was given potassium and started on IVF's and will be admitte. Hospital Course Hospital Course Hospital Course: The patient's potassium was replaced and she was started on IV fluids and Zofran for nausea. A chest x-ray and respiratory panel were both ordered. By 06/10/2024, she was feeling better. She had had no further vomiting. She was still hyponatremic and hypokalemic, but both had improved slightly. She continued to wheeze and nebs were ordered. Her chest x-ray showed nothing acute. Another round of potassium was given and she was started on 20 meq of potassium 3 times daily. An A1c was checked due to elevated glucose levels and was 6.9, therefore she was a newly diagnosed diabetic. By 06/11/2024, she was much better. Her sodium was still low at 124 and her potassium was 3.4. The adrenal lesion noted on imaging was likely an adrenal adenoma. Her breathing improved with nebulizer treatments. She was stable to be discharged home and Breztri was added as well as potassium 20 meq twice a day. She was also started on metformin for her newly diagnosed type 2 diabetes. Her furosemide will be discontinued due to hypokalemia. Exam Data for Last 24 hours Vital signs and Labs for Last 24 Hours: Temp Pulse Resp BP Pulse Ox O2 Del Method 98.2 F 63 17 138/56 L 96 Room Air 06/11/24 08:00 06/11/24 10:02 06/11/24 08:00 06/11/24 08:00 06/11/24 10:02 06/11/24 10:02 Narrative: Constitutional Constitutional: no acute distress *Routine HEENT Exam Head: Present normocephalic and atraumatic Eye: Present EOMI and PERRL ENT: Present mucous membranes dry *Routine Neck Exam Neck: Present supple and full ROM *Routine Respiratory Exam Respiratory: Present wheezes; Absent crackles *Routine Cardiovascular Exam Cardiovascular: Present RRR *Routine Abdominal Exam Abdominal: Present soft and normoactive bowel sounds; Absent tenderness *Routine Rectal Exam Rectal:: deferred *Routine Genitalia Exam Genitalia:: deferred *Routine Extremities Exam Extremities: Absent cyanosis, clubbing or edema *Routine Skin Exam Skin: Present intact; Absent erythema *Routine Neurological Exam Neurological: Present alert and oriented X3 DS: Diagnosis Discharge Diagnosis (1) Acute hypokalemia: Status: Acute Code(s): E87.6 - Hypokalemia (2) Acute hyponatremia: Status: Acute Code(s): E87.1 - Hypo-osmolality and hyponatremia (3) Vomiting: Status: Resolved Code(s): R11.10 - Vomiting, unspecified (4) Nausea: Status: Resolved Code(s): R11.0 - Nausea (5) Bronchitis: Status: Inactive Code(s): J40 - Bronchitis, not specified as acute or chronic (6) Type 2 diabetes mellitus: Status: Acute Code(s): E11.9 - Type 2 diabetes mellitus without complications (7) HTN (hypertension): Status: Chronic Code(s): I10 - Essential (primary) hypertension Qualifiers: Hypertension type: essential hypertension Qualified Code(s): I10 - Essential (primary) hypertension (8) HLD (hyperlipidemia): Status: Chronic Code(s): E78.5 - Hyperlipidemia, unspecified Qualifiers: Hyperlipidemia type: mixed hyperlipidemia Qualified Code(s): E78.2 - Mixed hyperlipidemia (9) CAD (coronary artery disease): Status: Chronic Code(s): I25.10 - Atherosclerotic heart disease of [place] coronary artery without angina pectoris Qualifiers: Coronary Disease-Associated Artery/Lesion type: [place] artery [place] vs. transplanted heart: [place] heart Associated angina: without angina Qualified Code(s): I25.10 - Atherosclerotic heart disease of [place] coronary artery without angina pectoris (10) Adrenal adenoma: Status: Acute Code(s): D35.00 - Benign neoplasm of unspecified adrenal gland Meds Home Medications and Allergies Home Medications ?Medication ?Instructions ?Recorded ?Confirmed ?Type nitroglycerin 0.4 mg sublingual 0.4 mg sublingual Q5MINP PRN Chest 05/07/18 06/09/24 Rx tablet Pain ##25 cholecalciferol (vitamin D3) 25 1,000 unit PO DAILY Supplement 05/18/18 06/09/24 History mcg (1,000 unit) capsule rosuvastatin 40 mg tablet (Crestor) 40 mg PO HS 02/01/19 06/09/24 History metoprolol tartrate 25 mg tablet 25 mg PO BID 05/19/19 06/09/24 History albuterol sulfate 90 mcg/actuation 2 puff inhalation QIDP PRN 08/10/23 06/09/24 History aerosol inhaler shortness of air alendronate 70 mg tablet 70 mg PO WEEKLY 01/20/24 06/09/24 History amlodipine 5 mg tablet 5 mg PO DAILY #90 tabs 02/03/24 06/09/24 Rx omeprazole 20 mg capsule,delayed 20 mg PO DAILYP PRN Acid Reflux 06/09/24 06/09/24 History release budesonide 160 mcg-glycopyr 9 2 inh inhalation BID #10.7 grams 06/11/24 Rx mcg-formot 4.8 mcg/actuation HFA inhaler (Breztri Aerosphere) losartan 25 mg tablet 25 mg PO BID #60 tabs 06/11/24 Rx metformin 500 mg tablet 500 mg PO DAILY #30 tabs 06/11/24 Rx potassium chloride 20 mEq 20 meq PO BID #60 tabs 06/11/24 Rx tablet,extended release New Prescriptions to Start Prescriptions: [id number] [Breztri Aerosphere] Stephon Cates losartan Stephon Cates metformin Stephon Cates potassium chloride Stephon Cates Allergies Allergy/AdvReac Type Severity Reaction Status Date / Time No Known Drug Allergies Allergy Unknown Verified 02/03/24 09:39 (NKDA) Discharge Plan Disposition Patient Disposition: Home, Self-Care Follow up Plan Follow up with: Stephon Cates MD [Primary Care Provider] - 06/13/24 (please call for appointment) Prescriptions/Medication Reconciliation: New losartan 25 mg tablet 25 mg PO BID Qty: 60 0RF potassium chloride 20 mEq tablet extended release 20 meq PO BID Qty: 60 1RF Breztri Aerosphere 160-9-4.8 mcg/actuation HFA aerosol inhaler 2 inh inhalation BID Qty: 10.7 2RF metformin 500 mg tablet 500 mg PO DAILY Qty: 30 4RF Continued cholecalciferol (vitamin D3) 1,000 unit capsule 1,000 unit PO DAILY alendronate 70 mg tablet 70 mg PO WEEKLY Patient Comments: TAKE 1 TABLET BY MOUTH ONCE A WEEK. TAKE WITH PLAIN WATER 30 MINUTES BEFORE THE FIRST FOOD, BEVERAGE, OR MEDICINE FOF THE DAY rosuvastatin [Crestor] 40 mg tablet 40 mg PO HS amlodipine 5 mg tablet 5 mg PO DAILY Qty: 90 3RF nitroglycerin 0.4 MG tablet, sublingual 0.4 mg sublingual Q5MINP PRN (Reason: Chest Pain) Qty: 25 0RF metoprolol tartrate 25 MG tablet 25 mg PO BID albuterol sulfate 90 mcg/actuation HFA aerosol inhaler 2 puff inhalation QIDP PRN (Reason: shortness of air) Patient Comments: INHALE 2 PUFFS BY MOUTH 4 TIMES DAILY Rx Instructions: INHALE 2 PUFFS BY MOUTH 4 TIMES DAILY omeprazole 20 mg capsule,delayed release(DR/EC) 20 mg PO DAILYP PRN (Reason: Acid Reflux) Discontinued vitamin A 8,000 unit capsule 8,000 unit PO DAILY furosemide [Lasix] 20 mg tablet 20 mg PO DAILY potassium chloride 10 MEQ tablet extended release 10 meq PO DAILY losartan 50 mg tablet 50 mg PO BID Problem Reconciliation Problems Reviewed?: Yes Patient Discharge Instructions ACTIVITY: Ambulate as tolerated and Limited activity DIET: advance to your usual diet Patient Instructions: DI for Hypokalemia, DI for Nausea -- Adult Print Language: [place]ian Providers Primary Care Provider: Stephon Cates Admit Provider: Stephon Cates Attending Provider: Stephon Cates
== END 2024-06-11 10:50 | disposition home or self-care (01) ==
LOC: ER 11:57 → 2ND 12:00
PROVIDERS: Physician Assistant; Admitting Provider Family Medicine; Emergency Provider Emergency Medicine; PCP Family Medicine; Visit Provider Family Medicine
DX: R11.2 Nausea with vomiting, unspecified (principal); E87.6 Hypokalemia; E87.1 Hypo-osmolality and hyponatremia; J40 Bronchitis, not specified as acute or chronic; I10 Essential (primary) hypertension; F41.9 Anxiety disorder, unspecified; K21.9 Gastro-esophageal reflux disease without esophagitis; E78.2 Mixed hyperlipidemia; I25.10 Atherosclerotic heart disease of native coronary artery without angina pectoris; E11.9 Type 2 diabetes mellitus without complications; D35.00 Benign neoplasm of unspecified adrenal gland; Z79.899 Other long term (current) drug therapy; Z79.84 Long term (current) use of oral hypoglycemic drugs
CPT/HCPCS: 36415; 71046; 80048; 80053; 81001; 83036; 83690; 85007; 85025; 85027; 86803; 87086; 87389; 87633; 93005; 94640; 99291; G0378; J2405; J7030; J7613; J7620; Q0162

== ENCOUNTER 2024-06-21 12:32 | Inpatient (IN) | payer MEDICARE, SELFPAY ==
[2024-06-21] VITALS (8 sets, daily range): BP systolic 134–157; BP diastolic 61–77; PULSE 58–64; RESP 13–24; TEMP 36.5–37.2; O2SAT 96–99; BMI 19.4; BMI 20.5
--- NOTE | 2024-06-21 12:32 | ECG_ITS ---
APPROVED REPORT Exam: Resting ECG HR:64 bpm ECG Measurements Heart Rate 64 AXES SD 267 P 83 QRSd 86 QRS 62 QT 403 T -71 QTc 413 Conclusion Sinus rhythm first-degree AV block, ST depressions and T wave inversions without elevation Electronically signed by : PHIL DENG, 06/21/2024 15:06:16
--- NOTE | 2024-06-21 12:34 | ED_ITS ---
Discharge Plan Disposition Patient Disposition: Admitted Clinical Impressions Clinical Impression: Hyponatremia Discharge ED Provider: Blair Cohn HPI <SMILEY Brown - Last Filed: 06/21/24 21:06> General Chief Complaint: Chest Pain Stated Complaint: chest pain Time Seen by Provider: 06/21/24 12:33 History of Present Illness HPI narrative: Patient presents for evaluation of chest pain and weakness. Patient reports that approximately 3 weeks ago she had a gastroenteritis that actually ended up requiring admission for significant electrolyte derangements including hyponatremia. Her sodium on evaluation at that time was 119. She was ultimately discharged and had follow-up scheduled with Dr. Cates this coming however she is continued to have feel very poorly very weak. This morning she had 2 episodes of brief chest pain and decided to come to the emergency department for evaluation. Patient denies fever chills hemoptysis hematochezia melena nausea vomiting diarrhea dyspnea shortness of breath. Related Data Home Medications ?Medication ?Instructions ?Recorded ?Confirmed cholecalciferol (vitamin D3) 25 1,000 unit PO DAILY 05/18/18 06/21/24 mcg (1,000 unit) capsule rosuvastatin 40 mg tablet (Crestor) 40 mg PO HS 02/01/19 06/21/24 metoprolol tartrate 25 mg tablet 25 mg PO BID 05/19/19 06/21/24 albuterol sulfate 90 mcg/actuation 2 puff inhalation QIDP PRN 08/10/23 06/21/24 aerosol inhaler shortness of air alendronate 70 mg tablet 70 mg PO WEEKLY 01/20/24 06/21/24 omeprazole 20 mg capsule,delayed 20 mg PO DAILYP PRN Acid Reflux 06/09/24 06/21/24 release furosemide 20 mg tablet 20 mg PO DAILY 06/21/24 06/21/24 potassium chloride 10 mEq 20 meq PO TID 06/21/24 06/21/24 capsule,extended release Previous Rx's ?Medication ?Instructions ?Recorded nitroglycerin 0.4 mg sublingual 0.4 mg sublingual Q5MINP PRN Chest 05/07/18 tablet Pain ##25 amlodipine 5 mg tablet 5 mg PO DAILY #90 tabs 02/03/24 budesonide 160 mcg-glycopyr 9 2 inh inhalation BID #10.7 grams 06/11/24 mcg-formot 4.8 mcg/actuation HFA inhaler (Breztri Aerosphere) losartan 25 mg tablet 25 mg PO BID #60 tabs 06/11/24 metformin 500 mg tablet 500 mg PO DAILY #30 tabs 06/11/24 Allergies Allergy/AdvReac Type Severity Reaction Status Date / Time No Known Drug Allergies Allergy Unknown Verified 02/03/24 09:39 (NKDA) [facility] <SMILEY Brown - Last Filed: 06/21/24 21:06> [facility] Disclaimer: The information contained in this section may have been updated after the patient was seen, as this information can be updated by other users. Medical History Bronchitis Renal artery stenosis Abnormal EKG Chest pain at rest Palpitations Ankle swelling determined by examination Lesion of lung Blade duct, cyst Swelling of left hand HHD (hypertensive heart disease) SOB (shortness of breath) URI (upper respiratory infection) STEMI (ST elevation myocardial infarction) Type 2 diabetes mellitus Adrenal adenoma HTN (hypertension) GERD (gastroesophageal reflux disease) Anxiety Allergies Family history of cancer Family history of hyperlipidemia Family history of hypertension Heart attack Dizziness Hypotension HLD (hyperlipidemia) CAD (coronary artery disease) Surgical History History of cataract surgery History of gastric bypass History of appendectomy Stented coronary artery Family History Family history of cancer Family history of hypertension Family history of hyperlipidemia Social History Smoking Status: Current every day smoker tobacco type: cigarettes packs per day: 0 second hand exposure: No alcohol intake: never substance use type: denies use current occupational status: retired Travel in the last 8 weeks: None household members: spouse housing: house caffeine: Yes Other Medical History Have you received the Flu Vaccine for this season: No Have you received the Pneumonia Vaccine: No <SMILEY Brown - Last Filed: 06/21/24 21:06> ROS Obtained: Yes Systems reviewed as appropriate & no additional complaints except as documented Physical Exam <SMILEY Brown - Last Filed: 06/21/24 21:06> General General appearance: alert and in no apparent distress Respiratory Respiratory exam: Present normal lung sounds bilaterally Cardiovascular Cardiovascular exam: Present regular rate Neurological Exam Neurological exam: Present alert and oriented X3 HEART Score <SMILEY Brown - Last Filed: 06/21/24 21:06> HEART Score HEART Score assessment performed?: No History (anamnesis): Slightly suspicious ECG: Non-specific disturbance Age: >65 years Risk factors: 3 or more risk factors Troponin: </= normal limit HEART Score: 5 <Blair Cohn MD - Last Filed: 06/22/24 15:01> HEART Score HEART Score: 5 Critical Care <SMILEY Brown - Last Filed: 06/21/24 21:06> Critical Care Time Critical Care Time: No Medical Decision Making <SMILEY Brown - Last Filed: 06/21/24 21:06> Medical Records Medical records reviewed: Yes I reviewed the patient's medical records. Arya Inquiry Pt receiving controlled substance: No Vital Signs Vital Signs: 06/21/24 12:32 06/21/24 13:00 06/21/24 13:30 Temperature 98.7 F Temperature Source Oral Pulse Rate 58 L 60 Pulse Rate [Left Radial] 64 Respiratory Rate 13 17 Blood Pressure 152/72 H 139/61 Blood Pressure [Right Arm] 157/77 H Blood Pressure Mean [Right Arm] 103 02 Sat by Pulse Oximetry 96 96 96 Oxygen Delivery Method Room Air Room Air Room Air 06/21/24 14:00 06/21/24 14:30 06/21/24 15:00 Temperature Temperature Source Pulse Rate 63 63 Pulse Rate [Left Radial] Respiratory Rate 13 20 Blood Pressure 134/64 138/68 Blood Pressure [Right Arm] Blood Pressure Mean [Right Arm] 02 Sat by Pulse Oximetry 98 99 Oxygen Delivery Method Room Air Room Air Room Air 06/21/24 15:06 Temperature 99.0 F Temperature Source Pulse Rate 63 Pulse Rate [Left Radial] Respiratory Rate 16 Blood Pressure 134/64 Blood Pressure [Right Arm] Blood Pressure Mean [Right Arm] 02 Sat by Pulse Oximetry Oxygen Delivery Method Lab Data Lab results reviewed: Yes I reviewed the patient's lab results. Labs: Lab Results 06/21/24 12:34: WBC 6.3, RBC 4.66, Hgb 14.7, Hct 40.2, MCV 86.1, MCH 31.5 H, M CHC 36.5 H, RDW 13.4, Plt Count 219, MPV 7.4, Neut % (Auto) 77.9, Lymph % (Auto) 13.0, Hardy % (Auto) 7.0, Eos % (Auto) 1.0, Baso % (Auto) 1.0, Neut # (Auto) 4.9, Lymph # (Auto) 0.8, Hardy # (Auto) 0.4, Eos # (Auto) 0.1, Baso # (Auto) 0.1, S odium 120 L, Potassium 3.4 L, Chloride 87 L, Carbon Dioxide 27, Anion Gap 9.4, BUN 7, Creatinine 0.60, Estimated Creat Clear 41, Estimated GFR 97, Est GFR ( Amer) 118, Glucose 148 H, Calcium 9.0, Magnesium 1.7, Total Bilirubin 0.8, AST 37 H, ALT 22, Alkaline Phosphatase 196 H, Troponin I < 0.01, NT-Pro-B Natriuret Pep 1420 H, Total Protein 6.8, Albumin 4.3, Globulin 2.5, Albumin/Globulin Ratio 1.7, Lipase 288, TSH 1.09, Free T4 Index 4.6 L, Thyroxine (T4) 14.5 H, T3 Uptake 32 06/21/24 13:31: Chlamy pneumoniae PCR Not detected, Adenovirus (PCR) Not detected, B. pertussis DNA (PCR) Not detected, Coronavirus OC43 (PCR) Not detected, Coronavirus HKU1 (PCR) Not detected, Coronavirus 229E (PCR) Not detected, SARS-CoV-2 (PCR) Not detected, Coronavirus NL63 (PCR) Not detected, Human Metapneumovir PCR Not detected, Influenza A (H1) PCR Not detected, Influ A (H1N1/09) PCR Not detected, Influenza A (H3) PCR Not detected, Influenza Type A (PCR) Not detected, Influenza Type B (PCR) Not detected, M. pneumoniae (PCR) Not detected, Parainfluenza 1 (PCR) Not detected, Parainfluenza 2 (PCR) Not detected, Parainfluenza 3 (PCR) Not detected, Parainfluenza 4 (PCR) Not detected, RSV (PCR) Not detected, Entero/Rhino (PCR) Not detected 06/21/24 12:34 06/22/24 14:02 Response Orders (Tests/Meds): ED MEDICATIONS Generic Name Dose Route Start Last Admin Trade Name Freq PRN Reason Stop Dose Admin Acetaminophen 650 mg 06/22/24 08:19 Acetaminophen 325mg Tab PO 07/22/24 08:18 Q6HP PRN Fever or Mild Pain (1-3) Albuterol Sulfate 2 puff 06/21/24 17:36 Albuterol-Hfa 90mcg/Puff Inhaler 8gm 07/21/24 17:35 QIDP PRN Shortness Of Breath Carvedilol 6.25 mg 06/22/24 14:10 06/22/24 14:25 Carvedilol 6.25mg Tablet PO 07/22/24 14:09 6.25 mg BID DEMETRIS Administration Sodium Chloride 1,000 mls @ 75 mls/hr 06/21/24 21:30 06/22/24 09:33 Sod Chlor 0.9% 1000ml Bag IV 07/21/24 21:29 75 mls/hr .[id number] DEMETRIS Administration Pat Own Med 2 each 06/22/24 18:00 Beztri Aerospere IH 07/22/24 17:59 BIDRT DEMETRIS Pt Own Med * 1 each 06/22/24 21:00 Rosuvastatin 40 Mg PO 07/22/24 20:59 Tab* HS DEMETRIS Pt Own Med * 1 each 06/22/24 09:00 06/22/24 09:33 Amlodipine 5 Mg Tab* PO 07/22/24 08:59 1 each DAILY DEMETRIS Administration Pt Own Med * 1 each 06/23/24 07:30 Metformin 500 Mg Tab PO 07/23/24 07:29 * DAILY@0730 DEMETRIS Pantoprazole Sodium 40 mg 06/21/24 17:34 Pantoprazole 40mg Tablet PO 07/21/24 17:33 DAILYP PRN ACID REFLUX Potassium Chloride 20 meq 06/21/24 21:00 06/22/24 12:42 Potassium Chloride 20meq Tab PO 07/21/24 20:59 20 meq TID DEMETRIS Administration Vitamin D 25 mcg 06/22/24 09:00 06/22/24 09:33 Cholecalciferol 1,000 Units (25mcg) Tablet PO 07/22/24 08:59 25 mcg DAILY DEMETRIS Administration Discontinued Medications Generic Name Dose Route Start Last Admin Trade Name Alber PRN Reason Stop Dose Admin Acetaminophen 1,000 mg 06/21/24 12:39 06/21/24 12:46 Acetaminophen 500mg Tab PO 06/21/24 12:40 1,000 mg ONCE ONE Administration Amlodipine Besylate 5 mg 06/22/24 09:00 06/22/24 09:46 Amlodipine 5mg Tablet PO 07/22/24 08:59 Not Given DAILY DEMETRIS Atorvastatin Calcium 80 mg 06/21/24 21:00 06/21/24 20:28 Atorvastatin 40mg Tablet PO 07/21/24 20:59 80 mg HS DEMETRIS Administration Belladonna Alkaloids 60 ml 06/21/24 12:39 06/21/24 12:46 Belladonna Alkaloids 60 Ml Ml PO 06/21/24 12:40 60 ml ONCE ONE Administration Sodium Chloride 1,000 mls @ 75 mls/hr 06/21/24 14:15 06/21/24 14:20 Sod Chlor 0.9% 1000ml Bag IV 06/22/24 03:34 75 mls/hr .[id number] ONE Administration Iopamidol 75 ml 06/22/24 09:55 06/22/24 09:57 Iopamidol-370 (76%);100ml Bottle IV 06/22/24 09:56 75 ml ONCE ONE Administration Iopamidol 100 ml 06/22/24 10:55 06/22/24 10:57 Iopamidol-300 (61%) 100ml Vial IV 06/22/24 10:56 100 ml ONCE ONE Administration Protocol Ketorolac Tromethamine 15 mg 06/21/24 12:39 06/21/24 12:47 Ketorolac 30mg/Ml Vial IV 06/21/24 12:40 15 mg ONCE ONE Administration Metformin HCl 500 mg 06/22/24 07:30 06/22/24 07:44 Metformin 500mg Tablet PO 07/22/24 07:29 Not Given DAILY@0730 [facility] Metoprolol Tartrate 25 mg 06/21/24 21:00 06/22/24 09:46 Metoprolol Tartrate 25mg Tablet PO 07/21/24 20:59 Not Given BID [facility] Pt Own Med * 1 each 06/22/24 09:00 06/22/24 09:33 Metoprolol Tart 25 PO 07/22/24 08:59 1 each Mg Tab* BID DEMETRIS Administration Ondansetron HCl 4 mg 06/21/24 12:39 06/21/24 12:47 Ondansetron 4mg/2ml Vial IV 06/21/24 12:40 4 mg ONCE ONE Administration Sodium Chloride 10 ml 06/22/24 09:55 06/22/24 09:57 Sodium Chloride 0.9% 10ml Syr (Rad Only) IV 06/22/24 09:56 10 ml ONCE ONE Administration Sodium Chloride 10 ml 06/22/24 10:55 06/22/24 10:57 Sodium Chloride 0.9% 10ml Syr (Rad Only) IV 06/22/24 10:56 10 ml ONCE ONE Administration ORDERS Category Date Time Status Chest XR 2 view (NOT portable) [XR chest 2V] Stat Exams 06/21/24 12:39 Completed BMP [Basic Metabolic Panel] AMLAB Lab 06/22/24 06:03 Completed BNP [NT Pro Brain Natriuretic Pep.] Stat Lab 06/21/24 12:34 Completed CBC w/Auto Diff [Complete Blood Count Auto Diff] Stat Lab 06/21/24 12:34 Completed CMP [Comprehensive Metabolic Panel] Stat Lab 06/21/24 12:34 Completed Full Resp Panel w/COVID (H) Routine Lab 06/21/24 13:31 Completed Lipase Stat Lab 06/21/24 12:34 Completed Magnesium Stat Lab 06/21/24 12:34 Completed Thyroid Panel Stat Lab 06/21/24 12:34 Completed Trop I [Troponin I] Stat Lab 06/21/24 12:34 Completed Troponin I Q3H Lab 06/21/24 15:50 Completed Troponin I Q3H Lab 06/21/24 18:56 Completed MDM Narrative Medical Decision Narrative: In summary patient is a 73-year-old female who presents to the emergency department for evaluation of chest pain and asthenia. Patient is hemodynamically stable upon arrival, afebrile. Physical exam is remarkable for no reproducible chest pain on palpation, normal breath sounds normal heart sounds, normal sinus rhythm on the bedside monitor, trace pitting edema in the bilateral dependent extremities Elayne Coma Score 15 patient is awake alert and oriented.. Review of her previous admission shows that she was admitted with a sodium of 119 and discharged with a sodium of 124. Differential diagnosis includes continued electrolyte abnormalities versus ACS etc. Initial workup will be conducted with hematologic labs plain film chest x-ray twelve-lead EKG. Initial interventions include Toradol Tylenol GI cocktail. Initial workup reviewed by me shows that her sodium level is 120 potassium 3.4 troponin is undetectable and her NT proBNP is elevated at 1420 and the remainder of her hematologic labs are nonactionable and her full respiratory panel is negative for all organisms.. Given this I had an interactive discussion with Dr. Laughlin regarding patient management and patient will be admitted to Dr. Cates for further evaluation and care. <Blair Cohn MD - Last Filed: 06/22/24 15:01> Vital Signs Vital Signs: 06/21/24 12:32 06/21/24 13:00 06/21/24 13:30 Temperature 98.7 F Temperature Source Oral Pulse Rate 58 L 60 Pulse Rate [Left Radial] 64 Respiratory Rate 13 17 Blood Pressure 152/72 H 139/61 Blood Pressure [Right Arm] 157/77 H Blood Pressure Mean [Right Arm] 103 02 Sat by Pulse Oximetry 96 96 96 Oxygen Delivery Method Room Air Room Air Room Air 06/21/24 14:00 06/21/24 14:30 06/21/24 15:00 Temperature Temperature Source Pulse Rate 63 63 Pulse Rate [Left Radial] Respiratory Rate 13 20 Blood Pressure 134/64 138/68 Blood Pressure [Right Arm] Blood Pressure Mean [Right Arm] 02 Sat by Pulse Oximetry 98 99 Oxygen Delivery Method Room Air Room Air Room Air 06/21/24 15:06 Temperature 99.0 F Temperature Source Pulse Rate 63 Pulse Rate [Left Radial] Respiratory Rate 16 Blood Pressure 134/64 Blood Pressure [Right Arm] Blood Pressure Mean [Right Arm] 02 Sat by Pulse Oximetry Oxygen Delivery Method Lab Data Labs: Lab Results 06/21/24 12:34: WBC 6.3, RBC 4.66, Hgb 14.7, Hct 40.2, MCV 86.1, MCH 31.5 H, M CHC 36.5 H, RDW 13.4, Plt Count 219, MPV 7.4, Neut % (Auto) 77.9, Lymph % (Auto) 13.0, Hardy % (Auto) 7.0, Eos % (Auto) 1.0, Baso % (Auto) 1.0, Neut # (Auto) 4.9, Lymph # (Auto) 0.8, Hardy # (Auto) 0.4, Eos # (Auto) 0.1, Baso # (Auto) 0.1, S odium 120 L, Potassium 3.4 L, Chloride 87 L, Carbon Dioxide 27, Anion Gap 9.4, BUN 7, Creatinine 0.60, Estimated Creat Clear 41, Estimated GFR 97, Est GFR ( Amer) 118, Glucose 148 H, Calcium 9.0, Magnesium 1.7, Total Bilirubin 0.8, AST 37 H, ALT 22, Alkaline Phosphatase 196 H, Troponin I < 0.01, NT-Pro-B Natriuret Pep 1420 H, Total Protein 6.8, Albumin 4.3, Globulin 2.5, Albumin/Globulin Ratio 1.7, Lipase 288, TSH 1.09, Free T4 Index 4.6 L, Thyroxine (T4) 14.5 H, T3 Uptake 32 06/21/24 13:31: Chlamy pneumoniae PCR Not detected, Adenovirus (PCR) Not detected, B. pertussis DNA (PCR) Not detected, Coronavirus OC43 (PCR) Not detected, Coronavirus HKU1 (PCR) Not detected, Coronavirus 229E (PCR) Not detected, SARS-CoV-2 (PCR) Not detected, Coronavirus NL63 (PCR) Not detected, Human Metapneumovir PCR Not detected, Influenza A (H1) PCR Not detected, Influ A (H1N1/09) PCR Not detected, Influenza A (H3) PCR Not detected, Influenza Type A (PCR) Not detected, Influenza Type B (PCR) Not detected, M. pneumoniae (PCR) Not detected, Parainfluenza 1 (PCR) Not detected, Parainfluenza 2 (PCR) Not detected, Parainfluenza 3 (PCR) Not detected, Parainfluenza 4 (PCR) Not detected, RSV (PCR) Not detected, Entero/Rhino (PCR) Not detected Response Orders (Tests/Meds): ED MEDICATIONS Generic Name Dose Route Start Last Admin Trade Name Freq PRN Reason Stop Dose Admin Acetaminophen 650 mg 06/22/24 08:19 Acetaminophen 325mg Tab PO 07/22/24 08:18 Q6HP PRN Fever or Mild Pain (1-3) Albuterol Sulfate 2 puff 06/21/24 17:36 Albuterol-Hfa 90mcg/Puff Inhaler 8gm IH 07/21/24 17:35 QIDP PRN Shortness Of Breath Carvedilol 6.25 mg 06/22/24 14:10 06/22/24 14:25 Carvedilol 6.25mg Tablet PO 07/22/24 14:09 6.25 mg BID DEMETRIS Administration Sodium Chloride 1,000 mls @ 75 mls/hr 06/21/24 21:30 06/22/24 09:33 Sod Chlor 0.9% 1000ml Bag IV 07/21/24 21:29 75 mls/hr .[id number] DEMETRIS Administration Pat Own Med 2 each 06/22/24 18:00 Beztri Aerospere IH 07/22/24 17:59 BIDRT DEMETRIS Pt Own Med * 1 each 06/22/24 21:00 Rosuvastatin 40 Mg PO 07/22/24 20:59 Tab* HS DEMETRIS Pt Own Med * 1 each 06/22/24 09:00 06/22/24 09:33 Amlodipine 5 Mg Tab* PO 07/22/24 08:59 1 each DAILY DEMETRIS Administration Pt Own Med * 1 each 06/23/24 07:30 Metformin 500 Mg Tab PO 07/23/24 07:29 * DAILY@0730 DEMETRIS Pantoprazole Sodium 40 mg 06/21/24 17:34 Pantoprazole 40mg Tablet PO 07/21/24 17:33 DAILYP PRN ACID REFLUX Potassium Chloride 20 meq 06/21/24 21:00 06/22/24 12:42 Potassium Chloride 20meq Tab PO 07/21/24 20:59 20 meq TID DEMETRIS Administration Vitamin D 25 mcg 06/22/24 09:00 06/22/24 09:33 Cholecalciferol 1,000 Units (25mcg) Tablet PO 07/22/24 08:59 25 mcg DAILY DEMETRIS Administration Discontinued Medications Generic Name Dose Route Start Last Admin Trade Name Freq PRN Reason Stop Dose Admin Acetaminophen 1,000 mg 06/21/24 12:39 06/21/24 12:46 Acetaminophen 500mg Tab PO 06/21/24 12:40 1,000 mg ONCE ONE Administration Amlodipine Besylate 5 mg 06/22/24 09:00 06/22/24 09:46 Amlodipine 5mg Tablet PO 07/22/24 08:59 Not Given DAILY DEMETRIS Atorvastatin Calcium 80 mg 06/21/24 21:00 06/21/24 20:28 Atorvastatin 40mg Tablet PO 07/21/24 20:59 80 mg HS DEMETRIS Administration Belladonna Alkaloids 60 ml 06/21/24 12:39 06/21/24 12:46 Belladonna Alkaloids 60 Ml Ml PO 06/21/24 12:40 60 ml ONCE ONE Administration Sodium Chloride 1,000 mls @ 75 mls/hr 06/21/24 14:15 06/21/24 14:20 Sod Chlor 0.9% 1000ml Bag IV 06/22/24 03:34 75 mls/hr .[id number] ONE Administration Iopamidol 75 ml 06/22/24 09:55 06/22/24 09:57 Iopamidol-370 (76%);100ml Bottle IV 06/22/24 09:56 75 ml ONCE ONE Administration Iopamidol 100 ml 06/22/24 10:55 06/22/24 10:57 Iopamidol-300 (61%) 100ml Vial IV 06/22/24 10:56 100 ml ONCE ONE Administration Protocol Ketorolac Tromethamine 15 mg 06/21/24 12:39 06/21/24 12:47 Ketorolac 30mg/Ml Vial IV 06/21/24 12:40 15 mg ONCE ONE Administration Metformin HCl 500 mg 06/22/24 07:30 06/22/24 07:44 Metformin 500mg Tablet PO 07/22/24 07:29 Not Given DAILY@0730 DEMETRIS Metoprolol Tartrate 25 mg 06/21/24 21:00 06/22/24 09:46 Metoprolol Tartrate 25mg Tablet PO 07/21/24 20:59 Not Given BID DEMETRIS Pt Own Med * 1 each 06/22/24 09:00 06/22/24 09:33 Metoprolol Tart 25 PO 07/22/24 08:59 1 each Mg Tab* BID DEMETRIS Administration Ondansetron HCl 4 mg 06/21/24 12:39 06/21/24 12:47 Ondansetron 4mg/2ml Vial IV 06/21/24 12:40 4 mg ONCE ONE Administration Sodium Chloride 10 ml 06/22/24 09:55 06/22/24 09:57 Sodium Chloride 0.9% 10ml Syr (Rad Only) IV 06/22/24 09:56 10 ml ONCE ONE Administration Sodium Chloride 10 ml 06/22/24 10:55 12/04/24 10:57 Sodium Chloride 0.9% 10ml Syr (Rad Only) IV 06/22/24 10:56 10 ml ONCE ONE Administration ORDERS Category Date Time Status Chest XR 2 view (NOT portable) [XR chest 2V] Stat Exams 06/21/24 12:39 Completed BMP [Basic Metabolic Panel] AMLAB Lab 06/22/24 06:03 Completed BNP [NT Pro Brain Natriuretic Pep.] Stat Lab 06/21/24 12:34 Completed CBC w/Auto Diff [Complete Blood Count Auto Diff] Stat Lab 06/21/24 12:34 Completed CMP [Comprehensive Metabolic Panel] Stat Lab 06/21/24 12:34 Completed Full Resp Panel w/COVID ([facility]) Routine Lab 06/21/24 13:31 Completed Lipase Stat Lab 06/21/24 12:34 Completed Magnesium Stat Lab 06/21/24 12:34 Completed Thyroid Panel Stat Lab 06/21/24 12:34 Completed Trop I [Troponin I] Stat Lab 06/21/24 12:34 Completed Troponin I Q3H Lab 06/21/24 15:50 Completed Troponin I Q3H Lab 06/21/24 18:56 Completed MDM Narrative Medical Decision Narrative: In summary patient is a 73-year-old female who presents to the emergency department for evaluation of chest pain and asthenia. Patient is hemodynamically stable upon arrival, afebrile. Physical exam is remarkable for no reproducible chest pain on palpation, normal breath sounds normal heart sounds, normal sinus rhythm on the bedside monitor, trace pitting edema in the bilateral dependent extremities Elayne Coma Score 15 patient is awake alert and oriented.. Review of her previous admission shows that she was admitted with a sodium of 119 and discharged with a sodium of 124. Differential diagnosis includes continued electrolyte abnormalities versus ACS etc. Initial workup will be conducted with hematologic labs plain film chest x-ray twelve-lead EKG. Initial interventions include Toradol Tylenol GI cocktail. Initial workup reviewed by me shows that her sodium level is 120 potassium 3.4 troponin is undetectable and her NT proBNP is elevated at 1420 and the remainder of her hematologic labs are nonactionable and her full respiratory panel is negative for all organisms.. Given this I had an interactive discussion with Dr. Laughlin regarding patient management and patient will be admitted to Dr. Cates for further evaluation and care. I was consulted by the ANNALISE, and we discussed the complexity of the problems being addressed. I approved the treatment and management plan for this patient's care in the Emergency Department, thus performing a substantive portion of the medical decision making. Blair Cohn MD
--- NOTE | 2024-06-21 12:39 | XR_ITS ---
FINAL REPORT CLINICAL HISTORY: Chest pain COMPARISON: 06/09/2024 FINDINGS: Two views of the chest were obtained. The heart size and pulmonary vascularity are within normal limits. The mediastinum is normal. No acute pulmonary abnormality is identified. There is mild scarring noted. There is no pneumothorax. The bony thorax is intact. IMPRESSION: No active cardiopulmonary disease. Reviewed, Interpreted and Dictated by Rinku Munoz III, MD Transcribed by Marjan Bird Authenticated and [facility]
[2024-06-21] MEDS: BELLADONNA ALKALOIDS 60 ML ML PO (12:46)
[2024-06-21] MEDS: ACETAMINOPHEN 500MG TAB 1000 MG PO (12:46)
[2024-06-21] MEDS: ONDANSETRON 4MG/2ML VIAL 4 MG IV (12:47)
[2024-06-21] MEDS: KETOROLAC 30MG/ML VIAL 15 MG IV (12:47)
[2024-06-21 12:49] LABS: Albumin Level 4.3 g/dl (3.5-5.0); Chloride 87 mmol/L (98-107); Potassium 3.4 mmoL/L (3.5-5.1); Sodium 120 mmol/L (136-145)
[2024-06-21 12:50] LABS: Basophils # 0.1 K/mm3 (0-0.2); Eosinophils # 0.1 K/mm3 (0.0-0.4); Hematocrit 40.2 % (37.0-47.0); Hemoglobin 14.7 g/dL (12.2-16.2); Lymphocytes # 0.8 K/mm3 (0.7-4.5); Mean Corpuscular HGB Conc 36.5 g/dL (31.8-35.4); Mean Corpuscular Hemoglobin 31.5 pg (27.0-31.2); Mean Corpuscular Volume 86.1 fl (81-99); Mean Platelet Volume 7.4 fl (7.4-10.4); Monocytes # 0.4 K/mm3 (0.1-1.0); Neutrophils # 4.9 K/mm3 (1.8-7.8); Neutrophils % 77.9 % (37.0-80.0); Platelet Count 219 K/mm3 (142-424); Red Blood Count 4.66 M/mm3 (4.20-5.40); Red Cell Distribution Width 13.4 % (11.5-17.5); White Blood Count 6.3 K/mm3 (4.8-10.8)
[2024-06-21 12:52] LABS: Alanine Aminotransferase 22 U/L (12-78); Albumin/Globulin Ratio 1.7 (1.1-1.8); Alkaline Phosphatase 196 U/L (38-126); Anion Gap 9.4 mEq/L (5-15); Aspartate Amino Transferase 37 U/L (14-36); Bilirubin,Total 0.8 mg/dl (0.2-1.3); Blood Urea Nitrogen 7 mg/dl (7-17); Carbon Dioxide 27 mmol/L (22.0-30.0); Creatinine Clearance Estimated 41 mL/min (50-200); Estimated Glomerular Filt Rate 97 ml/min (>60); GFR (African American) 118 ML/MIN (>60); Globulin 2.5 g/dL (1.3-3.2); Total Protein,Serum 6.8 g/dl (6.3-8.2)
[2024-06-21 12:53] LABS: Glucose 148 mg/dl (74-100); Magnesium 1.7 mg/dl (1.6-2.3)
--- NOTE | 2024-06-21 12:55 | PC.NURSE ---
I rounded on the pt, no new complaints at this time. no needs voiced. call alarcon in reach.
[2024-06-21 13:01] LABS: Lipase 288 U/L (23-300)
[2024-06-21 13:03] LABS: NT Pro Brain Natriuretic Pep. 1420 pg/mL (0-450)
[2024-06-21 13:10] LABS: Troponin I < 0.01 ng/ml (0.00-0.034)
[2024-06-21 13:19] LABS: Triiodothryronine (T3) Uptake 32 % (23.5-40.5)
[2024-06-21 13:20] LABS: Free Thyroxine Index 4.6 ug/dL (5.93-13.13); T4 (Thyroxine) 14.5 ug/dl (5.53-11.0)
[2024-06-21 13:33] LABS: Thyroid Stimulating Hormone 1.09 uIU/mL (0.465-4.68)
[2024-06-21 13:33] LABS: Adenovirus,PCR Not Detected (NotDetected); Bordetella Pertussis Not Detected (NotDetected); Chlamydophila Pneumoniae, PCR Not Detected (NotDetected); Coronavirus 19, PCR Not Detected (NotDetected); Coronavirus 229E Not Detected (NotDetected); Coronavirus NL63 Not Detected (NotDetected); Coronavirus OC43 Not Detected (NotDetected); Coronovirus HKU1,PCR Not Detected (NotDetected); Human Metapneumovirus Not Detected (NotDetected); Influenza A, PCR Not Detected (NotDetected); Influenza AH1, 2009 Not Detected (NotDetected); Influenza AH1, PCR Not Detected (NotDetected); Influenza AH3,PCR Not Detected (NotDetected); Influenza B, PCR Not Detected (NotDetected); Mycoplasma Pneumoniae, PCR Not Detected (NotDetected); Parainfluenza 1, PCR Not Detected (NotDetected); Parainfluenza 2, PCR Not Detected (NotDetected); Parainfluenza 3, PCR Not Detected (NotDetected); Parainfluenza 4, PCR Not Detected (NotDetected); Respiratory Syncytial Virus Not Detected (NotDetected); Rhinovirus/Enterovirus Not Detected (NotDetected)
--- NOTE | 2024-06-21 13:59 | PC.NURSE ---
PA speaking to Dr. Laughlin
--- NOTE | 2024-06-21 14:15 | PC.NURSE ---
HS aware of admission
[2024-06-21] MEDS: 0.9 % SODIUM CHLORIDE 1000ML 1,000 ML 75 ML IV ×2 (14:20→19:30)
--- NOTE | 2024-06-21 14:22 | PC.NURSE ---
attempted to call report to samantha on second floor. rapid responce was called on another pt, nurse states that she will call back when available.
--- NOTE | 2024-06-21 14:31 | PC.NURSE ---
report called to samantha on second floor
--- NOTE | 2024-06-21 16:15 | [facility].PHAINT1 ---
Pharmacy Intervention Comments: HOME MEDICATIONS VERIFIED VIA OUTPATIENT PHARMACY AND PATIENT INTERVIEW
[2024-06-21 16:27] LABS: Troponin I < 0.01 ng/ml (0.00-0.034)
--- NOTE | 2024-06-21 18:35 | PC.NURSE ---
Dr. Laughlin paged to get med orders. Med orders sent to overnight pharmacy. Reg diet with 1500 ml fluid restriction.
[2024-06-21 19:35] LABS: Troponin I < 0.01 ng/ml (0.00-0.034)
[2024-06-21] MEDS: ATORVASTATIN 40MG TABLET 80 MG PO (20:28)
[2024-06-21] MEDS: METOPROLOL TARTRATE 25MG TABLET 25 MG PO (20:28)
[2024-06-22 04:00] VITALS: BP 135/64; PULSE 60; RESP 15; TEMP 36.5; O2SAT 95; BMI 20.5
[2024-06-22 06:30] LABS: Chloride 94 mmol/L (98-107); Sodium 123 mmol/L (136-145)
[2024-06-22 06:34] LABS: Blood Urea Nitrogen 5 mg/dl (7-17); Calcium 8.5 mg/dl (8.4-10.2); Carbon Dioxide 24 mmol/L (22.0-30.0); Creatinine Clearance Estimated 43 mL/min (50-200); Estimated Glomerular Filt Rate 97 ml/min (>60); GFR (African American) 118 ML/MIN (>60); Glucose 101 mg/dl (74-100)
--- NOTE | 2024-06-22 06:57 | PC.NURSE ---
Received call from lab at 0649 for critical potassium of 3.0; will pass along to dayshift nurse to have Dr Cates address when rounding on patient this am
[2024-06-22 08:00] VITALS: BP 168/74; PULSE 68; RESP 17; TEMP 36.2; O2SAT 97
--- NOTE | 2024-06-22 08:27 | EXP.HP ---
History of Present Illness *Admission Date: 06/22/24 *Reason for visit:: chest pain, hyponatremia *History of present illness: Patient presents for evaluation of chest pain and weakness. Patient reports that approximately 3 weeks ago she had a gastroenteritis that actually ended up requiring admission for significant electrolyte derangements including hyponatremia. Her sodium on evaluation at that time was 119. She was ultimately discharged and had follow-up scheduled with Dr. Cates this coming however she has continued to feel very poorly very weak. This morning she had 2 episodes of brief chest pain and decided to come to the emergency department for evaluation. Patient denies fever chills hemoptysis hematochezia melena nausea vomiting diarrhea dyspnea shortness of breath. (above as per ER physician) The patient states she decided to come sooner to the ER this time as the last time this happened, she began vomiting. She states she stays nauseated most mornings. She has been eating and drinking. Her CP was on the left side but has since resolved. [facility] Disclaimer: The information contained in this section may have been updated after the patient was seen, as this information can be updated by other users. Medical History Bronchitis Renal artery stenosis Abnormal EKG Chest pain at rest Palpitations Ankle swelling determined by examination Lesion of lung Blade duct, cyst Swelling of left hand HHD (hypertensive heart disease) SOB (shortness of breath) URI (upper respiratory infection) STEMI (ST elevation myocardial infarction) Type 2 diabetes mellitus Adrenal adenoma HTN (hypertension) GERD (gastroesophageal reflux disease) Anxiety Allergies Family history of cancer Family history of hyperlipidemia Family history of hypertension Heart attack Dizziness Hypotension HLD (hyperlipidemia) CAD (coronary artery disease) Surgical History History of cataract surgery History of gastric bypass History of appendectomy Stented coronary artery Family History Family history of cancer Family history of hypertension Family history of hyperlipidemia Social History Smoking Status: Current every day smoker tobacco type: cigarettes packs per day: 0 second hand exposure: No alcohol intake: never substance use type: denies use current occupational status: retired Travel in the last 8 weeks: None household members: spouse housing: house caffeine: Yes Other Medical History Have you received the Flu Vaccine for this season: No Have you received the Pneumonia Vaccine: Yes Review of Systems Constitutional Constitutional: Denies body ache(s), Reports fatigue, Denies fever(s), Reports headache(s) and Reports weakness Eyes Eyes: Denies blurry vision and Denies diplopia ENT Ears, Nose, Mouth, and Throat: Reports headache(s), Denies nasal congestion, Denies sore throat and Denies vertigo *Cardiovascular Cardiovascular: Reports chest pain, Denies dyspnea and Denies leg edema *Respiratory Respiratory: Reports cough, Denies dyspnea and Denies wheezing *Gastrointestinal Gastrointestinal: Denies abdominal pain, Denies loose stools, Reports nausea and Denies vomiting *Genitourinary Genitourinary: Denies difficulty voiding and Denies dysuria *Musculoskeletal Musculoskeletal: Denies joint swelling and Denies myalgias *Neurologic Neurologic: Reports headache(s), Denies vertigo and Reports weakness Endocrine Endocrine: Reports fatigue Allergic/Immunologic Allergic/Immunologic: Denies wheezing Meds Home Medications and Allergies Home Medications ?Medication ?Instructions ?Recorded ?Confirmed ?Type nitroglycerin 0.4 mg sublingual 0.4 mg sublingual Q5MINP PRN Chest 05/07/18 06/21/24 Rx tablet Pain ##25 cholecalciferol (vitamin D3) 25 1,000 unit PO DAILY 05/18/18 06/21/24 History mcg (1,000 unit) capsule rosuvastatin 40 mg tablet (Crestor) 40 mg PO HS 02/01/19 06/21/24 History metoprolol tartrate 25 mg tablet 25 mg PO BID 05/19/19 06/21/24 History albuterol sulfate 90 mcg/actuation 2 puff inhalation QIDP PRN 08/10/23 06/21/24 History aerosol inhaler shortness of air alendronate 70 mg tablet 70 mg PO WEEKLY 01/20/24 06/21/24 History amlodipine 5 mg tablet 5 mg PO DAILY #90 tabs 02/03/24 06/21/24 Rx omeprazole 20 mg capsule,delayed 20 mg PO DAILYP PRN Acid Reflux 06/09/24 06/21/24 History release budesonide 160 mcg-glycopyr 9 2 inh inhalation BID #10.7 grams 06/11/24 06/21/24 Rx mcg-formot 4.8 mcg/actuation HFA inhaler (Breztri Aerosphere) losartan 25 mg tablet 25 mg PO BID #60 tabs 06/11/24 06/21/24 Rx metformin 500 mg tablet 500 mg PO DAILY #30 tabs 06/11/24 06/21/24 Rx furosemide 20 mg tablet 20 mg PO DAILY 06/21/24 06/21/24 History potassium chloride 10 mEq 20 meq PO TID 06/21/24 06/21/24 History capsule,extended release New Prescriptions to Start Prescriptions: Allergies Allergy/AdvReac Type Severity Reaction Status Date / Time No Known Drug Allergies Allergy Unknown Verified 02/03/24 09:39 (NKDA) Exam Data for Last 24 hours Vital signs and Labs for Last 24 Hours: Temp Pulse Resp BP Pulse Ox O2 Del Method 97.2 F L 68 17 168/74 H 97 Room Air 06/22/24 08:00 06/22/24 08:00 06/22/24 08:00 06/22/24 08:00 06/22/24 08:00 06/22/24 08:00 Laboratory Results - last 24 hr 06/21/24 12:34: WBC 6.3, RBC 4.66, Hgb 14.7, Hct 40.2, MCV 86.1, MCH 31.5 H, MCHC 36.5 H, RDW 13.4, Plt Count 219, MPV 7.4, Neut % (Auto) 77.9, Lymph % (Auto) 13.0, [place] % (Auto) 7.0, Eos % (Auto) 1.0, Baso % (Auto) 1.0, Neut # (Auto) 4.9, Lymph # (Auto) 0.8, [place] # (Auto) 0.4, Eos # (Auto) 0.1, Baso # (Auto) 0.1, Sodium 120 L, Potassium 3.4 L, Chloride 87 L, Carbon Dioxide 27, Anion Gap 9.4, BUN 7, Creatinine 0.60, Estimated Creat Clear 41, Estimated GFR 97, Est GFR ( Amer) 118, Glucose 148 H, Calcium 9.0, Magnesium 1.7, Total Bilirubin 0.8, AST 37 H, ALT 22, Alkaline Phosphatase 196 H, Troponin I < 0.01, NT-Pro-B Natriuret Pep 1420 H, Total Protein 6.8, Albumin 4.3, Globulin 2.5, Albumin/Globulin Ratio 1.7, Lipase 288, TSH 1.09, Free T4 Index 4.6 L, Thyroxine (T4) 14.5 H, T3 Uptake 32 06/21/24 13:31: Chlamy pneumoniae PCR Not detected, Adenovirus (PCR) Not detected, B. pertussis DNA (PCR) Not detected, Coronavirus OC43 (PCR) Not detected, Coronavirus HKU1 (PCR) Not detected, Coronavirus 229E (PCR) Not detected, SARS-CoV-2 (PCR) Not detected, Coronavirus NL63 (PCR) Not detected, Human Metapneumovir PCR Not detected, Influenza A (H1) PCR Not detected, Influ A (H1N1/09) PCR Not detected, Influenza A (H3) PCR Not detected, Influenza Type A (PCR) Not detected, Influenza Type B (PCR) Not detected, M. pneumoniae (PCR) Not detected, Parainfluenza 1 (PCR) Not detected, Parainfluenza 2 (PCR) Not detected, Parainfluenza 3 (PCR) Not detected, Parainfluenza 4 (PCR) Not detected, RSV (PCR) Not detected, Entero/Rhino (PCR) Not detected 06/21/24 15:50: Troponin I < 0.01 06/21/24 18:56: Troponin I < 0.01 06/22/24 06:03: Sodium 123 L, Potassium 3.0 L, Chloride 94 L, Carbon Dioxide 24, Anion Gap 8.0, BUN 5 L D, Creatinine 0.60, Estimated Creat Clear 43, Estimated GFR 97, Est GFR ( Amer) 118, Glucose 101 H D, Calcium 8.5 I & O for Last 24 hours: Intake & Output 06/19/24 06/20/24 06/21/24 06/22/24 11:59 11:59 11:59 11:59 Intake Total 1519 / 1519 Output Total 0 / 0 Balance 1519 / 1519 Weight 123 lb 3 oz Constitutional Constitutional: no acute distress *Routine HEENT Exam Head: Present normocephalic and atraumatic Eye: Present EOMI and PERRL ENT: Present mucous membranes moist *Routine Neck Exam Neck: Present supple and full ROM *Routine Respiratory Exam Respiratory: Present CTA bilaterally *Routine Cardiovascular Exam Cardiovascular: Present RRR *Routine Abdominal Exam Abdominal: Present soft and normoactive bowel sounds; Absent tenderness *Routine Rectal Exam Rectal:: deferred *Routine Genitalia Exam Genitalia:: deferred *Routine Extremities Exam Extremities: Absent cyanosis, clubbing or edema *Routine Skin Exam Skin: Present intact; Absent erythema *Routine Neurological Exam Neurological: Present alert and oriented X3 H&P: Result Impressions CXR - nothing acute Assessment and Plan *Assessment and plan (1) Acute hyponatremia: Status: Acute Category: Medical Code(s): E87.1 - Hypo-osmolality and hyponatremia (2) Acute hypokalemia: Status: Acute Category: Medical Code(s): E87.6 - Hypokalemia (3) Adrenal adenoma: Status: Acute Category: Medical Code(s): D35.00 - Benign neoplasm of unspecified adrenal gland (4) Type 2 diabetes mellitus: Status: Acute Category: Medical Code(s): E11.9 - Type 2 diabetes mellitus without complications (5) HTN (hypertension): Status: Chronic Qualifiers: Hypertension type: essential hypertension Qualified Code(s): I10 - Essential (primary) hypertension Category: Medical Code(s): I10 - Essential (primary) hypertension (6) HLD (hyperlipidemia): Status: Chronic Qualifiers: Hyperlipidemia type: mixed hyperlipidemia Qualified Code(s): E78.2 - Mixed hyperlipidemia Category: Medical Code(s): E78.5 - Hyperlipidemia, unspecified (7) CAD (coronary artery disease): Status: Chronic Qualifiers: Associated angina: without angina Coronary Disease-Associated Artery/Lesion type: [place] artery [place] vs. transplanted heart: [place] heart Qualified Code(s): I25.10 - Atherosclerotic heart disease of [place] coronary artery without angina pectoris Category: Medical Code(s): I25.10 - Atherosclerotic heart disease of [place] coronary artery without angina pectoris Plan Sodium has improved slightly with IVF's. Potassium has decreased but oral potassium has been ordered TID. Patient is supposed to have imaging on Thursday to check on a possible adrenal adenoma. Will see if this can be done today.
--- NOTE | 2024-06-22 08:38 | CT_ITS ---
FINAL REPORT TECHNIQUE: Pre-and postcontrast axial CT images of the abdomen were obtained. Coronal and sagittal reformatted images were also obtained and reviewed. This study was performed with techniques to keep radiation doses as low as reasonably achievable (ALARA). Individualized dose reduction techniques using automated exposure control or adjustment of mA and/or kV according to the patient's size were employed. CLINICAL HISTORY: Hyponatremia COMPARISON: 08/12/2023 FINDINGS: CT ABDOMEN WITH AND WITHOUT CONTRAST: The lung bases are clear. The heart is normal in size. There are numerous masses in the liver, the largest in the lateral segment of the left hepatic lobe measuring 32 mm in size. These are new since the prior exam of July 2023. These are slightly inhomogeneous masses, and worrisome for metastases. There is collapse of the gallbladder, with wall thickening, a nonspecific finding. The spleen is unremarkable. There is a 29 mm left adrenal mass, which is stable when compared to prior examinations. The pancreas has an unremarkable appearance. Small bilateral renal cysts are present. Moderate vascular calcifications are identified. There is no free fluid or adenopathy. No mass or abnormal fluid collection is seen. Precontrast imaging demonstrates no evidence of nephrolithiasis. There are widespread areas of faint sclerosis noted in the bones of the pelvis and the spine, which are worrisome for metastatic disease as well. IMPRESSION: Numerous masses in the liver, as described above. The overall appearance is most concerning for metastatic disease. These are new since the prior CT of July 2023. There are widespread areas of faint sclerosis noted in the bones of the pelvis and spine, also worrisome for metastatic disease. These results were called to Ama Recinos, the ordering provider, 06/22/2024 at 2 PM. Reviewed, Interpreted and Dictated by Rinku Munoz III, MD Transcribed by Sherita Lomax Authenticated and [facility]
[2024-06-22] MEDS: POTASSIUM CHLORIDE 20MEQ TAB 20 MEQ PO ×2 (09:33→12:42)
[2024-06-22] MEDS: CHOLECALCIFEROL 1,000 UNITS (25MCG) TABLET 25 MCG PO (09:33)
[2024-06-22] MEDS: METOPROLOL TARTRATE 25 MG 1 EACH PO (09:33)
[2024-06-22] MEDS: 0.9 % SODIUM CHLORIDE 1000ML 1,000 ML 75 ML IV (09:33)
[2024-06-22] MEDS: PT OWN MED *AMLODIPINE 5 MG TAB 1 EACH PO (09:33)
[2024-06-22 09:54] LABS: HIV (1&2) Antibody Rapid NONREACTIVE (NONREACTIVE)
--- NOTE | 2024-06-22 09:56 | CT_ITS ---
FINAL REPORT TECHNIQUE: Thin-section axial CT images were performed through the temporal bones after contrast administration. Coronal and sagittal reformatted images were submitted. This study was performed with techniques to keep radiation doses as low as reasonably achievable, (ALARA). Individualized dose reduction techniques using automated exposure control or adjustment of mA and/or kV according to the patient's size were employed. CLINICAL HISTORY: hyponatremia ATTENTION PITUITARY GLAND COMPARISON: None FINDINGS: CT TEMPORAL BONES AND SELLA: CT examination was performed with attention to the temporal bones. The sella turcica is also visualized on this examination. The pituitary gland measures 4 mm in height. There is no evidence of a sellar mass or a suprasellar mass. The temporal bones reveal normal-appearing inner and middle ear cavities. The internal and external auditory canals are unremarkable. The mastoid air cells are well aerated. IMPRESSION: The pituitary gland measures 4 mm in height, and there is no evidence of a mass in the sella or the suprasellar region. Normal-appearing temporal bones. Reviewed, Interpreted and Dictated by Rinku Munoz III, MD Transcribed by Sherita Lomax Authenticated and [facility]
[2024-06-22] MEDS: IOPAMIDOL-370 (76%);100ML BOTTLE 75 ML IV (09:57)
[2024-06-22] MEDS: SODIUM CHLORIDE 0.9% 10ML SYR (RAD ONLY) 10 ML IV ×2 (09:57→10:57)
[2024-06-22] MEDS: IOPAMIDOL-300 (61%) 100ML VIAL 100 ML IV (10:57)
--- NOTE | 2024-06-22 13:49 | PC.NURSE ---
Pt. is aox4, up ad fito, ' on RA, 20G L AC NS @ 75, regular diet.
[2024-06-22] MEDS: CARVEDILOL 6.25MG TABLET 6.25 MG PO ×2 (14:25→20:20)
[2024-06-22 14:27] LABS: Chloride 98 mmol/L (98-107); Sodium 128 mmol/L (136-145)
[2024-06-22 14:28] LABS: Potassium 3.9 mmoL/L (3.5-5.1)
[2024-06-22 14:30] LABS: Blood Urea Nitrogen 4 mg/dl (7-17); Creatinine Clearance Estimated 43 mL/min (50-200); Estimated Glomerular Filt Rate 97 ml/min (>60); GFR (African American) 118 ML/MIN (>60)
[2024-06-22 14:31] LABS: Anion Gap 7.9 mEq/L (5-15); Calcium 8.7 mg/dl (8.4-10.2); Carbon Dioxide 26 mmol/L (22.0-30.0); Glucose 127 mg/dl (74-100)
[2024-06-22 16:00] VITALS: BP 138/66; PULSE 68; RESP 19; TEMP 36.7; O2SAT 93
--- NOTE | 2024-06-22 16:53 | HMH.ITSTN ---
spoke with Mario Alberto allen RN and made him aware that the next day a PA was here to do a CT biopsy was Sunday 06/24. Also made aware that if pt was on any blood thiners, they need to be stopped, he stated she was not on any. Said he would check MD notes on estimated length of stay in regards to if biopsy will still be done as inpatient status on thursday.
[2024-06-22 20:00] VITALS: BP 141/70; PULSE 67; RESP 16; TEMP 36.7; O2SAT 94
[2024-06-22] MEDS: POTASSIUM CHLORIDE 10MEQ CAPSULE.ER 20 MEQ PO (20:20)
[2024-06-23 04:00] VITALS: BP 150/68; PULSE 67; RESP 18; TEMP 36.6; O2SAT 94; BMI 20.3
[2024-06-23] MEDS: 0.9 % SODIUM CHLORIDE 1000ML 1,000 ML 75 ML IV ×2 (04:26→23:11)
[2024-06-23 06:15] LABS: HCV Ab Non Reactive (Non Reactive)
[2024-06-23] MEDS: PT OWN MED *AMLODIPINE 5 MG TAB 1 EACH PO (07:37)
[2024-06-23] MEDS: CHOLECALCIFEROL 1,000 UNITS (25MCG) TABLET 25 MCG PO (07:37)
[2024-06-23] MEDS: CARVEDILOL 6.25MG TABLET 6.25 MG PO ×2 (07:37→20:50)
[2024-06-23 08:00] VITALS: BP 150/72; PULSE 69; RESP 17; TEMP 36.6; O2SAT 96
[2024-06-23] MEDS: POTASSIUM CHLORIDE 10MEQ CAPSULE.ER 20 MEQ PO ×3 (08:06→20:50)
--- NOTE | 2024-06-23 08:43 | EXP.ACUTE.PN ---
Subjective *Date: 06/23/24 *Time: 10:45 Interval history: The patient's only complaint today is of constipation. She states she has not had a bowel movement since Thursday and this is causing irritation of her hemorrhoids. She is requesting MiraLAX and a glycerin suppository. She denies any other pain and states she slept off and on last night. She was n.p.o. this morning for a liver biopsy, however the biopsy is now not going to be done until tomorrow. Medical Exam Vital signs and Labs for Last 24 Hours: Vital Signs Temp Pulse Resp BP Pulse Ox O2 Del Method 06/23/24 08:00 97.8 F 69 17 150/72 H 96 Room Air 06/23/24 07:49 Room Air 06/23/24 07:43 Room Air 06/23/24 05:00 Room Air 06/23/24 04:00 97.9 F 67 18 150/68 H 94 L Room Air 06/23/24 03:00 Room Air 06/23/24 01:00 Room Air 06/22/24 23:00 Room Air 06/22/24 20:57 Room Air 06/22/24 20:20 Room Air 06/22/24 20:00 98.0 F 67 16 141/70 H 94 L Room Air 06/22/24 17:28 Room Air 06/22/24 16:00 98.1 F 68 19 138/66 93 L Room Air 06/22/24 15:51 Room Air 06/22/24 13:34 Room Air 06/22/24 11:43 Room Air 06/22/24 09:00 Room Air Intake and Output 06/22/24 06/23/24 06/23/24 19:59 03:59 11:59 Intake Total 705 / 2181 1083 / 2181 393 / 2181 Output Total 0 / 0 0 / 0 0 / 0 Balance 705 / 2181 1083 / 2181 393 / 2181 Intake: Intake, Oral Amount 180 / 705 525 / 705 Intake, Total IV Amount 525 / 1476 558 / 1476 393 / 1476 0.9 % Sodium Chloride 1000ML 1, 525 / 1476 558 / 1476 393 / 1476 000 ml @ 75 mls/hr IV .[id number] [facility] Rx#:[id number] Output: Output, Urine Amount 0 / 0 0 / 0 0 / 0 Other: Number of Unmeasured Voids 1 1 1 Weight 122 lb 1.6 oz Patient Weight 06/23/24 11:59 Weight 122 lb 1.6 oz Laboratory Results - last 24 hr 06/22/24 09:00: Hepatitis C Antibody Non reactive, HIV 1&2 Antibody Rapid Nonreactive 06/22/24 14:02: Sodium 128 L, Potassium 3.9 D, Chloride 98, Carbon Dioxide 26, Anion Gap 7.9, BUN 4 L, Creatinine 0.60, Estimated Creat Clear 43, Estimated GFR 97, Est GFR ( Amer) 118, Glucose 127 H D, Calcium 8.7 I & O for Labs for Last 24 Hours: Intake & Output 06/20/24 06/21/24 06/22/24 06/23/24 11:59 11:59 11:59 11:59 Intake Total 1519 / 1519 2181 / 2181 Output Total 0 / 0 0 / 0 Balance 1519 / 1519 2181 / 2181 Weight 123 lb 3 oz 122 lb 1.6 oz Constitutional: Present no acute distress Respiratory: Present rhonchi Cardiac: Present Reg Rate and Rhythm GI: Present soft; Absent distention or tenderness Extremities: Absent edema Skin: Present intact Neuro: Present alert, awake and oriented x 3 Assessment and Plan *Assessment and plan (1) Acute hyponatremia: Status: Acute Category: Medical Code(s): E87.1 - Hypo-osmolality and hyponatremia (2) Acute hypokalemia: Status: Acute Category: Medical Code(s): E87.6 - Hypokalemia (3) Liver lesion: Status: Acute Category: Medical Code(s): K76.9 - Liver disease, unspecified (4) Constipation: Status: Acute Category: Medical Code(s): K59.00 - Constipation, unspecified (5) Adrenal adenoma: Status: Acute Category: Medical Code(s): D35.00 - Benign neoplasm of unspecified adrenal gland (6) Type 2 diabetes mellitus: Status: Acute Category: Medical Code(s): E11.9 - Type 2 diabetes mellitus without complications (7) HTN (hypertension): Status: Chronic Qualifiers: Hypertension type: essential hypertension Qualified Code(s): I10 - Essential (primary) hypertension Category: Medical Code(s): I10 - Essential (primary) hypertension (8) HLD (hyperlipidemia): Status: Chronic Qualifiers: Hyperlipidemia type: mixed hyperlipidemia Qualified Code(s): E78.2 - Mixed hyperlipidemia Category: Medical Code(s): E78.5 - Hyperlipidemia, unspecified (9) CAD (coronary artery disease): Status: Chronic Qualifiers: Associated angina: without angina Coronary Disease-Associated Artery/Lesion type: [place] artery [place] vs. transplanted heart: [place] heart Qualified Code(s): I25.10 - Atherosclerotic heart disease of [place] coronary artery without angina pectoris Category: Medical Code(s): I25.10 - Atherosclerotic heart disease of [place] coronary artery without angina pectoris Plan Sodium and potassium are improving. Patient is scheduled for a biopsy of liver lesions tomorrow. Will order MiraLAX and a suppository today for constipation.
[2024-06-23] MEDS: BISACODYL 10MG SUPP 10 MG RC (09:15)
[2024-06-23] MEDS: POLYETHYLENE GLYCOL 3350 17 GM PACKET PO (09:16)
--- OUTSIDE RECORDS SUMMARY | 2024-06-23 09:58 | XMS_ITS ---
[facility] [address] [facility] [address] 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 [address] [place] [id number] 06/23/2024 Jm Cates PLAN OF TREATMENT Next Appt Details Provider Name:Jm Quintanilla er, 07/25/2024 01:30:00 PM, [address] [facility], [address], [place], [phone],
--- OUTSIDE RECORDS SUMMARY | 2024-06-23 09:58 | XMS_ITS ---
[facility] [address] [facility] [address] [facility] [address] [place] [phone] Care Team Providers Care Head Of Marketing Analytics Name Role Phone Jm Cates Primary Care Provider [phone] Report Encounters Encounter Location Date Provider Diagnosis [facility] [address] [facility] [address] [place] [id number] 06/22/2024 Jm Cates PLAN OF TREATMENT Next Appt Details Provider Name:Jm Quintanilla er, 07/25/2024 01:30:00 PM, [address] [facility], [address], [place], [phone],
--- OUTSIDE RECORDS SUMMARY | 2024-06-23 09:59 | XMS_ITS | Patient Health Record ---
[facility] Organization [facility] Address [address] [place] [id number] Care Team Providers Care Wheel Polisher Name Role Phone Jm Cates Primary Care Provider [phone] Grisel Ama Unavailable [phone] ALLERGIES Allergen (clinical drug ingredient) Drug/Non Drug Allergy documented on EMR Reaction Allergy Type Onset Date Status cefdinir Cefdinir rash Drug Allergy Active RESULTS Component Value Reference Range Notes CBC Venipuncture (in house) Reviewed date:01/07/2024 04:44:06 PM Interpretation: Performing Lab: Notes/Report: wbc 7.5 3.5 - 10 lymph 22.1% 15 - 50 mid 5.7% 2 - 15 gran 72.2% 35 - 80 rbc 4.65 3.5 - 5.5 hgb 15.0 11.5 - 16.5 hct 44.9 35 - 55 mcv 96.5 75 - 100 mch 32.2 25 - 35 mchc 33.4 31 - 38 platlet 198 100 - 400 P-Vitamin B12 Reviewed date:01/08/2024 08:16:02 AM Interpretation:290 Performing Lab: Notes/Report: Test performed by [facility] [address] [place], [place] [address] [place] [address] Pietro Maier MD, Quality Compliance Coordinator CLIA: [id number] Vitamin B12 [phone] pg/mL P-Comprehensive Metabolic Pa ayo (CMP) Reviewed date:01/08/2024 08:16:02 AM Interpretation:gluc 113 Performing Lab: Notes/Report: Test performed by [facility] [address] [place] [address] [address], [place] [address] Pietro Maier MD, Quality Compliance Coordinator CLIA: [id number] Sodium 141 135-145 mEq/L Potassium 3.7 3.5-5.3 mEq/L Chloride 98 97-108 mEq/L CO2 31 22-32 mEq/L Glucose 113 65-99 mg/dL BUN 10 8-23 mg/dL Creatinine 0.92 0.50-1.00 mg/dL Calcium 10.1 8.6-10.4 mg/dL eGFR by Creatinine 65 >59 mL/min/1.73m2 Protein 7.3 6.0-8.3 g/dL Albumin 4.7 3.5-5.3 g/dL Alkaline Phosphatase 119 35-121 IU/L ALT (SGPT) 12 <5-47 IU/L AST (SGOT) 18 <5-40 IU/L Bilirubin, Total 0.5 <0.2-1.2 mg/dL A/G Ratio 1.8 1.1-2.5 mg/dL P-Lipid Panel Reviewed date:01/08/2024 08:16:02 AM Interpretation:trig 228 Performing Lab: Notes/Report: Test performed by [facility] [address] [place] [address] , [address], [place] [address] Pietro Maier MD, Quality Compliance Coordinator CLIA: [id number] Cholesterol 141 <200 mg/dL Triglycerides 228 <150 mg/dL HDL Cholesterol 41 >39 mg/dL Cholesterol / HDL Ratio 3.44 0.00-4.44 Ratio Non-HDL Cholesterol 100 <130 mg/dL LDL Cholesterol (Calculation) 54 <130 mg/dL LDL Cholesterol Levels* Less than 100 mg/dL Optimal 100 to 129 mg/dL Near Optimal/ Above Optimal 130 to 159 mg/dL Borderline High 160 to 189 mg/dL High 190 mg/dL and above Very High * Categories as recommended by the 2004 ATPIII guidelines LDL/HDL Ratio 1.3 <3.3 Ratio LDL Cholesterol Patient History Test Date: 01/07/2024 LDL Results: 54 Units: mg/dL % Change: - P-TSH reflex to FT4 Reviewed date:01/08/2024 08:16:02 AM Interpretation:Normal Performing Lab: Notes/Report: Test performed by [facility], [address] , [address], [place] [address] Pietro Maier MD, Quality Compliance Coordinator CLIA: [id number] TSH reflex to FT4 1.44 0.43-5.25 mU/L DEXA Hip and Spine Reviewed date:06/10/2024 09:27:50 AM Interpretation:osteoporosis of l-spine and left hip Performing Lab: Notes/Report: osteoporosis of l-spine and left hip Dexa results osteoporosis of l-spine and left hip Mammogram Reviewed date:05/09/2024 10:53:55 AM Interpretation:Negative, annual f/u Performing Lab: Notes/Report: Negative, annual f/u result Negative, annual f/u CT SCAN : CHEST, LUNG CANCER SCREENING LOW DOSE Reviewed date:05/06/2024 01:22:15 PM Interpretation:stable, left adrenal adenoma Performing Lab: Notes/Report: stable, left adrenal adenoma CBC Venipuncture (in house) Reviewed date:06/14/2024 10:26:54 AM Interpretation: Performing Lab: Notes/Report: wbc 6.1 3.5 - 10 lymph 12.4% 15 - 50 mid 3.8% 2 - 15 gran 83.8% 35 - 80 rbc 4.70 3.5 - 5.5 hgb 14.6 11.5 - 16.5 hct 41.9 35 - 55 mcv 89.2 75 - 100 mch 31.2 25 - 35 mchc 34.9 31 - 38 platlet 228 100 - 400 P-Basic Metabolic Panel (BMP ) Reviewed date:06/14/2024 10:29:02 AM Interpretation: Performing Lab: Notes/Report: Test performed by [facility] [address] [place] [address] , [address], [place] [address] Pietro Maier MD, Quality Compliance Coordinator CLIA: [id number] Sodium 121 135-145 mmol/L Potassium 3.7 3.5-5.3 mmol/L Chloride 87 97-108 mmol/L CO2 24 22-32 mmol/L Glucose 137 65-99 mg/dL BUN 7 8-23 mg/dL Creatinine 0.56 0.50-1.00 mg/dL Calcium 9.5 8.6-10.4 mg/dL eGFR by Creatinine 95 >59 mL/min/1.73m2 M-HIV (1&2) Antibody Rapid Reviewed date:06/22/2024 01:16:52 PM Interpretation: Performing Lab: Notes/Report: [id number] NONREACTIVE NONREACTIVE HCVABRFXRNA Reviewed date:06/23/2024 09:00:46 AM Interpretation:Negative Performing Lab: Notes/Report: HCVAB2 Non Reactive Non Reactive H-BMP Reviewed date:06/23/2024 09:00:46 AM Interpretation:Na 128, K+ 3.9, bun 4, gluc 127 Performing Lab: Notes/Report: NA 128 136-145 mmol/L K 3.9 3.5-5.1 mmoL/L Delta: 3.0 on 06/22/24 CL 98 98-107 mmol/L CO2 26 22.0-30.0 mmol/L GAP 7.9 5-15 mEq/L BUN 4 7-17 mg/dl CREATT 0.60 0.52-1.04 mg/dl CRCLE 43 50-200 mL/min GFRAA 118 >60 ML/MIN EGFR 97 >60 ml/min GLU 127 74-100 mg/dl Delta: 101 on 06/22/24 CA 8.7 8.4-10.2 mg/dl H-CMP Reviewed date:06/10/2024 09:27:50 AM Interpretation: Performing Lab: Notes/Report: NA 122 136-145 mmol/L K 3.0 3.5-5.1 mmoL/L CRITICAL RESULT Results called and read back/verified to: SHONDA on 06/10/24 at 0813 By Preethi Laughlin, FIRST AID INSTRUCTOR CL 90 98-107 mmol/L CO2 26 22.0-30.0 mmol/L GAP 9.0 5-15 mEq/L BUN 3 7-17 mg/dl CREATT 0.60 0.52-1.04 mg/dl CRCLE 41 50-200 mL/min GFRAA 118 >60 ML/MIN EGFR 97 >60 ml/min GLU 133 74-100 mg/dl CA 8.5 8.4-10.2 mg/dl BILIT 0.8 0.2-1.3 mg/dl AST 29 14-36 U/L ALT 16 12-78 U/L TP 6.1 6.3-8.2 g/dl ALB 3.7 3.5-5.0 g/dl Delta: 4.4 on 06/09/24 GLOB 2.4 1.3-3.2 g/dL AGRATIO 1.5 1.1-1.8 ALP 156 38-126 U/L H-Glycohemoglobin A1C Reviewed date:06/10/2024 09:27:50 AM Interpretation: Performing Lab: Notes/Report: HGBA1C 6.9 4.0-6.0 % < 6% Non-Diabetic Level < 7% Controlled Diabetic Level > 8% Poorly Controlled Diabetic Level H-BMP Reviewed date:06/10/2024 09:27:50 AM Interpretation: Performing Lab: Notes/Report: NA 122 136-145 mmol/L K 3.1 3.5-5.1 mmoL/L CL 88 98-107 mmol/L CO2 27 22.0-30.0 mmol/L GAP 10.1 5-15 mEq/L BUN 4 7-17 mg/dl Delta: 6 on 06/09/24-924 CREATT 0.60 0.52-1.04 mg/dl CRCLE 41 50-200 mL/min GFRAA 118 >60 ML/MIN EGFR 97 >60 ml/min GLU 150 74-100 mg/dl CA 8.6 8.4-10.2 mg/dl H-COVIDPANEL Reviewed date:06/09/2024 04:44:27 PM Interpretation: Performing Lab: Notes/Report: Unknown Is this the 1st COVID test for the patient? Unknown Does the patient have COVID symptoms? 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 Unknown Is patient an [facility] employee? N Is patient currently hospitalized? Yes Is patient currently in ICU? No Date of Symptom onset Is patient a resident in a congregate care setting? Unknown ADENOQIA Not Detected NotDetected CORONAHKU1 Not Detected NotDetected AIHUCDUE86 Not Detected NotDetected [id number] Not Detected NotDetected WSURIUZ19 Not Detected NotDetected METAPNEUMO Not Detected NotDetected RHINOENTER Not Detected NotDetected INFLUAPCR Not Detected NotDetected FLUAH1 Not Detected NotDetected [id number] Not Detected NotDetected INFLUAH3 Not Detected NotDetected INFLUB Not Detected NotDetected PARAINFLU1 Not Detected NotDetected PARAINFLU2 Not Detected NotDetected PARAINFLU3 Not Detected NotDetected PARAINFLU 4 Not Detected NotDetected RSVPCR Not Detected NotDetected COVIDHMH Not Detected NotDetected Effective 03/12/21, Positive covid results will no longer be called to the ordering physician. Infection control and the physician?s office will continue to report positive covid results to the local Health Department as required. This assay is for in vitro diagnostic use under FDA Emergency Use Authorization only. Negative results do not preclude infection with SARS CoV 2 virus and should not be the sole basis of a patient treatment/management or public health decision. Follow up testing should be performed according to the current CDC recommendations. BORDPERT Not Detected NotDetected CHLAMYDPNEUM Not Detected NotDetected MYCOPLASM Not Detected NotDetected Covid test (in house) Reviewed date:03/31/2024 12:15:40 PM Interpretation:Negative Performing Lab: Notes/Report: Negative Result: neg CBC Fingerstick (in house) Reviewed date:03/31/2024 12:16:07 PM Interpretation: Performing Lab: Notes/Report: wbc 5.7 3.5 - 10 lym 23.9 15 - 50 mid 5.4 2 - 15 gran 70.7 35 - 80 rbc 4.84 3.5 - 5.5 hgb 14.9 11.5 - 16.5 hct 44.4 35 - 55 mcv 91.8 75 - 100 mch 30.9 25 - 35 mchc 33.7 31 - 38 plat 207 100 - 400 Influenza Screen (in house) Reviewed date:03/31/2024 12:15:06 PM Interpretation:Negative Performing Lab: Notes/Report: Negative results neg Urinalysis - Inhouse Reviewed date:03/31/2024 12:16:54 PM Interpretation: Performing Lab: Notes/Report: Color/Clarity yellow/cloudy Leuk neg Nitrite neg Urobili 1.6 Protein 1+ pH 7.0 Blood neg Sp. Gr. 1.015 Ketone neg Bili neg Gluc neg bacteria WBC RBC P-Culture, Urine Reviewed date:08/21/2023 03:12:41 PM Interpretation:No growth Performing Lab: Notes/Report: Test performed by [facility] [address] [place] [address] , [address], [place] [address] Pietro Maier MD, Quality Compliance Coordinator CLIA: [id number] Specimen Source Urine - Void Culture, Urine See Below No growth Urinalysis - Inhouse Reviewed date:08/14/2023 01:01:29 PM Interpretation: Performing Lab: Notes/Report: Color/Clarity yellow/clear Leuk neg Nitrite neg Urobili 16 Protein 1+ pH 7.0 Blood trace-lysed Sp. Gr. 1.010 Ketone neg Bili neg Gluc neg bacteria WBC RBC H-CMP Reviewed date:06/14/2024 10:29:02 AM Interpretation: Performing Lab: Notes/Report: NA 124 136-145 mmol/L K 3.4 3.5-5.1 mmoL/L CL 93 98-107 mmol/L CO2 23 22.0-30.0 mmol/L GAP 11.4 5-15 mEq/L BUN < 2 7-17 mg/dl Delta: 3 on 06/10/24 CREATT 0.50 0.52-1.04 mg/dl CRCLE 44 50-200 mL/min GFRAA 146 >60 ML/MIN Delta: 118 on 06/10/24 EGFR 120 >60 ml/min GLU 93 74-100 mg/dl Delta: 126 on 06/10/24 CA 8.8 8.4-10.2 mg/dl BILIT 0.8 0.2-1.3 mg/dl AST 36 14-36 U/L ALT 19 12-78 U/L TP 6.5 6.3-8.2 g/dl ALB 3.9 3.5-5.0 g/dl GLOB 2.6 1.3-3.2 g/dL AGRATIO 1.5 1.1-1.8 ALP 188 38-126 U/L H-BMP Reviewed date:06/14/2024 10:29:02 AM Interpretation: Performing Lab: Notes/Report: NA 122 136-145 mmol/L K 3.4 3.5-5.1 mmoL/L CL 90 98-107 mmol/L CO2 24 22.0-30.0 mmol/L GAP 11.4 5-15 mEq/L BUN 3 7-17 mg/dl CREATT 0.60 0.52-1.04 mg/dl CRCLE 41 50-200 mL/min GFRAA 118 >60 ML/MIN EGFR 97 >60 ml/min GLU 126 74-100 mg/dl CA 8.9 8.4-10.2 mg/dl MEDICATIONS Medication SIG (Take, Route, Frequency, Duration) Notes Start Date End Date Status Vitamin E 400 UNIT 1 cap(s) orally once a day for 30 day(s) Active Alendronate Sodium 70 MG 1 tablet 30 min utes before the first food, beverage or medicine of the day with plain water Orally once a week for 90 days 08/14/2023 Active Nitrostat 0.4 MG 1 tab(s) sublinguall y every 5 minutes prn pain 03/26/2022 Active Losartan Potassium 25 MG 1 tablet Orally Once a day for 30 day(s) Active Potassium Chloride Renata ER 20 MEQ 1 tablet with food Orally Once a day for 30 day(s) Active Metoprolol Tartrate 25 MG 1 tab(s) orally 2 times a day for 90 days Active Vitamin D2 50 MCG (1999 UT) 1 cap(s) orally once a day Active MiraLax - 17 G ORALLY ONCE A DAY 12/01/2012 Active Ventolin HFA 2 PUFF(S) INHALED fo ur times a day as needed Active Rosuvastatin Calcium 40 MG 1 tab(s) orally once a day for 90 days Active metFORMIN HCl 500 MG 1 tablet with a jeremie l Orally Once a day for 30 day(s) Active Medrol 4 MG as directed orally d aily for 6 days 03/31/2024 Not-Taking amLODIPine Besylate 5 MG 1 tablet Orally Once a day for 30 day(s) 01/08/2024 Active IMMUNIZATIONS Vaccine Route Administration Date Status Comme nts COVID 19 Moderna Unknown 09/19/2020 Administered COVID 19 Moderna Unknown 10/17/2020 Administered COVID 19 Moderna Unknown 04/03/2021 Administered COVID 19 Moderna Unknown 10/24/2021 Administered DT, 7 YEARS OR OLDER Unknown 09/22/1996 Administered Fluzone High Dose (65yr and older) IM Intramuscular 04/17/2014 Administered Fluzone High Dose (65yr and older) IM Intramuscular 04/17/2015 Administered Fluzone High Dose (65yr and older) Unknown 04/24/2018 Administered Fluzone High Dose (65yr and older) Unknown 03/14/2020 Administered Fluzone High Dose (65yr and older) Unknown 03/18/2021 Administered Fluzone High Dose (65yr and older) IM Intramuscular 03/26/2022 Administered Fluzone High Dose (65yr and older) IM Intramuscular 05/18/2023 Administered H1N1 flu vaccine IM Intramuscular 06/06/2009 Administered PNEUMOVAX 23 VACCINE IM Intramuscular 01/04/2020 Administe red Prevnar (PCV13) IM Intramuscular 04/17/2014 Administered Prevnar (PCV13) Unknown 04/22/2016 Administered xAdministration of injection Unknown 02/04/2013 Administered xFlu shot-36 months and older IM Intramuscular 06/07/2005 Administered xFlu shot-36 months and older IM Intramuscular 05/23/2006 Administered xFlu shot-36 months and older IM Intramuscular 05/04/2007 Administered xFlu shot-36 months and older IM Intramuscular 05/20/2008 Administered xFluzone (6mos and older)-trivalent IM Intramuscular 04/27/2010 Administered xFluzone (6mos and older)-trivalent IM Intramuscular 04/05/2011 Administered xFluzone High Dose-private (65yr&older) Unknown 04/17/2017 Administered xFluzone High Dose-private (65yr&older) Unknown 04/29/2019 Administered SOCIAL HISTORY Tobacco Use: Social History Observation Description Date Smoking Status WARNING: Information temporarily unavailable Sex Assigned At : Social History Observation Description Sex Assigned At Unknown CURRENT TOBACCO USE: Question Answer Notes Are you a: QUIT SMOKING PROBLEMS Problem Type ICD Code Onset Dates Problem Status W/U Status Risk SNOMED Code Notes Problem Essential (primary) hypertension (I10) Active confirmed 82052071 Problem Vitamin B12 deficiency (E53.8) Active confirmed 344662729 Problem Essential hypertension (I10) Active confirmed 38511683 Problem COPD with exacerbation (J44.1) Active confirmed 578580957 Problem Dysuria (R30.0) Active confirmed 698608 01 Problem Fever blister (B00.1) Active confirmed 7342144 Problem Depression with anxiety (F41.8) Active confirmed 394573357 Problem Carotid stenosis (I65.29) Active confirmed Carotid artery stenosis (58758648) Problem Mixed hyperlipidemia (E78.2) Active confirmed 222477057 Problem Other chronic pain (G89.29) Active confirmed 42561591 Problem Centrilobular emphysema (J43.2) Active confirmed 09296099 Problem Age-related osteoporosis without current pathological fracture (M81.0) Active confirmed 65657379 Problem Acute cystitis with hematuria (N30.01) Active confirmed 40220777 Problem Personal history of nicotine dependence (Z87.891) Active confirmed Nicotine depend ence (63319548) Problem Bronchitis (J40) Active confirmed 08025 004 Problem Chronic obstructive pulmonary disease, unspecified COPD type (J44.9) Active confirmed COPD - Chronic obstructive pulmonary disease (81890614) Problem Coronary artery disease involving [place] coronary artery of [place] heart without angina pectoris (I25.10) Active confirmed 921015915 Problem Gastroesophageal reflux disease, esophagitis presence not specified (K21.9) Active confirmed Gastroesop hageal reflux disease (977947715) Problem Insomnia, unspecified type (G47.00) Active confirmed Insomnia (188658980) Problem Hyperlipidemia, unspecified hyperlipidemia type (E78.5) Active confirmed 94472617 Problem Seasonal allergic rhinitis due to pollen (J30.1) Active confirmed 80233392 Problem Stented coronary artery (Z95.5) Active confirmed 286242847 Problem Piriformis syndrome, right (G57.01) Active confirmed 309881494155987 Problem Atherosclerosis of bear [place] coronary artery without angina pectoris, unspecified whether bear [place] or transplanted heart (I25.10) Active confirmed 637149765 Problem Coronary artery calcification seen on CAT scan (I25.10) Active confirmed 234175124 Problem Osteoporosis, unspecified osteoporosis type, unspecified pathological fracture presence (M81.0) Active confirmed 50602083 Problem Fibrocystic breast disease (FCBD), unspecified laterality (N60.19) Active confirmed 97343050 Problem Allergic reaction to drug, subsequent encounter (T78.40XD) Active confirmed 752568544 Problem Type 2 diabetes mellitus without complication, unspecified whether buttermaker insulin use (E11.9) Active confirmed 677032388 Problem Status post myocardial infarction (I25.2) Active confirmed 687613662 Problem Abnormal radiographic examination (R93.89) Active confirmed 633928087 Problem Abnormal CT scan, chest (R93.89) Active confirmed 60951147406564225 VITAL SIGNS Heart Rate 62 /min 06/13/2024 Blood pressure diastolic 80 mm Hg 06/13/2024 Height 64.75 in 06/13/2024 Blood pressure systolic 130 mm Hg 06/13/2024 Weight 121.4 lbs 06/13/2024 BMI 20.36 kg/m2 06/13/2024 Encounters Encounter Location Date Provider Diagnosis [facility] [address] [facility] [address] [place], [place] [id number] 06/26/2023 Ama Grisel [facility] [address] [facility] [address] [place], [place] [id number] 08/14/2023 Amaelzbieta Recinos Centrilobular emphys jazzy J43.2 [facility] [address] [facility] [address] [place] [id number] 01/08/2024 Ama Grisel [facility] [address] [facility] [address] [place] [id number] 01/15/2024 Ama Grisel [facility] [address] [facility] [address] [place] [id number] 05/06/2024 Ama Grisel [facility] [address] [facility] [address] [place], [place] [id number] 06/17/2024 Jm Cates Hypokalemia E87.6 an d Hyponatremia E87.1 [facility] [address] [place] [id number] 06/22/2024 [facility] [address] [facility] [address] [place] [id number] 06/13/2024 Jm Cates Electrolyte imbalanc e E87.8 ; Hyponatremia E87.1 and Hypokalemia E87.6 [facility] [address] [place] [id number] 03/31/2024 Ama Crowdy Dysuria R30.0 ; Acut e URI J06.9 and Bronchitis J40 [facility] [address] [place] [id number] 01/07/2024 Ama Crowdy Essential hypertensi on I10 ; Mixed hyperlipidemia E78.2 ; Centrilobular emphysema J43.2 ; Gastroesophageal reflux disease, esophagitis presence not specified K21.9 ; Chronic obstructive pulmonary disease, unspecified COPD type J44.9 ; Vitamin B12 deficiency E53.8 ; Depression with anxiety F41.8 ; Personal history of nicotine dependence Z87.891 ; Coronary artery disease involving bear [place] coronary artery of [place] heart without angina pectoris I25.10 ; Carotid stenosis I65.29 ; Stented coronary artery Z95.5 ; Osteoporosis, unspecified osteoporosis type, unspecified pathological fracture presence M81.0 ; Hypokalemia E87.6 ; Osteoporosis screening Z13.820 ; Screening mammogram, encounter for Z12.31 and Screen for colon cancer Z12.11 [facility] [address] [facility] [address] [place] [id number] 08/14/2023 Ama Crowdy Acute cystitis with hematuria N30.01 and Piriformis syndrome, right G57.01 [facility] [address] [place] [id number] 06/23/2024 Jm Cates ASSESSMENTS Encounter Date Diagnosis Assessment Notes Treatment Notes Treatment Clinical Notes 08/14/2023 Acute cystitis with hematuria (ICD-10 - N30.01) Urine culture in the ER was normal. Will repeat a culture. 08/14/2023 Piriformis syndrome, right (ICD-10 - G57.01) Will give a depo medrol injection today and start on steroids. Will also give exercises to do at home. If no improvement, will need PT. 08/14/2023 Centrilobular emphys jazzy (ICD-10 - J43.2) 01/07/2024 Essential hypertensi on (ICD-10 - I10) Patient will call and make appt with cardiology. Will monitor her BP at home and call next week with readings. 01/07/2024 Mixed hyperlipidemia (ICD-10 - E78.2) 03/31/2024 Dysuria (ICD-10 - R30.0) Increase water intake, no acidic foods, no baths only showers, no caffeine. 03/31/2024 Acute URI (ICD-10 - J06.9) 06/13/2024 Hyponatremia (ICD-10 - E87.1) 06/13/2024 Electrolyte imbalanc e (ICD-10 - E87.8) 06/17/2024 Hypokalemia (ICD-10 - E87.6) 06/17/2024 Hyponatremia (ICD-10 - E87.1) 06/13/2024 Hypokalemia (ICD-10 - E87.6) 03/31/2024 Bronchitis (ICD-10 - J40) Has an albuterol inhaler at home she will start using every 6 hours. 01/07/2024 Centrilobular emphys jazzy (ICD-10 - J43.2) 01/07/2024 Gastroesophageal ref lux disease, esophagitis presence not specified (ICD-10 - K21.9) 01/07/2024 Chronic obstructive pulmonary disease, unspecified COPD type (ICD-10 - J44.9) 01/07/2024 Vitamin B12 deficien cy (ICD-10 - E53.8) 01/07/2024 Depression with anxi ety (ICD-10 - F41.8) 01/07/2024 Personal history of nicotine dependence (ICD-10 - Z87.891) 01/07/2024 Coronary artery dise ase involving bear [place] coronary artery of [place] heart without angina pectoris (ICD-10 - I25.10) 01/07/2024 Carotid stenosis (ICD-10 - I65.29) 01/07/2024 Stented coronary art mulu (ICD-10 - Z95.5) 01/07/2024 Osteoporosis, unspecified osteoporosis type, unspecified pathological fracture presence (ICD-10 - M81.0) 01/07/2024 Hypokalemia (ICD-10 - E87.6) 01/07/2024 Osteoporosis screeni ng (ICD-10 - Z13.820) 01/07/2024 Screening mammogram, encounter for (ICD-10 - Z12.31) 01/07/2024 Screen for colon can cer (ICD-10 - Z12.11) PLAN OF TREATMENT Pending Test Test Name Order Date colonoscopy 01/07/2024 CT Scan : Adrenal glands w/o contrast P-Troponin I 05/18/2023 Next Appt Details Provider Name:Jm Quintanilla er, 07/25/2024 01:30:00 PM, [address], [address], [place], [place], [id number], Insurance Providers Payer Name Payer Address Payer Phone Subscriber Number Group Number Insured Name Patient Relationship to Insured Coverage Start Date Coverage End Date [employer] (MEDICAR E) [address] [address] [place] [address] [id number] FRANKI MENENDEZ Self - patient is the insured MEDICATIONS ADMINISTERED Medication Instructions Date of Administration Dosage Notes B-12 01/10/2010 1 mL Depo- Medrol 40 mg/ml 08/14/2023 1.5 mL MEDICAL (GENERAL) HISTORY Medical History History ICD Code Hypertension Anxiety Depression Alcohol Abuse Colon polyps, Dx:2012 COVID 19 vaccine Moderna, 09/2020 COVID 19 Booster, Moderna, 03/2021 Surgical History Surgery Date(Month/Year) RT Eye Cataract Removal 11/29/2013 LT Eye Cataract Removal [id number] Stent RCA 05/04/2018 [facility] 05/04-
--- OUTSIDE RECORDS SUMMARY | 2024-06-23 09:59 | XMS_ITS ---
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 Name Role Phone Jm Cates Primary Care Provider [phone] REASON FOR VISIT Message Encounters Encounter Location Date Provider Diagnosis Doug [address] [facility] [address] [facility] [address] [place] [id number] 06/17/2024 Jm Cates Hypokalemia E87.6 an d Hyponatremia E87.1 ASSESSMENTS Encounter Date Diagnosis Assessment Notes Treatment Notes Treatment Clinical Notes 06/17/2024 Hypokalemia (ICD-10 - E87.6) 06/17/2024 Hyponatremia (ICD-10 - E87.1) PLAN OF TREATMENT Pending Test Test Name Order Date CT Scan : Adrenal glands w/o contrast Next Appt Details Provider Name:Jm Quintanilla er, 07/25/2024 01:30:00 PM, [facility] [address] [facility], [address], [place], [phone],
[2024-06-23 11:11] LABS: Chloride 100 mmol/L (98-107); Sodium 134 mmol/L (136-145)
[2024-06-23 11:12] LABS: Potassium 3.5 mmoL/L (3.5-5.1)
[2024-06-23 11:14] LABS: Anion Gap 9.5 mEq/L (5-15); Blood Urea Nitrogen 7 mg/dl (7-17); Carbon Dioxide 28 mmol/L (22.0-30.0); Creatinine Clearance Estimated 42 mL/min (50-200); Estimated Glomerular Filt Rate 82 ml/min (>60); GFR (African American) 99 ML/MIN (>60)
[2024-06-23 11:15] LABS: Calcium 9.2 mg/dl (8.4-10.2); Glucose 193 mg/dl (74-100)
[2024-06-23] MEDS: HYDROCORTISONE 2.5% CREAM 28GM TUBE TP ×2 (12:16→20:50)
--- NOTE | 2024-06-23 14:02 | PC.NURSE ---
Pt. is aox , 's on RA, up ad fito, 22g L H NS@ 75, Regular diet with 1,500 fluid restriction, npo after MN for CT abd biopsy in the am.
[2024-06-23 16:00] VITALS: BP 145/79; PULSE 72; RESP 17; TEMP 36.6; O2SAT 97
[2024-06-23 19:44] VITALS: BP 163/90; PULSE 67; RESP 20; TEMP 36.7; O2SAT 96
[2024-06-23] MEDS: MINERAL OIL ENEMA 133ML 133 ML RC (21:29)
[2024-06-24] VITALS (20 sets, daily range): BP systolic 118–193; BP diastolic 56–91; PULSE 65–80; RESP 16–22; TEMP 36.4–36.6; O2SAT 94–100; BMI 20.9
[2024-06-24 04:22] LABS: Osmolality, Urine 406 mOsmol/kg (.)
[2024-06-24 06:00] LABS: MANUAL DIFFERENTIAL MANUAL DIFFERENTIAL (MANUAL DIFF)
[2024-06-24 06:15] LABS: Basophils # 0.1 K/mm3 (0-0.2); Basophils % 0.9 % (0.1-2.0); Eosinophils # 0.2 K/mm3 (0.0-0.4); Eosinophils % 2.4 % (0.1-12.0); Hematocrit 40.6 % (37.0-47.0); Hemoglobin 14.4 g/dL (12.2-16.2); Lymphocytes # 1.1 K/mm3 (0.7-4.5); Lymphocytes % 17.2 % (10-50); Mean Corpuscular HGB Conc 35.5 g/dL (31.8-35.4); Mean Corpuscular Hemoglobin 31.3 pg (27.0-31.2); Mean Corpuscular Volume 88.3 fl (81-99); Mean Platelet Volume 7.5 fl (7.4-10.4); Monocytes # 0.4 K/mm3 (0.1-1.0); Monocytes % 6.4 % (1.7-9.3); Neutrophils # 4.8 K/mm3 (1.8-7.8); Neutrophils % 73.1 % (37.0-80.0); Platelet Count 226 K/mm3 (142-424); Red Cell Distribution Width 13.9 % (11.5-17.5); White Blood Count 6.5 K/mm3 (4.8-10.8)
[2024-06-24 06:21] LABS: Activated Partial Thrombo Time 25.4 seconds (22.8-30.6); INR 1.02 (0.9-1.1); Prothrombin Time 11.4 seconds (10.1-12.5)
--- NOTE | 2024-06-24 07:00 | CT_ITS ---
FINAL REPORT CLINICAL HISTORY: liver lesions of concern for metastasis FINDINGS: CT GUIDE LIVER BIOPSY. HISTORY: liver lesions ATTENDING PHYSICIAN: Dr. Munoz PHYSICIAN NUMERICAL CONTROL OPERATOR: Saran Fuchs PA-C PROCEDURE: After informed consent was obtained and a timeout was performed, the patient was prepped and draped in usual sterile fashion over the right lateral abdomen. Utilizing local anesthesia and sterile technique with a coaxial system, access to the liver was obtained. 4 18-gauge core biopsy passes were made. Post biopsy films demonstrate no complications. The patient received mild procedural sedation. The patient tolerated the procedure well and left the department in good condition. IMPRESSION: Status post CT-guided biopsy of the liver nodule. PROCEDURAL SEDATION: 2 mg of IV Versed and 50 mcg of Fentanyl were administered. Continuous vital sign monitoring was used. An RN was present during the sedation process. Overall sedation time was 30 minutes. Films reviewed , interpreted and dictated by Dr. Munoz Transcribed by Saran Fuchs PA-C. Reviewed, Interpreted and Dictated by Rinku Munoz III, MD Transcribed by SMILEY Echols Authenticated and [facility]
[2024-06-24 07:38] LABS: Eosinophils % 4 % (0-3); Lymphocytes % 17 % (10-50); Monocytes % 4 % (2-9); Neutrophils % 75 % (42-76); Platelet Estimate Normal; RBC Morphology Normal; Total Cells Counted 100
[2024-06-24] MEDS: PT OWN MED *AMLODIPINE 5 MG TAB 1 EACH PO (08:07)
[2024-06-24] MEDS: CARVEDILOL 6.25MG TABLET 6.25 MG PO (08:08)
[2024-06-24] MEDS: CHOLECALCIFEROL 1,000 UNITS (25MCG) TABLET 25 MCG PO (08:08)
[2024-06-24] MEDS: POTASSIUM CHLORIDE 10MEQ CAPSULE.ER 20 MEQ PO ×2 (08:08→13:10)
--- NOTE | 2024-06-24 08:31 | P.PN_ITS ---
Subjective *Date: 06/24/24 *Time: 10:59 Interval history: Patient was able to have a bowel movement yesterday. She states her stomach feels much less bloated today. She is n.p.o. awaiting a liver lesion biopsy. Medical Exam Vital signs and Labs for Last 24 Hours: Vital Signs Temp Pulse Resp BP Pulse Ox O2 Del Method 06/24/24 08:00 97.7 F 76 16 145/71 H 98 Room Air 06/24/24 06:43 Room Air 06/24/24 05:00 Room Air 06/24/24 04:00 97.5 F L 79 18 148/83 H 94 L Room Air 06/24/24 03:00 Room Air 06/24/24 01:00 Room Air 06/23/24 23:00 Room Air 06/23/24 21:00 Room Air 06/23/24 20:00 Room Air 06/23/24 19:44 98.0 F 67 20 163/90 H 96 Room Air 06/23/24 17:34 Room Air 06/23/24 16:00 97.8 F 72 17 145/79 H 97 Room Air 06/23/24 14:05 Room Air 06/23/24 12:28 Room Air Intake and Output 06/23/24 06/24/24 06/24/24 19:59 03:59 11:59 Intake Total 1470 / 1670 200 / 1670 Output Total 0 / 0 0 / 0 0 / 0 Balance 1470 / 1670 200 / 1670 0 / 1670 Intake: Intake, Oral Amount 870 / 1070 200 / 1070 Intake, Total IV Amount 600 / 600 0.9 % Sodium Chloride 1000ML 1, 600 / 600 000 ml @ 75 mls/hr IV .[id number] COUNTS INCLUDE 234 BEDS AT THE [facility] Rx#:[id number] Output: Output, Urine Amount 0 / 0 0 / 0 0 / 0 Other: Number of Voids 2 Number of Unmeasured Voids 1 1 1 Weight 125 lb 14.4 oz Patient Weight 06/24/24 11:59 Weight 125 lb 14.4 oz Laboratory Results - last 24 hr 06/21/24 10:01: Urine Osmolality 406 06/23/24 10:56: Sodium 134 L, Potassium 3.5, Chloride 100, Carbon Dioxide 28, Anion Gap 9.5, BUN 7 D, Creatinine 0.70, Estimated Creat Clear 42, Estimated GFR 82, Est GFR ( Amer) 99, Glucose 193 H D, Calcium 9.2 06/24/24 05:41: WBC 6.5, RBC 4.60, Hgb 14.4, Hct 40.6, MCV 88.3, MCH 31.3 H, MCHC 35.5 H, RDW 13.9, Plt Count 226, MPV 7.5, Neut % (Auto) 73.1, Lymph % (Auto) 17.2, Barry % (Auto) 6.4, Eos % (Auto) 2.4, Baso % (Auto) 0.9, Neut # (Auto) 4.8, Lymph # (Auto) 1.1, Barry # (Auto) 0.4, Eos # (Auto) 0.2, Baso # (Auto) 0.1, Total Counted 100, Neutrophils % (Manual) 75, Lymphocytes % (Manual) 17, Monocytes % (Manual) 4, Eosinophils % (Manual) 4 H, Platelet Estimate Normal, RBC Morphology Normal, PT 11.4, INR 1.02, APTT 25.4 I & O for Labs for Last 24 Hours: Intake & Output 06/21/24 06/22/24 06/23/24 06/24/24 11:59 11:59 11:59 11:59 Intake Total 1519 / 1519 2181 / 2181 1670 / 1670 Output Total 0 / 0 0 / 0 0 / 0 Balance 1519 / 1519 2181 / 2181 1670 / 1670 Weight 123 lb 3 oz 122 lb 1.6 oz 125 lb 14.4 oz Constitutional: Present no acute distress Respiratory: Present rhonchi Cardiac: Present Reg Rate and Rhythm GI: Present soft; Absent distention or tenderness Extremities: Absent edema Skin: Present intact Neuro: Present alert, awake and oriented x 3 Assessment and Plan *Assessment and plan (1) Acute hyponatremia: Status: Acute Category: Medical Code(s): E87.1 - Hypo-osmolality and hyponatremia (2) Acute hypokalemia: Status: Acute Category: Medical Code(s): E87.6 - Hypokalemia (3) Liver lesion: Status: Acute Category: Medical Code(s): K76.9 - Liver disease, unspecified (4) Constipation: Status: Acute Category: Medical Code(s): K59.00 - Constipation, unspecified (5) Adrenal adenoma: Status: Acute Category: Medical Code(s): D35.00 - Benign neoplasm of unspecified adrenal gland (6) Type 2 diabetes mellitus: Status: Acute Category: Medical Code(s): E11.9 - Type 2 diabetes mellitus without complications (7) HTN (hypertension): Status: Chronic Qualifiers: Hypertension type: essential hypertension Qualified Code(s): I10 - Essential (primary) hypertension Category: Medical Code(s): I10 - Essential (primary) hypertension (8) HLD (hyperlipidemia): Status: Chronic Qualifiers: Hyperlipidemia type: mixed hyperlipidemia Qualified Code(s): E78.2 - Mixed hyperlipidemia Category: Medical Code(s): E78.5 - Hyperlipidemia, unspecified (9) CAD (coronary artery disease): Status: Chronic Qualifiers: Associated angina: without angina Coronary Disease-Associated Artery/Lesion type: [place] artery [place] vs. transplanted heart: [place] heart Qualified Code(s): I25.10 - Atherosclerotic heart disease of [place] coronary artery without angina pectoris Category: Medical Code(s): I25.10 - Atherosclerotic heart disease of [place] coronary artery without angina pectoris Plan Sodium and potassium are improving. Patient has had a BM. Awaiting liver biops y today.
--- NOTE | 2024-06-24 09:21 | PC.NURSE ---
just arrived back from liver biopsy at this time 920
[2024-06-24] MEDS: ONDANSETRON 4MG/2ML VIAL 4 MG IV (09:26)
[2024-06-24] MEDS: SIMETHICONE 80MG CHEWABLE TABLET 80 MG PO (09:43)
[2024-06-24] MEDS: HYDROCORTISONE 2.5% CREAM 28GM TUBE TP (13:10)
--- NOTE | 2024-06-27 12:59 | SW/DCPLANNER ---
Spoke with patient on the phone. Patient stated that she is going okay. Patient said she just got out of her follow up appointment. Patient asked if i knew when her biopsy results will be back and i told her that i would give a week. Patient stated that she has no other concerns or questions at this time. Kalyn Francisco
--- NOTE | 2024-06-30 13:24 | EXP.DC.SUM ---
General Admission date:: 06/21/24 Discharge date: 06/24/24 HPI HPI HPI: Patient presents for evaluation of chest pain and weakness. Patient reports that approximately 3 weeks ago she had a gastroenteritis that actually ended up requiring admission for significant electrolyte derangements including hyponatremia. Her sodium on evaluation at that time was 119. She was ultimately discharged and had follow-up scheduled with Dr. Cates this coming however she has continued to feel very poorly very weak. This morning she had 2 episodes of brief chest pain and decided to come to the emergency department for evaluation. Patient denies fever chills hemoptysis hematochezia melena nausea vomiting diarrhea dyspnea shortness of breath. (above as per ER physician) The patient states she decided to come sooner to the ER this time as the last time this happened, she began vomiting. She states she stays nauseated most mornings. She has been eating and drinking. Her CP was on the left side but has since resolved. Hospital Course Hospital Course Hospital Course: The patient's chest x-ray showed nothing acute. Her sodium improved slightly with IV fluids. Her potassium decreased therefore oral potassium was ordered 3 times daily. She was scheduled to have imaging on an outpatient basis to check for an adrenal adenoma. This was ordered while inpatient. She had a CT of the [place] which was normal. Her adrenal lesion had not changed on CT compared to previous imaging but there were multiple liver lesions on her CT that were not present on the 08/12 CT of the abdomen. These were described as suspicious for metastatic disease. There were also sclerotic areas of the bone raising concern for metastasis. It was felt she would need a liver biopsy. She had some constipation and was given a glycerin suppository and an enema which did help. She had her liver biopsy on 06/24/2024 and was then stable to be discharged home with outpatient follow-up. Exam Data for Last 24 hours Vital signs and Labs for Last 24 Hours: Temp Pulse Resp BP Pulse Ox O2 Del Method O2 Flow Rate 97.9 F 74 16 118/56 L 95 Room Air 4 06/24/24 09:25 06/24/24 11:40 06/24/24 11:40 06/24/24 11:40 06/24/24 11:40 06/24/24 13:00 06/24/24 09:08 Narrative: Constitutional Constitutional: no acute distress *Routine HEENT Exam Head: Present normocephalic and atraumatic Eye: Present EOMI and PERRL ENT: Present mucous membranes moist *Routine Neck Exam Neck: Present supple and full ROM *Routine Respiratory Exam Respiratory: Present CTA bilaterally *Routine Cardiovascular Exam Cardiovascular: Present RRR *Routine Abdominal Exam Abdominal: Present soft and normoactive bowel sounds; Absent tenderness *Routine Rectal Exam Rectal:: deferred *Routine Genitalia Exam Genitalia:: deferred *Routine Extremities Exam Extremities: Absent cyanosis, clubbing or edema *Routine Skin Exam Skin: Present intact; Absent erythema *Routine Neurological Exam Neurological: Present alert and oriented X3 DS: Diagnosis Discharge Diagnosis (1) Acute hyponatremia: Status: Acute Code(s): E87.1 - Hypo-osmolality and hyponatremia (2) Acute hypokalemia: Status: Acute Code(s): E87.6 - Hypokalemia (3) Liver lesion: Status: Acute Code(s): K76.9 - Liver disease, unspecified (4) Constipation: Status: Inactive Code(s): K59.00 - Constipation, unspecified (5) Adrenal adenoma: Status: Acute Code(s): D35.00 - Benign neoplasm of unspecified adrenal gland (6) Type 2 diabetes mellitus: Status: Acute Code(s): E11.9 - Type 2 diabetes mellitus without complications (7) HTN (hypertension): Status: Chronic Code(s): I10 - Essential (primary) hypertension Qualifiers: Hypertension type: essential hypertension Qualified Code(s): I10 - Essential (primary) hypertension (8) HLD (hyperlipidemia): Status: Chronic Code(s): E78.5 - Hyperlipidemia, unspecified Qualifiers: Hyperlipidemia type: mixed hyperlipidemia Qualified Code(s): E78.2 - Mixed hyperlipidemia (9) CAD (coronary artery disease): Status: Chronic Code(s): I25.10 - Atherosclerotic heart disease of [place] coronary artery without angina pectoris Qualifiers: Coronary Disease-Associated Artery/Lesion type: [place] artery [place] vs. transplanted heart: [place] heart Associated angina: without angina Qualified Code(s): I25.10 - Atherosclerotic heart disease of [place] coronary artery without angina pectoris Meds Home Medications and Allergies Home Medications ?Medication ?Instructions ?Recorded ?Confirmed ?Type nitroglycerin 0.4 mg sublingual 0.4 mg sublingual Q5MINP PRN Chest 05/07/18 06/21/24 Rx tablet Pain ##25 cholecalciferol (vitamin D3) 25 1,000 unit PO DAILY 05/18/18 06/21/24 History mcg (1,000 unit) capsule albuterol sulfate 90 mcg/actuation 2 puff inhalation QIDP PRN 08/10/23 06/21/24 History aerosol inhaler shortness of air alendronate 70 mg tablet 70 mg PO WEEKLY 01/20/24 06/21/24 History amlodipine 5 mg tablet 5 mg PO DAILY #90 tabs 02/03/24 06/21/24 Rx budesonide 160 mcg-glycopyr 9 2 inh inhalation BID #10.7 grams 06/11/24 06/21/24 Rx mcg-formot 4.8 mcg/actuation HFA inhaler (Breztri Aerosphere) metformin 500 mg tablet 500 mg PO DAILY #30 tabs 06/11/24 06/21/24 Rx furosemide 20 mg tablet 20 mg PO DAILY 06/21/24 06/21/24 History potassium chloride 10 mEq 20 meq PO TID 06/21/24 06/21/24 History capsule,extended release carvedilol 6.25 mg tablet 6.25 mg PO BID #60 tabs 06/24/24 Rx hydrocortisone 2.5 % topical cream 1 applic topical TID #45 grams 06/24/24 Rx polyethylene glycol 3350 17 gram 17 g PO DAILY #30 ea 06/24/24 Rx oral powder packet (HealthyLax) New Prescriptions to Start Prescriptions: carvedilol Stephon Cates hydrocortisone Stephon Cates polyethylene glycol 3350 [HealthyLax] Stephon Cates Allergies Allergy/AdvReac Type Severity Reaction Status Date / Time No Known Drug Allergies Allergy Unknown Verified 02/03/24 09:39 (NKDA) Discharge Plan Disposition Patient Disposition: Home, Self-Care Condition: Good Discharge Order Discharge Orders: Discharge Order (Routine); Ordered 06/24/24 Ordered By: Stephon Cates Follow up Plan Follow up with: Stephon Cates MD [Primary Care Provider] - 06/27/24 11:30 am Prescriptions/Medication Reconciliation: New carvedilol 6.25 mg Tablet 6.25 mg PO BID Qty: 60 2RF polyethylene glycol 3350 [HealthyLax] 17 gram Powder In Packet 17 g PO DAILY Qty: 30 3RF hydrocortisone 2.5 % Cream 1 applic topical TID Qty: 45 2RF Continued cholecalciferol (vitamin D3) 1,000 unit capsule 1,000 unit PO DAILY alendronate 70 mg tablet 70 mg PO WEEKLY Patient Comments: TAKE 1 TABLET BY MOUTH ONCE A WEEK. TAKE WITH PLAIN WATER 30 MINUTES BEFORE THE FIRST FOOD, BEVERAGE, OR MEDICINE FOF THE DAY amlodipine 5 mg tablet 5 mg PO DAILY Qty: 90 3RF nitroglycerin 0.4 MG tablet, sublingual 0.4 mg sublingual Q5MINP PRN (Reason: Chest Pain) Qty: 25 0RF albuterol sulfate 90 mcg/actuation HFA aerosol inhaler 2 puff inhalation QIDP PRN (Reason: shortness of air) Patient Comments: INHALE 2 PUFFS BY MOUTH 4 TIMES DAILY Rx Instructions: INHALE 2 PUFFS BY MOUTH 4 TIMES DAILY furosemide 20 mg tablet 20 mg PO DAILY potassium chloride 10 mEq capsule, extended release 20 meq PO TID Rx Instructions: PATIENT STATES SHE TAKES 2 TABLETS THREE TIMES DAILY Breztri Aerosphere 160-9-4.8 mcg/actuation HFA aerosol inhaler 2 inh inhalation BID Qty: 10.7 2RF metformin 500 mg tablet 500 mg PO DAILY Qty: 30 4RF Discontinued rosuvastatin [Crestor] 40 mg tablet 40 mg PO HS metoprolol tartrate 25 MG tablet 25 mg PO BID omeprazole 20 mg capsule,delayed release(DR/EC) 20 mg PO DAILYP PRN (Reason: Acid Reflux) losartan 25 mg tablet 25 mg PO BID Qty: 60 0RF Problem Reconciliation Problems Reviewed?: Yes Patient Discharge Instructions ACTIVITY: Limited activity DIET: advance to your usual diet Additional Instructions: INCREASE SALT INTAKE, BUT RESTRICT FLUIDS. NOTE MEDICATION CHANGES. Patient Instructions: DI for Hyponatremia Print Language: [place] Providers Primary Care Provider: Stephon Cates Admit Provider: Stephon Cates Attending Provider: Stephon Cates
== END 2024-06-24 15:15 | disposition home or self-care (01) | DRG 641 ==
LOC: ER 13:29 → 2ND 14:17
PROVIDERS: Physician Assistant; Admitting Provider Family Medicine; Emergency Provider Emergency Medicine; PCP Family Medicine; Visit Provider Family Medicine
DX: E87.1 Hypo-osmolality and hyponatremia (principal); C78.7 Secondary malignant neoplasm of liver and intrahepatic bile duct; C79.51 Secondary malignant neoplasm of bone; E87.6 Hypokalemia; D35.00 Benign neoplasm of unspecified adrenal gland; E11.9 Type 2 diabetes mellitus without complications; I10 Essential (primary) hypertension; E78.2 Mixed hyperlipidemia; I25.10 Atherosclerotic heart disease of native coronary artery without angina pectoris; K59.00 Constipation, unspecified
CPT/HCPCS: 47000; 36415; 70481; 71046; 74170; 77012; 80048; 80053; 83690; 83735; 83880; 83935; 84436; 84443; 84479; 84484; 85007; 85014; 85018; 85025; 85048; 85049; 85610; 85730; 86803; 87389; 87633; 88307; 88333; 88341; 88342; 93005; 99285; J1885; J2250; J2405; J3010; J7030; Q9967

== ENCOUNTER 2024-07-16 09:05 | Emergency (ER) | payer MEDICARE, SELFPAY ==
[2024-07-16] VITALS (12 sets, daily range): BP systolic 133–170; BP diastolic 64–84; PULSE 67–85; RESP 10–24; TEMP 36.7; O2SAT 97–100
--- NOTE | 2024-07-16 09:10 | PC.NURSE ---
Dr. Sousa at bedside
[2024-07-16 09:35] LABS: Basophils % 0.5 % (0.1-2.0); Eosinophils % 0.5 % (0.1-12.0); Hematocrit 40.1 % (37.0-47.0); Hemoglobin 14.7 g/dL (12.2-16.2); Lymphocytes # 0.9 K/mm3 (0.7-4.5); Lymphocytes % 9.9 % (10-50); Mean Corpuscular HGB Conc 36.7 g/dL (31.8-35.4); Mean Corpuscular Hemoglobin 30.8 pg (27.0-31.2); Mean Corpuscular Volume 83.9 fl (81-99); Mean Platelet Volume 9.2 fl (7.4-10.4); Monocytes % 11.2 % (1.7-9.3); Neutrophils # 6.8 K/mm3 (1.8-7.8); Neutrophils % 77.4 % (37.0-80.0); Platelet Count 239 K/mm3 (142-424); Red Blood Count 4.78 M/mm3 (4.20-5.40); Red Cell Distribution Width 12.1 % (11.5-17.5); White Blood Count 8.8 K/mm3 (4.8-10.8)
[2024-07-16 09:37] LABS: Albumin Level 4.1 g/dl (3.5-5.0); Chloride 86 mmol/L (98-107); Potassium 4.1 mmoL/L (3.5-5.1); Sodium 118 mmol/L (136-145)
[2024-07-16 09:39] LABS: Blood Urea Nitrogen 7 mg/dl (7-17); Creatinine Clearance Estimated 42 mL/min (50-200); Estimated Glomerular Filt Rate 120 ml/min (>60)
[2024-07-16 09:40] LABS: Alanine Aminotransferase 53 U/L (12-78); Albumin/Globulin Ratio 1.6 (1.1-1.8); Alkaline Phosphatase 191 U/L (38-126); Anion Gap 10.1 mEq/L (5-15); Aspartate Amino Transferase 75 U/L (14-36); Bilirubin,Total 0.9 mg/dl (0.2-1.3); Calcium 9.4 mg/dl (8.4-10.2); Carbon Dioxide 26 mmol/L (22.0-30.0); GFR (African American) 146 ML/MIN (>60); Globulin 2.6 g/dL (1.3-3.2); Glucose 161 mg/dl (74-100); Magnesium 1.9 mg/dl (1.6-2.3); Total Protein,Serum 6.7 g/dl (6.3-8.2)
[2024-07-16 09:45] LABS: Lipase 694 U/L (23-300)
--- NOTE | 2024-07-16 09:47 | ED_ITS ---
Discharge Plan Disposition Patient Disposition: Home, Self-Care Prescriptions Prescriptions: New promethazine 12.5 mg tablet 12.5 mg PO TID PRN (Reason: vomiting) Qty: 15 0RF Rx Instructions: 3 doses during day; last dose no later than 4 hr before bedtime No Action cholecalciferol (vitamin D3) 1,000 unit capsule 1,000 unit PO DAILY alendronate 70 mg tablet 70 mg PO WEEKLY Patient Comments: TAKE 1 TABLET BY MOUTH ONCE A WEEK. TAKE WITH PLAIN WATER 30 MINUTES BEFORE THE FIRST FOOD, BEVERAGE, OR MEDICINE FOF THE DAY amlodipine 5 mg tablet 5 mg PO DAILY Qty: 90 3RF ondansetron 4 mg tablet,disintegrating 4 mg PO DAILY Patient Comments: DISSOLVE 1 TABLET IN MOUTH EVERY 8 HOURS NEEDED potassium chloride 20 mEq tablet extended release 20 meq PO Patient Comments: TAKE 1 TABLET BY MOUTH TWICE DAILY methylprednisolone 4 mg tablets,dose pack See Rx Instructions PO PER PKG DIR Qty: 21 0RF Rx Instructions: PO PER PKG DIR hydrocodone-acetaminophen 5-300 mg tablet 1 tab PO Q6H PRN (Reason: pain) Qty: 60 0RF nitroglycerin 0.4 MG tablet, sublingual 0.4 mg sublingual Q5MINP PRN (Reason: Chest Pain) Qty: 25 0RF albuterol sulfate 90 mcg/actuation HFA aerosol inhaler 2 puff inhalation QIDP PRN (Reason: shortness of air) Patient Comments: INHALE 2 PUFFS BY MOUTH 4 TIMES DAILY Rx Instructions: INHALE 2 PUFFS BY MOUTH 4 TIMES DAILY furosemide 20 mg tablet 20 mg PO DAILY potassium chloride 10 mEq capsule, extended release 20 meq PO TID Rx Instructions: PATIENT STATES SHE TAKES 2 TABLETS THREE TIMES DAILY carvedilol 6.25 mg Tablet 6.25 mg PO BID Qty: 60 2RF polyethylene glycol 3350 [HealthyLax] 17 gram Powder In Packet 17 g PO DAILY Qty: 30 3RF hydrocortisone 2.5 % Cream 1 applic topical TID Qty: 45 2RF Breztri Aerosphere 160-9-4.8 mcg/actuation HFA aerosol inhaler 2 inh inhalation BID Qty: 10.7 2RF metformin 500 mg tablet 500 mg PO DAILY Qty: 30 4RF Referrals Follow up/Referrals: Stephon Cates MD [Primary Care Provider] - See instructions Activity Restrictions/Add. Instructions Additional Instructions/Restrictions: As discussed if new or worsening symptoms please do not hesitate to return the emergency department. Your sodium was very low today. Please follow-up Thursday morning with your cancer doctor as discussed. Please take your medications as prescribed. Do not combine your Phenergan with ondansetron. Clinical Impressions Clinical Impression: Elevated lipase, Acute hyponatremia, Metastatic cancer Print Language Print Language: Greek Discharge ED Provider: León Sousa General Adult HPI General Chief complaint: Weakness Stated complaint: weakness Time Seen by Provider: 07/16/24 09:10 History of Present Illness HPI narrative: Patient is 73-year-old female past medical history of recently diagnosed liver cancer who presents to the emergency department for evaluation of generally feeling unwell. Patient is in the middle of evaluation for new diagnosed liver cancer with Dr. Wesley here. She has had electrolyte abnormalities before and has decreased p.o. intake secondary to nausea, she does not have significant vomiting. She is still stooling without blood. No chest pain no abdominal pain however due to persistent symptoms she presents here for continued evaluation. No other acute complaints at this time Related Data Home Medications ?Medication ?Instructions ?Recorded ?Confirmed cholecalciferol (vitamin D3) 25 1,000 unit PO DAILY 05/18/18 07/11/24 mcg (1,000 unit) capsule albuterol sulfate 90 mcg/actuation 2 puff inhalation QIDP PRN 08/10/23 07/11/24 aerosol inhaler shortness of air alendronate 70 mg tablet 70 mg PO WEEKLY 01/20/24 07/11/24 furosemide 20 mg tablet 20 mg PO DAILY 06/21/24 07/11/24 potassium chloride 10 mEq 20 meq PO TID 06/21/24 07/11/24 capsule,extended release ondansetron 4 mg disintegrating 4 mg PO DAILY 07/05/24 07/11/24 tablet potassium chloride 20 mEq 20 meq PO 07/05/24 07/11/24 tablet,extended release Previous Rx's ?Medication ?Instructions ?Recorded nitroglycerin 0.4 mg sublingual 0.4 mg sublingual Q5MINP PRN Chest 05/07/18 tablet Pain ##25 amlodipine 5 mg tablet 5 mg PO DAILY #90 tabs 02/03/24 budesonide 160 mcg-glycopyr 9 2 inh inhalation BID #10.7 grams 06/11/24 mcg-formot 4.8 mcg/actuation HFA inhaler (Breztri Aerosphere) metformin 500 mg tablet 500 mg PO DAILY #30 tabs 06/11/24 carvedilol 6.25 mg tablet 6.25 mg PO BID #60 tabs 06/24/24 hydrocortisone 2.5 % topical cream 1 applic topical TID #45 grams 06/24/24 polyethylene glycol 3350 17 gram 17 g PO DAILY #30 ea 06/24/24 oral powder packet (HealthyLax) hydrocodone 5 mg-acetaminophen 300 1 tab PO Q6H PRN pain #60 tabs 07/05/24 mg tablet methylprednisolone 4 mg tablets in See Rx Instructions PO PER PKG DIR 07/05/24 a dose pack #21 tabs promethazine 12.5 mg tablet 12.5 mg PO TID PRN vomiting #15 07/16/24 tabs Allergies Allergy/AdvReac Type Severity Reaction Status Date / Time No Known Drug Allergies Allergy Unknown Verified 07/11/24 10:03 ([facility]) [facility] Disclaimer: The information contained in this section may have been updated after the patient was seen, as this information can be updated by other users. Medical History Constipation SIADH (syndrome of inappropriate ADH production) Bronchitis Renal artery stenosis Abnormal EKG Chest pain at rest Palpitations Ankle swelling determined by examination Lesion of lung Blade duct, cyst Swelling of left hand HHD (hypertensive heart disease) SOB (shortness of breath) URI (upper respiratory infection) STEMI (ST elevation myocardial infarction) Type 2 diabetes mellitus Adrenal adenoma HTN (hypertension) GERD (gastroesophageal reflux disease) Anxiety Allergies Family history of cancer Family history of hyperlipidemia Family history of hypertension Heart attack Dizziness Hypotension HLD (hyperlipidemia) CAD (coronary artery disease) Surgical History History of cataract surgery History of gastric bypass History of appendectomy Stented coronary artery Family History Other Family history of cancer Family history of hyperlipidemia Family history of hypertension Social History Smoking Status: Current every day smoker tobacco type: cigarettes packs per day: 0 second hand exposure: No alcohol intake: never substance use type: denies use current occupational status: retired Travel in the last 8 weeks: None household members: spouse housing: house caffeine: Yes Have you lived/traveled outside [place] in past 30 days?: No Contact w/someone who lives/traveled outside [place] past 30 days?: No Exposure to someone with infectious disease in past 14 days?: No Do you have a fever (greater than 100.4 F or 38 C)?: No Have you tested positive for COVID-19: No Exposed to someone with COVID-19 in past 14 days?: No Do you have a sore throat?: No Do you have a cough?: No Do you have any weakness?: No Do you have any diarrhea?: No Are you experiencing any unusual bleeding?: No Do you have any muscle aches/pain?: No Do you have any abdominal pain?: No Are you experiencing loss of taste or smell?: No Other Medical History Have you received the Flu Vaccine for this season: No Have you received the Pneumonia Vaccine: Yes ROS Obtained: Yes Systems reviewed as appropriate & no additional complaints except as documented Physical Exam General General appearance: alert and in no apparent distress Head Head exam: atraumatic and normocephalic Eye Eye exam: Present PERRL ENT ENT exam: Present mucous membranes moist Neck Neck exam: Present normal inspection Chest Chest inspection: Present normal inspection and symmetric chest wall rise Respiratory Respiratory exam: Present normal lung sounds bilaterally; Absent respiratory distress Cardiovascular Cardiovascular exam: Present regular rate and normal rhythm Abdominal Exam Abdominal exam: Present soft; Absent tenderness Extremities Exam Extremities exam: Present normal inspection Neurological Exam Neurological exam: Present alert Psychiatric Psychiatric exam: Present normal affect Skin Skin exam: Present warm and dry Medical Decision Making Medical Records Screening: Per USPSTF and CDC recommendations, given the prevalence of disease in our region, it is our hospital?s policy to screen for HIV and viral Hepatitis for all patients aged 18 and over and those with ongoing risk factors. Arya Inquiry Pt receiving controlled substance: No Vital Signs: 07/16/24 09:07 07/16/24 10:00 07/16/24 10:30 Temperature 98.0 F Temperature Source Oral Pulse Rate 71 69 Pulse Rate [Right] 85 Respiratory Rate 17 10 L 11 L Blood Pressure 147/78 H 166/73 H Blood Pressure [Right Arm] 133/84 Blood Pressure Mean [Right Arm] 100 Blood Pressure Source [Right Arm] Automatic Cuff 02 Sat by Pulse Oximetry 98 97 99 Oxygen Delivery Method Room Air Room Air Room Air 07/16/24 11:00 07/16/24 11:30 07/16/24 11:55 Temperature Temperature Source Pulse Rate 69 70 70 Pulse Rate [Right] Respiratory Rate 22 21 17 Blood Pressure 144/74 H 170/78 H 141/68 H Blood Pressure [Right Arm] Blood Pressure Mean [Right Arm] Blood Pressure Source [Right Arm] 02 Sat by Pulse Oximetry 99 100 99 Oxygen Delivery Method Room Air Room Air Room Air 07/16/24 12:00 07/16/24 12:30 07/16/24 13:01 Temperature Temperature Source Pulse Rate 69 67 70 Pulse Rate [Right] Respiratory Rate 24 24 24 Blood Pressure 150/75 H 137/64 153/71 H Blood Pressure [Right Arm] Blood Pressure Mean [Right Arm] Blood Pressure Source [Right Arm] 02 Sat by Pulse Oximetry 99 98 100 Oxygen Delivery Method Room Air Room Air Room Air Lab Data Lab Results 07/16/24 09:15: WBC 8.8, RBC 4.78, Hgb 14.7, Hct 40.1, MCV 83.9, MCH 30.8, MCHC 36.7 H, RDW 12.1, Plt Count 239, MPV 9.2, Neut % (Auto) 77.4, Lymph % (Auto) 9.9 L, Finney % (Auto) 11.2 H, Eos % (Auto) 0.5, Baso % (Auto) 0.5, Neut # (Auto) 6.8, Lymph # (Auto) 0.9, Finney # (Auto) 1.0, Eos # (Auto) 0.0, Baso # (Auto) 0.0, S odium 118 L, Potassium 4.1, Chloride 86 L, Carbon Dioxide 26, Anion Gap 10.1, BUN 7, Creatinine 0.50 L, Estimated Creat Clear 42, Estimated GFR 120, Est GFR ( Amer) 146, Glucose 161 H, Calcium 9.4, Magnesium 1.9, Total Bilirubin 0.9, AST 75 H, ALT 53, Alkaline Phosphatase 191 H, Troponin I < 0.01, Total Protein 6.7, Albumin 4.1, Globulin 2.6, Albumin/Globulin Ratio 1.6, Lipase 694 H 07/16/24 10:34: Urine Color Yellow, Urine Appearance Clear, Urine pH 7.5, Ur Specific Mason 1.010, Urine Protein Negative, Urine Glucose (UA) Trace, Urine Ketones Negative, Urine Blood Trace-i, Urine Nitrate Negative, Urine Bilirubin Negative, Urine Urobilinogen 0.2, Ur Leukocyte Esterase Negative, Urine RBC Occasional, Urine WBC None, Ur Squamous Epith Cells Occasional, Urine Bacteria Trace 07/16/24 09:15 07/16/24 09:15 Orders (Tests/Meds): ED MEDICATIONS Discontinued Medications Generic Name Dose Route Start Last Admin Trade Name Freq PRN Reason Stop Dose Admin Lactated Ringer's 1,000 mls @ 999 mls/hr 07/16/24 09:28 07/16/24 09:55 Lactated Ringer's 1000 Ml Bag IV 07/16/24 10:28 Not Given .Q1H1M ONE Sodium Chloride 1,000 mls @ 999 mls/hr 07/16/24 09:51 07/16/24 10:00 Sod Chlor 0.9% 1000ml Bag IV 07/16/24 10:51 999 mls/hr .Q1H1M ONE Administration Iopamidol 75 ml 07/16/24 10:16 07/16/24 10:18 Iopamidol-370 (76%);100ml Bottle IV 07/16/24 10:17 75 ml ONCE ONE Administration Promethazine HCl 12.5 mg 07/16/24 09:28 07/16/24 10:00 Promethazine Hcl 25mg/Ml 1ml Vial IV 07/16/24 09:29 12.5 mg ONCE ONE Administration Sodium Chloride 25 ml 07/16/24 09:28 07/16/24 10:02 Sodium Chloride 0.9% 25ml Bag IV 07/16/24 09:29 25 ml ONCE ONE Administration Sodium Chloride 10 ml 07/16/24 10:16 07/16/24 10:17 Sodium Chloride 0.9% 10ml Syr (Rad Only) IV 07/16/24 10:17 10 ml ONCE ONE Administration ORDERS Category Date Time Status CT abdomen pelvis w con Stat Cat Scan 07/16/24 09:48 Completed CBC w/Auto Diff [Complete Blood Count Auto Diff] Stat Lab 07/16/24 09:15 Completed CMP [Comprehensive Metabolic Panel] Stat Lab 07/16/24 09:15 Completed Lipase Stat Lab 07/16/24 09:15 Completed MG [Magnesium] Stat Lab 07/16/24 09:15 Completed Trop I [Troponin I] Stat Lab 07/16/24 09:15 Completed Troponin I Q3H Lab 07/16/24 12:30 Ordered Troponin I Q3H Lab 07/16/24 15:30 Ordered UA [Urinalysis and Microscopic] Stat Lab 07/16/24 10:34 Completed ECG Data Tracing #1: Independently interpreted by me rate of 77, rhythm is regular, axis is normal, no ST elevation in anatomical contiguous leads, sinus rhythm versus a flutter with 4-1 block due to significant chatter EKG will be repeated QTc 390 Tracing #2: Independently interpreted by me rate 68, rhythm is regular, axis is normal, no ST elevation in anatomical contiguous leads, QTc 428. Medical Decision Narrative: In summary patient is 73-year-old female past medical history described above who presents to the emergency department for evaluation of generally feeling unwell in the setting of liver cancer currently pending continued diagnostic workup. Patient is hemodynamically stable nontoxic-appearing upon arrival, afebrile. Differential includes metabolic derangement, pancreatitis, urinary tract infection, among others. Workup will be conducted with hematologic labs, urinalysis. Initial inventions include Phenergan, crystalloid bolus. Intra- abdominal imaging was initially considered however she is nontender and will be deferred at this time as it will not significantly contribute to diagnostic workup in the emergency department. Initial workup reviewed by me, hematologic labs have no significant leukocytosis, there is hyponatremia of 118 for which crystalloid resuscitation will be converted to normal saline, hypochloremia. Lipase elevated 694 with normal baseline. Due to this we will now get diagnostic imaging of the abdomen looking for fluid collection versus worsening metastasis. EKG will be repeated given that there is chatter. Initial workup reviewed by me, no significant leukocytosis, there is a hyponatremia to severe is at 118, troponin undetectably low, lipase elevated 694. Given abdominal cancer with elevated lipase will make sure there is no evidence of new metastasis at least on CAT scan. Urinalysis interpreted by me and not consistent with infection. CT imaging of the abdomen pelvis no evidence of acute pancreatitis diffuse liver and bone metastasis progressed from prior study multiple splenic lesions that are likely metastatic in nature and enlarging upper abdominal lymph nodes also likely metastatic. On repeat evaluation patient underwent p.o. trial with successful. Shared decision making discussion was had over goals of care and patient does not want to be admitted at this point and we will follow-up Thursday morning with cancer doctor. The seriousness of her sodium abnormality was relayed to her and she understands. She has capacity to make this decision and I will support her in this decision. I offered her hospice coordination from the ER however she wishes to pursue that on an outpatient basis with Dr. Cates. Patient we discharged with a course of Phenergan and was given return precautions and verbalized understanding. Critical Care Critical Care Time Critical Care Time: No
--- NOTE | 2024-07-16 09:48 | CT_ITS ---
PROCEDURE INFORMATION: Exam: CT Abdomen And Pelvis With Contrast Exam date and time: 07/16/2024 10:09 AM Age: 73 years old Clinical indication: Condition or disease; Other: Liver cancer, pancreatitis TECHNIQUE: Imaging protocol: Computed tomography of the abdomen and pelvis with contrast. Radiation optimization: All CT scans at this facility use at least one of these dose optimization techniques: automated exposure control; mA and/or kV adjustment per patient size (includes targeted exams where dose is matched to clinical indication); or iterative reconstruction. Contrast material: ISOVUE; Contrast volume: 75 ml; Contrast route: IV; COMPARISON: CT ABDOMEN WO/W CON 06/22/2024 9:48 AM FINDINGS: Lungs: Lung bases are clear. Liver: Redemonstration of innumerable hypodense lesions throughout the liver increased in size from previous exam in presumed metastatic in nature. Gallbladder and biliary ducts: Gallbladder is unremarkable. No calcified gallstones detected. Bile ducts are not dilated. Pancreas: Pancreas is unremarkable. No pancreatic mass or evidence of pancreatitis. With Spleen: There are multiple indistinct hypodense splenic lesions measuring up to 2.5 cm more apparent on current study likely metastatic in nature. Adrenal glands: There is a 3 cm low attenuating left adrenal lesion unchanged. Right adrenal gland is unremarkable. Kidneys and ureters: Normal. No hydronephrosis. Stomach and bowel: Unremarkable. No obstruction. No mucosal thickening. Appendix: No evidence of appendicitis. Intraperitoneal space: Unremarkable. No free air. No significant fluid collection. Vasculature: Abdominal aorta and iliac vessels are diffusely calcified. There is no aortic aneurysm. Lymph nodes: There are enlarged upper abdominal lymph nodes increased in size from prior study and likely metastatic in nature. Urinary bladder: Unremarkable as visualized. Reproductive: Unremarkable as visualized. Bones/joints: There are multiple ill-defined sclerotic bone lesions throughout the lumbar spine and pelvis progress from previous exam and likely metastatic in nature. Soft tissues: Unremarkable. IMPRESSION: 1. No acute findings within the abdomen or pelvis. No evidence of acute pancreatitis. 2. Diffuse liver and bone metastasis progressed from prior study. 3. Multiple splenic lesions more apparent on the current study likely metastatic in nature. 4. Enlarging upper abdominal lymph nodes likely metastatic in nature. 5. Stable left adrenal mass probably benign.
--- NOTE | 2024-07-16 09:53 | ECG_ITS ---
APPROVED REPORT Exam: Resting ECG HR:68 bpm ECG Measurements Heart Rate 68 AXES AL 261 P 68 QRSd 81 QRS 36 QT 411 T 27 QTc 428 Conclusion SINUS RHYTHM WITH FIRST DEGREE AV BLOCK ST DEVIATION AND MODERATE T-WAVE ABNORMALITY, CONSIDER INFERIOR ISCHEMIA [-0.1+ mV T-WAVE IN II/aVF] ABNORMAL ECG Electronically signed by : NAYA MILIAN, 07/19/2024 07:03:34
[2024-07-16 09:55] LABS: Troponin I < 0.01 ng/ml (0.00-0.034)
[2024-07-16] MEDS: PROMETHAZINE HCL 25MG/ML 1ML VIAL 12.5 MG IV (10:00)
[2024-07-16] MEDS: 0.9 % SODIUM CHLORIDE 1000ML 1,000 ML 999 ML IV (10:00)
[2024-07-16] MEDS: SODIUM CHLORIDE 0.9% 25ML BAG 25 ML IV (10:02)
[2024-07-16] MEDS: SODIUM CHLORIDE 0.9% 10ML SYR (RAD ONLY) 10 ML IV (10:17)
[2024-07-16] MEDS: IOPAMIDOL-370 (76%);100ML BOTTLE 75 ML IV (10:18)
[2024-07-16 10:44] LABS: Appearance,Urine CLEAR (Clear); Bilirubin,Urine Negative (Negative); Blood, Urine TRACE-I (Negative); Color,Urine YELLOW (Yellow); Glucose,Urine (UA) TRACE (Negative); Ketones,Urine Negative (Negative); Leukocyte Esterase,Urine Negative (Negative); Microscopic, Urine URINE MICROSCOPIC (MICROSCOPIC); Nitrate,Urine Negative (Negative); PH,Urine 7.5 (5.0-8.5); Protein,Urine Negative (Negative); Urobilinogen,Urine 0.2 EU/dl (0.2)
[2024-07-16 11:08] LABS: Bacteria,Urine Trace /lpf; RBC,Urine Occasional #/hpf (0-3); Squamous Epithelial Cell,Urine Occasional #/hpf (0-5)
--- NOTE | 2024-07-16 11:58 | PC.NURSE ---
I rounded on the pt and repositioned her BP cuff. no needs voiced. call alarcon in reach.
--- NOTE | 2024-07-16 13:42 | PC.NURSE ---
DR MILIAN AT BEDSIDE TO UPDATE PT AND FAMILY
== END 2024-07-16 14:50 | disposition home or self-care (01) ==
PROVIDERS: Emergency Provider Emergency Medicine; PCP Family Medicine
DX: C79.9 Secondary malignant neoplasm of unspecified site (principal); E87.1 Hypo-osmolality and hyponatremia; R74.8 Abnormal levels of other serum enzymes; R53.1 Weakness
CPT/HCPCS: 74177; 80053; 81001; 83690; 83735; 84484; 85025; 93005; 96361; 96374; 99285; J2550; J7030; Q9967

== ENCOUNTER 2024-08-03 08:48 | Outpatient (CLI) | payer MEDICARE, SELFPAY ==
[2024-08-03 09:58] LABS: Anion Gap 11.3 mEq/L (5-15); Blood Urea Nitrogen 12 mg/dl (7-17); Calcium 9.7 mg/dl (8.4-10.2); Carbon Dioxide 27 mmol/L (22.0-30.0); Chloride 92 mmol/L (98-107); Estimated Glomerular Filt Rate 156 ml/min (>60); GFR (African American) 188 ML/MIN (>60); Glucose 103 mg/dl (74-100); Potassium 4.3 mmoL/L (3.5-5.1); Sodium 126 mmol/L (136-145)
== END 2024-08-03 23:59 | disposition home or self-care (01) ==
LOC: LAB.DROPOF 08:49
PROVIDERS: PCP Family Medicine; Visit Provider Family Medicine Hospice and Palliative Medicine
DX: C34.90 Malignant neoplasm of unspecified part of unspecified bronchus or lung (principal)
CPT/HCPCS: 80048

== ENCOUNTER 2024-08-17 08:50 | Outpatient (CLI) | payer MEDICARE, SELFPAY ==
[2024-08-17 09:21] LABS: Chloride 88 mmol/L (98-107)
[2024-08-17 09:22] LABS: Potassium 3.7 mmoL/L (3.5-5.1); Sodium 125 mmol/L (136-145)
[2024-08-17 09:24] LABS: Blood Urea Nitrogen 11 mg/dl (7-17); Estimated Glomerular Filt Rate 217 ml/min (>60); GFR (African American) 262 ML/MIN (>60)
[2024-08-17 09:25] LABS: Anion Gap 12.7 mEq/L (5-15); Calcium 9.1 mg/dl (8.4-10.2); Carbon Dioxide 28 mmol/L (22.0-30.0); Glucose 132 mg/dl (74-100)
== END 2024-08-17 23:59 | disposition home or self-care (01) ==
LOC: LAB.DROPOF 08:53
PROVIDERS: PCP Family Medicine Hospice and Palliative Medicine; Visit Provider Family Medicine Hospice and Palliative Medicine
DX: C79.9 Secondary malignant neoplasm of unspecified site (principal)
CPT/HCPCS: 80048